=== PATIENT | male | born 1970 | race Caucasian/White ===

== ENCOUNTER 2017-12-04 19:23 | Emergency (ER) | payer OTHER ==
[2017-12-04 20:10] LABS: Absolute Lymphocytes (CBC) 0.9 K/uL (0.7-4.9); Absolute Monocytes 0.4 K/uL (0.1-1.3); Absolute Neutrophil 6.2 K/uL (1.8-8.0); Basophils % 0.5 % (0-1.3); Eosinophils % 1.7 % (0-4.4); Hematocrit 38.1 % (39.6-49.0); Lymphocytes % 11.7 % (15.3-44.8); MCH 27.1 pg (27.0-35.0); MCV 80.5 fL (80-100); MPV 7.9 fL (7.6-11.3); Monocytes % 5.4 % (3.3-12.3); RBC Red Blood Cell Count 4.73 M/uL (4.33-5.43)
[2017-12-04 20:19] LABS: Protime INR 1.07
[2017-12-04 20:34] LABS: Bicarbonate 25 mEq/L (21-31); Glucose Level 99 mg/dL (65-120); Potassium 4.2 mEq/L (3.6-5.0); Sodium Level 138 mEq/L (135-145)
[2017-12-04 20:41] LABS: ALT/SGPT 19 IU/L (10-60); AST/SGOT 20 IU/L (10-42); Albumin 4.2 g/dL (3.2-5.5); Alkaline Phosphatase 84 IU/L (42-121); BUN Blood Urea Nitrogen 17 mg/dL (6-20); Bilirubin Direct 0.1 mg/dL (0-0.2); Bilirubin Total 0.5 mg/dL (0.3-1.2); Creatine Phosphokinase 260 IU/L (22-269); Glomerular Filtration Rate > 90 mL/min (=/>90); Magnesium 1.9 mg/dL (1.8-2.5)
--- NOTE | 2017-12-04 20:42 | RAD REPORT ---
EXAM DESCRIPTION: RAD - Chest Single View - 12/04/2017 8:36 pm CLINICAL HISTORY: Left-sided chest pain COMPARISON: September 11 TECHNIQUE: AP portable chest image was obtained 2020 hours . FINDINGS: Lung volumes are low similar to prior study. Prominent right heart border is also similar to comparison. Heart and vasculature are normal. No measurable pleural effusion and no pneumothorax. No failure or volume overload suspected. No acute bone finding. No acute aortic findings suspected. IMPRESSION: No acute cardiopulmonary process. No significant change from August.
--- NOTE | 2017-12-04 21:22 | RAD REPORT ---
EXAM DESCRIPTION: CT - Chest For Pe Angio - 12/04/2017 9:03 pm CLINICAL HISTORY: Left-sided chest pain COMPARISON: Chest films same date, CT trauma study March 2016 TECHNIQUE: Dynamically enhanced 3 mm thick images of the chest were obtained during administration o f approximately 150mL Isovue 370 IV contrast. Coronal and oblique reconstruction images were generate d and reviewed. Exam utilizes a protocol to evaluate the pulmonary arterial tree. All CT scans are performed using dose optimization technique as appropriate and may include automated exposure control or mA/KV adjustment according to patient size. FINDINGS: No pulmonary emboli are identified. The aorta as imaged shows no acute or suspicious finding. No pericardial thickening or effusion. No infiltrate or mass in the lung parenchyma. No pleural effusion or pleural thickening. No mediastinal or hilar suspicious masses. No chest wall masses or abnormal axillary lymphadenopathy. IMPRESSION: No pulmonary emboli identified. No other significant or suspicious findings.
[2017-12-04 21:29] LABS: Urine Blood NEGATIVE (NEG); Urine Glucose NEGATIVE (NEG); Urine Protein NEGATIVE (NEG); Urine pH 6.5 (5.0-7.0)
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
[2017-12-04 22:32] LABS: CKMB Creatine Kinase MB 2.6 ng/ml (0.3-4.0)
[2017-12-04 23:58] VITALS: TEMP 98.7
[2017-12-05 00:27] VITALS: O2SAT 99
[2017-12-05 00:28] VITALS: BP 134/87
--- NOTE | 2017-12-07 22:48 | EKG ---
Test Date: 2017-12-04 Test Time: 20:18:55 Extraction Machine Operator: SHELBY MEASUREMENT RESULTS: Intervals: Rate: 88 CT: 148 QRSD: 80 QT: 354 QTc: 428 [place]: P: 46 CT: 148 QRS: 39 T: 18 INTERPRETIVE STATEMENTS: Normal sinus rhythm Normal ECG Compared to ECG 09/11/2017 12:52:56 Sinus tachycardia no longer present T-wave abnormality no longer present Electronically Signed On 12-07-17 22:46:56 CDT by Milton Treadwell
== END 2017-12-04 23:35 | disposition home or self-care (01) ==
LOC: ER 19:23
DX: R07.89 Other chest pain (principal); E11.9 Type 2 diabetes mellitus without complications; E78.5 Hyperlipidemia, unspecified; F41.9 Anxiety disorder, unspecified; F32.9 Major depressive disorder, single episode, unspecified; Z88.8 Allergy status to other drugs, medicaments and biological substances
CPT/HCPCS: 36415; 71045; 71275; 80048; 80076; 80156; 81003; 82550 ×2; 82553 ×2; 83735; 83880; 84484 ×2; 85025; 85379; 85610; 85730; 93005; 99284; Q9967

== ENCOUNTER 2018-06-01 11:14 | Emergency (ER) | payer OTHER ==
--- OUTSIDE RECORDS SUMMARY | 2018-06-01 11:16 | XMS REPORT | Summary of Care ---
:1970 Author Organization [facility] Address [address] [place] [phone] Encounter HQ Anabellantr_huan(FIN) [id number] Date(s): 03/07/16 - 04/05/[address] [phone] Discharge Disposition: Home or Self Care Attending Physician: Rick Eli MD Referring Physician: Rick Eli MD Vital Signs No data available for this section Problem List Condition Effective Dates Status Health Status Informant Cerebral palsy1 06/10/12 Active Gastroesophageal reflux disease2 04/20/12 Active Indigestion3 06/10/12 Active Laceration of eyelid4 06/10/12 Active 1Data migrated from [employer] on 01/21/15.2Data migrated from [employer] on 01/21/15.3Data migrated from [employer] on 01/21/15.4Data migrated from [employer] on 01/21/15. Allergies, Adverse Reactions, Alerts Substance Reaction Severity Status Abilify Active ARIPiprazole1 Active Dilaudid Active HYDROmorphone2 Active 1Data migrated from [employer] on 12/22/14. Originally documented as ABILIFY. breathing problems, [id number] migrated from [employer] on 12/22/14. Originally documented as DILAUDID. has problems sleeping Medications No data available for this section Results No data available for this section Immunizations No data available for this section Procedures No data available for this section Social History No data available for this section Assessment and Plan No data available for this section
--- OUTSIDE RECORDS SUMMARY | 2018-06-01 11:16 | XMS REPORT | Summary of Care ---
:1970 Author Organization [facility] Address [address] [place] [phone] Encounter HQ Encntr_huan(FIN) [id number] Date(s): 11/30/15 - 12/29/[address] Discharge Disposition: Home Attending Physician: Laxmi Dsouza MD Vital Signs No data available for [...] 12/22/14. Originally documented as ABILIFY. breathing problems, [id number] migrated from [employer] on 12/22/14. Originally [...]
--- OUTSIDE RECORDS SUMMARY | 2018-06-01 11:16 | XMS REPORT | Summary of Care ---
:1970 Author Organization [facility] Address [address] [place] [phone] Encounter HQ Owenr_huan(FIN) [id number] Date(s): 04/16/16 - 05/15/[address] Discharge Disposition: Home or Self Care Attending Physician: Rick Eli MD Vital Signs No [...] 12/22/14. Originally documented as ABILIFY. breathing problems, [id number] migrated from [employer] on 12/22/14. Originally [...]
--- OUTSIDE RECORDS SUMMARY | 2018-06-01 11:16 | XMS REPORT | Summary of Care ---
:1970 Author Organization [facility] Address [address] [place] [phone] Encounter HQ Anabellantr_huan(FIN) [id number] Date(s): 05/16/16 - 06/14/[address] Discharge Disposition: Home or Self Care [...] 12/22/14. Originally documented as ABILIFY. breathing problems, [id number] migrated from [employer] on 12/22/14. Originally [...]
--- OUTSIDE RECORDS SUMMARY | 2018-06-01 11:16 | XMS REPORT | Summary of Care ---
:1970 Author Organization [facility] Address [address] [place] [phone] Encounter HQ Anabellantr_huan(FIN) [id number] Date(s): 10/31/15 - 11/29/[address] [phone] Discharge Disposition: Home Attending Physician: Laxmi Dsouza [...] 12/22/14. Originally documented as ABILIFY. breathing problems, [id number] migrated from [employer] on 12/22/14. Originally [...]
--- OUTSIDE RECORDS SUMMARY | 2018-06-01 11:16 | XMS REPORT | Summary of Care ---
:1970 Author Organization [facility] Address [address] [place] [phone] Encounter HQ Encntr_huan(FIN) [id number] Date(s): 10/16/15 - 11/14/[address] [phone] Discharge Disposition: Home Attending Physician: Laxmi Dsouza MD Referring Physician: Laxmi Dsouza MD Vital Signs No [...] 12/22/14. Originally documented as ABILIFY. breathing problems, [id number] migrated from [employer] on 12/22/14. Originally [...]
--- OUTSIDE RECORDS SUMMARY | 2018-06-01 11:16 | XMS REPORT | Summary of Care ---
:1970 Author Organization [facility] Address [address] [place] [phone] Encounter HQ Anabellantr_huan(FIN) [id number] Date(s): 12/28/15 - 01/26/[address] Discharge Disposition: Home Attending Physician: Laxmi [...] 12/22/14. Originally documented as ABILIFY. breathing problems, [id number] migrated from [employer] on 12/22/14. Originally [...]
--- OUTSIDE RECORDS SUMMARY | 2018-06-01 11:16 | XMS REPORT | Summary of Care ---
:1970 Author Organization [facility] Address [address] [place] [phone] Encounter HQ Clemente_huan(FIN) [id number] Date(s): 01/23/16 - 02/21/[address] Discharge Disposition: Home Attending Physician: Laxmi Dsouza MD Referring Physician: Laxmi Dsouza MD Vital Signs Most recent to oldest [Reference Range]: 1 Blood Pressure [90-140/60-90 mmHg] 133/88 mmHg (01/23/16 8:55 AM) Peripheral Pulse Rate [60-100 bpm] 89 bpm (01/23/16 8:55 AM) Problem List Condition Effective Dates Status Health [...] 12/22/14. Originally documented as ABILIFY. breathing problems, [id number] migrated from [employer] on 12/22/14. Originally [...]
--- OUTSIDE RECORDS SUMMARY | 2018-06-01 11:16 | XMS REPORT | Continuity of Care Document ---
:1970 Author Organization Interface Problems Problem Status Onset Classification Date Comments Source Date Reported LT HAND Active [facility] 017 [place] LT HAND Active [facility] 017 [place] UNK Active [facility] 017 [place] UNK Active [facility] 017 [place] DX: R25.2=CRAMP AND Active [facility] WHEELCHAIR 017 [place] B R25.2 - CRAMP AND Active [facility] OPID SPASM S62.521A - 017 [place] DISP CEREBRAL PALSY Active [facility] 016 CEREBRAL PALSY Active [facility] 016 CEREBRAL PALSEY Active [facility] 016 CEREBRAL PALSEY Active [facility] 016 C80.8 Active [facility] 016 C80.8 Active [facility] 016 Cerebral Active Problem 01/21/2017 [facility], palsy<sup>1</sup> 012 migrated SMR from [facility] [place] [facility] on 01/21/15. Indigestion<sup>3</ Active Problem 01/21/2017 [facility] sup> 012 migrated S[facility] from [facility] [place] [facility] on 01/21/15. Laceration of Active Problem 01/21/2017 [facility], eyelid<sup>4</sup> 012 migrated S[facility] from [facility] [place] [employer] on 01/21/15. Cerebral Active Problem 10/31/2016 [facility], palsy<sup>1</sup> 012 migrated [place] from [employer] on 01/21/15. Indigestion<sup>3</ Active Problem 10/31/2016 [facility] sup> 012 migrated [place] from [employer] on 01/21/15. Laceration of Active Problem 10/31/2016 Data [facility] eyelid<sup>4</sup> 012 migrated [place] from [employer] on 01/21/15. Cerebral Active Problem 12/07/2016 [facility], palsy<sup>1</sup> 012 migrated Artie from [employer] on 01/21/15. Indigestion<sup>3</ Active Problem 12/07/2016 Data [facility] sup> 012 migrated Art[place] from [employer] on 01/21/15. Laceration of Active Problem 12/07/2016 Data [facility], eyelid<sup>4</sup> 012 migrated [place] from [employer] on 01/21/15. Gastroesophageal Active Problem 01/21/2017 Data [facility], reflux 012 migrated [facility] disease<sup>2</sup> from [facility] [place] [employer] on 01/21/15. Gastroesophageal Active Problem 10/31/2016 Data [facility], reflux 012 migrated [place] disease<sup>2</sup> from [employer] on 01/21/15. Gastroesophageal Active Problem 12/07/2016 Data [facility], reflux 012 migrated [place] disease<sup>2</sup> from [employer] on 01/21/15. 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/2017 [facility] disorder [place],[facility] Nasal fracture Resolved Problem 01/21/2017 [facility] [place] Hypertension Resolved Problem 01/21/2017 [facility] [place] Depression Resolved Problem 01/21/2017 [facility] [place],[facility] TBI (<span Resolved Problem 01/21/2017 [facility] ID="[id number]">C Sha onfirmed</span>) Artie Ulcer Resolved Problem 01/21/2017 [facility] [place] CRAMP AND SPASM Active [facility] Medications Medication Details Route Status Patient Ordering Order Source Instructions Provider Date Fentanyl 25 microgram, Inactive 0.5 mL, Route: 2016 Artie IV, Drug form: INJ, Q10Min, Dosing Weight 90, kg, PRN Pain Score 6-10, Start date: 12/04/16 12:38:00 CDT, Duration: 30 day, Stop date: 01/03/17 12:37:00 CDTNotes: (Same as: Sublimaze) Preservative free. Naloxone 0.4 mg, 1 mL, Inactive Route: IVP, Drug 2016 Artie form: INJ, Q2MIN, Dosing Weight 90, kg, PRN Narcotic Reversal, Start date: 12/04/16 12:38:00 CDT, Duration: 8 doses or times, Stop date: Limited # of timesNotes: Same as Narcan Flumazenil 0.2 mg, 2 mL, Inactive Route: IVP, Drug 2016 [place] form: INJ, PRN, Dosing Weight 90, kg, PRN Benzodiazepine Reversal, Initial dose, Start date: 12/04/16 12:38:00 CDT, Duration: 30 day, Stop date: 01/03/17 12:37:00 CDTNotes: (Same as: Romazicon) Hydromorphone 0.5 mg, 0.5 mL, Inactive Route: IVP, Drug 2016 [place] form: INJ, Q5Min, Dosing Weight 90, kg, PRN Pain Score 7-10, Start date: 12/04/16 12:38:00 CDT, Duration: 4 doses or times, Stop date: Limited # of timesNotes: Same as: Dilaudid Morphine 4 mg, 1 mL, Inactive Route: IVP, Drug 2016 Artie form: INJ, Q5Min, Dosing Weight 90, kg, PRN Pain Score 7-10, Start date: 12/04/16 12:38:00 CDT, Duration: 3 doses or times, Stop date: Limited # of timesNotes: (Same as:MORPhine Sulfate) Ondansetron 4 mg, 2 mL, Inactive Route: IVP, Drug 2016 Art[place] form: INJ, ONCE, Dosing Weight 90, kg, PRN Nausea & Vomiting, Start date: 12/04/16 12:38:00 CDTNotes: (Same as: Zofran) MEDICATION WASTE Product Size: 4 mg Product Wasted: ___ mg Oxycodone 10 mg, 2 tab, Inactive Route: PO, Drug 2016 Artie form: TAB, Q4H, Dosing Weight 90, kg, PRN Pain Score 7-10, Start date: 12/04/16 12:38:00 CDT, Duration: 30 day, Stop date: 01/03/17 12:37:00 CDTNotes: (Same as: Roxicodone) ondansetron Route: IV, Drug Inactive (ANES) form: INJ, ONCE, 2016 Artie Stop date: 12/04/16 12:12:00 CDT acetaminophen 650 mg, PO, Q4H, Active 325 mg oral PRN Pain 2016 Artie tablet 1-3/Temp > 100.4 F, 0 Refill(s) tramadol 50 mg, PO, Q6H, Active hydrochloride PRN Pain Score 2016 Artie 50 MG Oral 1-3, 0 Refill(s) Tablet Tramadol 50 mg, 1 tab, Inactive Route: PO, Drug 2016 Art[place] form: TAB, Q6H, Dosing Weight 90, kg, PRN Pain Score 1-3, Start date: 12/04/16 11:44:00 CDT, Duration: 30 day, Stop date: 01/03/17 11:43:00 CDTNotes: Not to exceed 400mg/day. (Same As: Ultram) Acetaminophen 650 mg, 2 tab, Inactive Route: PO, Drug 2016 Artie form: TAB, Q4H, Dosing Weight 90, kg, PRN Pain 1-3/Temp > 100.4 F, Start date: 12/04/16 11:44:00 CDT, Duration: 30 day, Stop date: 01/03/17 11:43:00 CDTNotes: Do not exceed 4 gm/day. (Same as: Tylenol) dexamethasone Route: IV, Drug Inactive MH (ANES) form: INJ, ONCE, 2016 Artie Stop date: 12/04/16 11:32:00 CDT ceFAZolin Route: IV, Drug Inactive MH (ANES) form: INJ, ONCE, 2016 [place] Stop date: 12/04/16 11:27:00 CDT fentaNYL (ANES) Route: IV, Drug Inactive MH form: INJ, ONCE, 2016 Art[place] Stop date: 12/04/16 11:27:00 CDT propofol (ANES) Route: IV, Drug Inactive MH form: INJ, ONCE, 2016 Artie Stop date: 12/04/16 11:27:00 CDT midazolam Route: IV, Drug Inactive MH (ANES) form: SOLN, 2016 Artie ONCE, Stop date: 12/04/16 11:27:00 CDT LR 1000 mL INJ Route: IV, Total Inactive (ANES) Volume: 1,000, 2016 Artie Start date: 12/04/16 10:00:00 CDT, Stop date: 12/04/16 11:00:00 CDT ceFAZolin + 2 gm, Route: Inactive sodium chloride IVPB, OLYA, 2016 Artie 0.9% INJ 100 mL Start date: 12/04/16 8:00:00 CDT, Duration: 1 doses or timesNotes: (Same As: Abdulaziz Mendes) MEDICATION WASTE Product Size: 1000 mg Product Wasted: ___ mg Calcium 1,000 mL, Rate: Inactive Chloride 0.0014 25 ml/hr, Infuse 2016 Artie MEQ/ML / over: 40 hr, Potassium Route: IV, Chloride 0.004 Dosing Weight 90 MEQ/ML / Sodium kg, Total Chloride 0.103 Volume: 1,000, MEQ/ML / Sodium Start date: Lactate 0.028 12/04/16 7:33:00 MEQ/ML CDT, Duration: Injectable 30 day, Stop Solution date: 01/03/17 7:32:00 CDT rifaMPIN 300 mg 600 mg=2 cap, Active oral capsule PO, BID, 0 2016 [place] Refill(s) diazepam 5 mg 5 mg=1 tab, PO, Inactive oral tablet QID, 0 Refill(s) 2016 [place] pregabalin 75 75 mg=1 cap, PO, Active mg oral capsule TID, 0 Refill(s) 2016 [place] acetaminophen-c 1 tab, PO, TID, No Longer odeine #3 0 Refill(s) Active 2016 [place] Bupropion 100, PO, BID, .5 Active tab bid, 0 2016 [place] Refill(s) sertraline 100 200 mg=2 tab, Active mg oral tablet PO, Daily, 0 2016 [place] Refill(s) Allergies, Adverse Reactions, Alerts Substance Category Reaction Severity Reaction Status Date Comments Source type Reported Abilify Assertion Drug Active [facility] allergy [place] ARIPiprazol Assertion Drug Active Data [facility] e<sup>1</lofton allergy migrated [place] p> from [employer] on 12/22/14. Originally documented as ABILIFY. breathing problems, numbness Dilaudid Assertion Drug Active [facility] allergy [place] HYDROmorpho Assertion Drug Active Data [facility] ne<sup>2</s allergy migrated [place] up> from [employer] on 12/22/14. Originally documented as DILAUDID. has problems sleeping Immunizations Immunization Date Given Site Status Last Updated Comments Source Results Order Results Value Reference Date Interpretation Comments Source Name Range Vital Signs Vital Sign Value Date Comments Source Respitory Rate 15 12/04/2016 [facility] Systolic (mm Hg) 131 12/04/2016 [facility] Diastolic (mm Hg) 77 12/04/2016 [facility] Respitory Rate 16 12/04/2016 [facility] Systolic (mm Hg) 157 12/04/2016 [facility] Diastolic (mm Hg) 76 12/04/2016 [facility] Respitory Rate 15 12/04/2016 [facility] Systolic (mm Hg) 150 12/04/2016 [facility] Diastolic (mm Hg) 106 12/04/2016 [facility] Heart Rate 72 11/27/2016 [facility] BMI Calculated 30.17 11/27/2016 [facility] Weight 90 11/27/2016 [facility] Height 172.72 cm 11/27/2016 [facility] Systolic (mm Hg) 133 01/23/2016 [facility] Diastolic (mm Hg) 88 01/23/2016 [facility] Heart Rate 89 01/23/2016 [facility] Height 175.26 cm 10/16/2015 [facility] Heart Rate 68 10/16/2015 [facility] Systolic (mm Hg) 136 10/16/2015 [facility] Diastolic (mm Hg) 96 10/16/2015 [facility] Encounters Location Location Encounter Encounter Reason Attending ADM DC Status Source Details Type Number For Provider Date Date Visit [facility] Tots [id number] Laxmi 09/18 10/18 [facility] OP [id number] Laxmi 10/16 11/14 [facility] ([place], [place] Tots [id number] Laxmi 10/30 11/29 [facility] Lianna Emmanuel [facility] Tots [id number] Laxmi 11/29 12/29 [facility] Lianna [facility] Tots [id number] Laxmi 12/27 01/26 [facility] Lianna [place] [facility] OP [id number] Laxmi 01/22 02/21 [facility] ([place], [place] Tots [id number] Rick 03/07 04/06 [facility] Sreedhar Emmanuel [facility] Tots [id number] Rick 04/16 05/16 [facility] Sreedhar Emmanuel [facility] Tots [id number] Rick 05/16 06/15 [facility] [id number] Jc Luis 10/28 10/29 [facility] /2016 [facility] Day Surgery [id number] Jc Luis 12/04 12/04 [facility] OP Therapy [id number] Jc Smith 12/20 01/19 [facility] [place] /[place] Procedures Procedure Code Date Perfomer Comments Source Appendectomy [id number] [facility] [place] Operation<sup>1</s [id number] placed [facility] up> Baclofen pump [place] Appendectomy [id number] [facility] Operation<sup>1</s [id number] placed [facility] up> Baclofen pump
--- OUTSIDE RECORDS SUMMARY | 2018-06-01 11:16 | XMS REPORT | Summary of Care ---
:1970 Author Organization [facility] Address [address] [place] [phone] Encounter [facility]STAS[facility]) [id number] Date(s): 09/18/15 - 10/17/[address] [phone] Discharge Disposition: Home Attending Physician: Laxmi Dsouza MD Referring Physician: Laxmi Dsouza MD Vital Signs Most recent to oldest [Reference Range]: 1 Height 175.26 cm (10/16/15 1:31 PM) Blood Pressure [90-140/60-90 mmHg] 136/96 mmHg (10/16/15 1:31 PM) Peripheral Pulse Rate [60-100 bpm] 68 bpm (10/16/15 1:31 PM) Problem List Condition Effective Dates Status Health [...] 12/22/14. Originally documented as ABILIFY. breathing problems, [id number] migrated from [employer] on 12/22/14. Originally [...]
--- OUTSIDE RECORDS SUMMARY | 2018-06-01 11:17 | XMS REPORT | Summary of Care ---
:1970 Author Organization [facility] Address [id number] [place] [phone]- Encounter [facility](FIN) [id number] Date(s): 12/04/16 - 12/04/16 [facility] [id number] [place] [phone] Discharge Disposition: Home or Self Care Attending Physician: Jc Smith MD Referring Physician: Jc Smith MD Vital Signs Most recent to oldest 1 2 3 [Reference Range]: Height 172.72 cm (11/27/16 1:04 PM) Blood Pressure [90-140/60-90 131/77 mmHg 157/76 mmHg 150/106 mmHg mmHg] (12/04/16 2:30 PM) *HI* *HI* (12/04/16 1:05 PM) (12/04/16 12:50 PM) Respiratory Rate [14-20 BRMIN] 15 BRMIN 16 BRMIN 15 BRMIN (12/04/16 2:30 PM) (12/04/16 1:05 PM) (12/04/16 12:50 PM) Peripheral Pulse Rate [60-100 72 bpm bpm] (11/27/16 1:54 PM) Weight 90 kg (11/27/16 1:04 PM) Body Mass Index 30.17 m2 (11/27/16 1:04 PM) Problem List Condition Effective Dates Status Health Status Informant Anxiety(Confirmed) Resolved Cerebral palsy(Confirmed) Resolved Cerebral palsy1 06/10/12 Active CVA (cerebral vascular Resolved accident)(Confirmed) Carpal tunnel syndrome(Confirmed) Active Expressive language Resolved disorder(Confirmed) Nasal fracture(Confirmed) Resolved Gastroesophageal reflux disease2 04/20/12 Active Hypertension(Confirmed) Resolved Indigestion3 06/10/12 Active Laceration of eyelid4 06/10/12 Active Depression(Confirmed) Resolved TBI (traumatic brain Resolved injury)(Confirmed) Ulcer(Confirmed) Resolved 1Data migrated from [employer] on 01/21/15.2Data migrated from [employer] on 01/21/15.3Data migrated from [employer] on 01/21/15.4Data migrated from [employer] on 01/21/15. Allergies, Adverse Reactions, Alerts Substance Reaction Severity Status Abilify Active ARIPiprazole1 Active Dilaudid Active HYDROmorphone2 Active 1Data migrated from [employer] on 12/22/14. Originally documented as ABILIFY. breathing problems, [id number] migrated from [employer] on 12/22/14. Originally documented as DILAUDID. has problems sleeping Medications acetaminophen 650 mg, 2 tab, Route: PO, Drug form: TAB, Q4H, Dosing Weight 90, kg, PRN Pain 1- 3/Temp > 100.4 F, Start date: 12/04/16 11:44:00 CDT, Duration: 30 day, Stop date : 01/03/17 11:43:00 CDT Notes: Do not exceed 4 gm/day. (Same as: Tylenol) Start Date: 12/04/16 Stop Date: 12/04/16 Status: Discontinuedacetaminophen 325 mg oral tablet 650 mg, PO, Q4H, PRN Pain 1-3/Temp > 100.4 F, 0 Refill(s) Start Date: 12/04/16 Status: Orderedacetaminophen-codeine #3 1 tab, PO, TID, 0 Refill(s) Start Date: 11/27/16 Stop Date: 12/04/16 Status: DiscontinuedANES flumazenil 0.2 mg, 2 mL, Route: IVP, Drug form: INJ, PRN, Dosing Weight 90, kg, PRN Benzodiazepine Reversal, Initial dose, Start date: 12/04/16 12:38:00 CDT, Duration: 30 day, Stop date: 01/03/17 12:37:00 CDT Notes: (Same as: Romazicon) Start Date: 12/04/16 Stop Date: 12/04/16 Status: DiscontinuedANES HYDROmorphone 0.5 mg, 0.5 mL, Route: IVP, Drug form: INJ, Q5Min, Dosing Weight 90, kg, PRN Pain Score 7-10, Start date: 12/04/16 12:38:00 CDT, Duration: 4 doses or times, Stop date: Limited # of times Notes: Same as: Dilaudid Start Date: 12/04/16 Stop Date: 12/04/16 Status: DiscontinuedANES morphine Sulfate 4 mg, 1 mL, Route: IVP, Drug form: INJ, Q5Min, Dosing Weight 90, kg, PRN Pain Score 7-10, Start date: 12/04/16 12:38:00 CDT, Duration: 3 doses or times, Stop date: Limited # of times Notes: (Same as:MORPhine Sulfate) Start Date: 12/04/16 Stop Date: 12/04/16 Status: DiscontinuedANES naloxone 0.4 mg, 1 mL, Route: IVP, Drug form: INJ, Q2MIN, Dosing Weight 90, kg, PRN Narcotic Reversal, Start date: 12/04/16 12:38:00 CDT, Duration: 8 doses or times , Stop date: Limited # of times Notes: Same as Narcan Start Date: 12/04/16 Stop Date: 12/04/16 Status: DiscontinuedANES ondansetron 4 mg, 2 mL, Route: IVP, Drug form: INJ, ONCE, Dosing Weight 90, kg, PRN Nausea & amp; Vomiting, Startdate: 12/04/16 12:38:00 CDT Notes: (Same as: [place]) MEDICATION WASTE Product Size: 4 mgProduct Wasted: ___ mg Start Date: 12/04/16 Stop Date: 12/04/16 Status: DiscontinuedANES oxyCODONE 10 mg, 2 tab, Route: PO, Drug form: TAB, Q4H, Dosing Weight 90, kg, PRN Pain Score 7-10, Start date:12/04/16 12:38:00 CDT, Duration: 30 day, Stop date: 01/03 12:37:00 CDT Notes: (Same as: Roxicodone) Start Date: 12/04/16 Stop Date: 12/04/16 Status: DiscontinuedbuPROPion 100, PO, BID, .5 tab bid, 0 Refill(s) Start Date: 11/27/16 Status: OrderedceFAZolin (ANES) Route: IV, Drug form: INJ, ONCE, Stop date: 12/04/16 11:27:00 CDT Start Date: 12/04/16 Stop Date: 12/04/16 Status: CompletedceFAZolin + sodium chloride 0.9% INJ 100 mL 2 gm, Route: IVPB, ONCALL, Start date: 12/04/16 8:00:00 CDT, Duration: 1 doses or times Notes: (Same As: Abdulaziz Mendes) MEDICATION WASTE Product Size: 1000 mgProduct Wasted: ___ mg Start Date: 12/04/16 Stop Date: 12/04/16 Status: Discontinueddexamethasone (ANES) Route: IV, Drug form: INJ, ONCE, Stop date: 12/04/16 11:32:00 CDT Start Date: 12/04/16 Stop Date: 12/04/16 Status: Completeddiazepam 5 mg oral tablet 5 mg=1 tab, PO, QID, 0 Refill(s) Start Date: 11/27/16 Stop Date: 11/27/16 Status: CompletedfentaNYL 25 microgram, 0.5 mL, Route: IV, Drug form: INJ, Q10Min, Dosing Weight 90, kg, PRN Pain Score 6-10, Start date: 12/04/16 12:38:00 CDT, Duration: 30 day, Stop date: 01/03/17 12:37:00 CDT Notes: (Same as: Sublimaze) Preservative free. Start Date: 12/04/16 Stop Date: 12/04/16 Status: DiscontinuedfentaNYL (ANES) Route: IV, Drug form: INJ, ONCE, Stop date: 12/04/16 11:27:00 CDT Start Date: 12/04/16 Stop Date: 12/04/16 Status: CompletedLactated Ringers 1,000 mL 1,000 mL, Rate: 25 ml/hr, Infuse over: 40 hr, Route: IV, Dosing Weight 90 kg, Total Volume: 1,000, Start date: 12/04/16 7:33:00 CDT, Duration: 30 day, Stop date: 01/03/17 7:32:00 CDT Start Date: 12/04/16 Stop Date: 12/04/16 Status: DiscontinuedLR 1000 mL INJ (ANES) Route: IV, Total Volume: 1,000, Start date: 12/04/16 10:00:00 CDT, Stop date: 11:00:00 CDT Start Date: 12/04/16 Stop Date: 12/04/16 Status: Completedmidazolam (ANES) Route: IV, Drug form: SOLN, ONCE, Stop date: 12/04/16 11:27:00 CDT Start Date: 12/04/16 Stop Date: 12/04/16 Status: Completedondansetron (ANES) Route: IV, Drug form: INJ, ONCE, Stop date: 12/04/16 12:12:00 CDT Start Date: 12/04/16 Stop Date: 12/04/16 Status: Completedpregabalin 75 mg oral capsule 75 mg=1 cap, PO, TID, 0 Refill(s) Start Date: 11/27/16 Status: Orderedpropofol (ANES) Route: IV, Drug form: INJ, ONCE, Stop date: 12/04/16 11:27:00 CDT Start Date: 12/04/16 Stop Date: 12/04/16 Status: CompletedrifaMPIN 300 mg oral capsule 600 mg=2 cap, PO, BID, 0 Refill(s) Start Date: 11/27/16 Status: Orderedsertraline 100 mg oral tablet 200 mg=2 tab, PO, Daily, 0 Refill(s) Start Date: 11/27/16 Status: Orderedtramadol 50 mg, 1 tab, Route: PO, Drug form: TAB, Q6H, Dosing Weight 90, kg, PRN Pain Score 1-3, Start date: 12/04/16 11:44:00 CDT, Duration: 30 day, Stop date: 01/03 11:43:00 CDT Notes: Not to exceed 400mg/day. (Same As: Ultram) Start Date: 12/04/16 Stop Date: 12/04/16 Status: Discontinuedtramadol 50 mg oral tablet 50 mg, PO, Q6H, PRN Pain Score 1-3, 0 Refill(s) Start Date: 12/04/16 Status: Ordered Results No data available for this section Immunizations No data available for this section Procedures Procedure Date Related Diagnosis Body Site Appendectomy Operation1 1placed Baclofen pump Social History Social History Type Response Smoking Status Never smoker; Previous treatment: None; Ready to change: No; Concerns about tobacco use in household: No; Exposure to Tobacco Smoke None; Cigarette Smoking Last 365 Days No; Reg Smoking Cessation Counseling No Assessment and Plan No data available for this section
--- OUTSIDE RECORDS SUMMARY | 2018-06-01 11:17 | XMS REPORT | Summary of Care ---
:1970 Author Organization [facility] Address [address] [place], [place] [address]- Encounter [facility](FIN) [id number] Date(s): 10/28/16 - 10/28/16 [facility] [address] [place] [address]- Discharge Disposition: Home or Self Care Attending Physician: Jc Smith MD Referring Physician: Jc Smith MD Vital Signs No data available for [...] 12/22/14. Originally documented as ABILIFY. breathing problems, [id number] migrated from [employer] on 12/22/14. Originally [...]
--- OUTSIDE RECORDS SUMMARY | 2018-06-01 11:17 | XMS REPORT | Summary of Care ---
:1970 Author Organization [facility] Encounter [facility]) [id number] Date(s): 12/20/16 - 01/18/17 [facility] [place] Discharge Disposition: Home or Self Care Attending Physician: Jc Smith MD Vital Signs No [...] 12/22/14. Originally documented as ABILIFY. breathing problems, [id number] migrated from [employer] on 12/22/14. Originally [...]
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
[2018-06-01] MEDS ORDERED: HYDROCODONE/APAP 5/325 MG TAB ONE (12:06)
[2018-06-01 13:19] VITALS: TEMP 98.9
[2018-06-01 13:20] VITALS: O2SAT 95
[2018-06-01 13:21] VITALS: BP 121/87
== END 2018-06-01 13:14 | disposition home or self-care (01) ==
LOC: ER 11:14
DX: T21.23XA Burn of second degree of upper back, initial encounter (principal); X11.8XXA Contact with other hot tap-water, initial encounter; Y93.9 Activity, unspecified; Y92.009 Unspecified place in unspecified non-institutional (private) residence as the place of occurrence of the external cause; Z88.5 Allergy status to narcotic agent; Z88.8 Allergy status to other drugs, medicaments and biological substances; E78.5 Hyperlipidemia, unspecified; E11.9 Type 2 diabetes mellitus without complications; F32.9 Major depressive disorder, single episode, unspecified; F41.9 Anxiety disorder, unspecified
CPT/HCPCS: 99284

== ENCOUNTER 2018-08-29 18:56 | Emergency (ER) | payer OTHER ==
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
[2018-08-29] MEDS ORDERED: MORPHINE 4 MG/ML SYR ONE (20:11)
[2018-08-29] MEDS ORDERED: ONDANSETRON 4 MG/2 ML VIAL ONE (20:11)
[2018-08-29] MEDS ORDERED: NA CHLORIDE 0.9% 500 ML ONE (20:11)
[2018-08-29 20:19] LABS: Absolute Lymphocytes (CBC) 1.3 K/uL (0.7-4.9); Absolute Monocytes 0.6 K/uL (0.1-1.3); Absolute Neutrophil 3.8 K/uL (1.8-8.0); Basophils % 0.5 % (0-1.3); Eosinophils % 2.7 % (0-4.4); Hematocrit 42.6 % (39.6-49.0); Lymphocytes % 21.5 % (15.3-44.8); MPV 7.7 fL (7.6-11.3); Monocytes % 10.2 % (3.3-12.3); RBC Red Blood Cell Count 5.23 M/uL (4.33-5.43)
[2018-08-29 20:40] LABS: Albumin 3.7 g/dL (3.4-5.0); Bilirubin Direct 0.1 mg/dL (0-0.2); Bilirubin Total 0.3 mg/dL (0.2-1.0); Potassium 4.1 mmol/L (3.5-5.1)
--- NOTE | 2018-08-29 21:57 | RAD REPORT ---
EXAM DESCRIPTION: CT - Abdomen Pelvis W Contrast - 08/29/2018 9:33 pm CLINICAL HISTORY: Abdominal pain with dysuria COMPARISON: 2015 TECHNIQUE: Computed axial tomography of the abdomen pelvis was obtained. 100 cc Isovue-300 was admin istered intravenously. Oral contrast was not requested which limits evaluation of bowel. All CT scans are performed using dose optimization technique as appropriate and may include automated exposure control or mA/KV adjustment according to patient size. FINDINGS: The liver, spleen, pancreas, adrenal and kidneys appear unremarkable. There is no evidence of diverticulitis. The appendix is not seen. A neuro stimulator device is in place within the spinal canal. An umbilical hernia contains fat. The neck measures 15 millimeters Small left inguinal hernia contains fat IMPRESSION: No acute abnormality is displayed.
--- NOTE | 2018-08-29 22:05 | RAD REPORT ---
EXAM DESCRIPTION: US - Scrotum Testicles - 08/29/2018 9:26 pm CLINICAL HISTORY: Scrotal pain COMPARISON: None FINDINGS: Right testicle measures 4.6 x 2.5 x 3 centimeters. Echotexture is homogeneous. Normal bloo d flow Left testicle measures 4.3 x 2.3 x 2.7 centimeters. Echotexture is homogeneous. Normal blood flow The epididymides are normal in size and echotexture. Normal blood flow is seen. 5 millimeter left spermatocele Small hydroceles probably physiologic IMPRESSION: 5 millimeter left spermatocele
[2018-08-29 22:19] LABS: Urine Blood NEGATIVE (NEG); Urine Glucose NEGATIVE (NEG); Urine Protein NEGATIVE (NEG); Urine Specific Gravity 1.015 (1.005-1.030); Urine pH 7.5 (5.0-7.0)
[2018-08-29] MEDS ORDERED: AZITHROMYCIN 250 MG TAB ONE (22:27)
[2018-08-29] MEDS ORDERED: CEFTRIAXONE/SWI 1gm 1 GM/10 ML SYR ONE (22:28)
[2018-08-29] MEDS ORDERED: KETOROLAC 30 MG/ML INJ ONE (22:28)
[2018-08-29] MEDS ORDERED: HYDROCODONE/APAP 7.5/325 MG TAB ONE (22:28)
[2018-08-29 22:30] LABS: Urine Bacteria NONE SEEN /HPF (NONE SEEN); Urine Culture Reflex Order NOT NEEDED; Urine RBC <5 /HPF (NONE SEEN)
--- NOTE | 2018-08-29 22:48 | EDPHYS ---
Physician Documentation [facility] Name: Dante Staton Age: 47 yrs Sex: Male : 1970 Arrival Date: 08/29/2018 Time: 19:01 Bed 19 Private MD: ED Physician Ladarius Gillette HPI: 08/29 19:45 This 47 yrs old Male presents to ER via EMS with complaints of Pain With cp Urination, Abdominal Pain. 19:45 The patient presents with swelling, tenderness, of the head of penis and shaft of cp penis, urinary symptoms, pain with urination. Onset: The symptoms/episode began/occurred today. Associated signs and symptoms: Pertinent positives: abdominal pain, Pertinent negatives: diarrhea, fever, hematuria, vomiting. Severity of symptoms: in the emergency department the symptoms are unchanged, despite home interventions. Patient reports having unprotected intercourse with new partner last night. Historical: - Allergies: 19:19 hydromorphone HCl; em 19:19 ARIPIPRAZOLE; em 19:19 meperidine HCl; em - PMHx: 19:19 Anxiety; Cerebral Palsy; Depression; Diabetes - NIDDM; gastric ulcer; Hyperlipidemia; em CP; insomina; TBI; - Immunization history:: Adult Immunizations up to date. - Social history:: Smoking status: Patient/guardian denies using tobacco. - Ebola Screening: : Patient negative for fever greater than or equal to 101.5 degrees Fahrenheit, and additional compatible Ebola Virus Disease symptoms Patient denies exposure to infectious person Patient denies travel to an Ebola-affected area in the 21 days before illness onset No symptoms or risks identified at this time. ROS: 20:00 Constitutional: Negative for body aches, chills, fever, poor PO intake. cp 20:00 Eyes: Negative for injury, pain, redness, and discharge. cp 20:00 ENT: Negative for drainage from ear(s), ear pain, sore throat, difficulty swallowing, difficulty handling secretions. 20:00 Cardiovascular: Negative for chest pain, palpitations. 20:00 Respiratory: Negative for cough, shortness of breath, wheezing. 20:00 Abdomen/GI: Positive for abdominal pain, Negative for vomiting, diarrhea, constipation, black/tarry stool, rectal bleeding. 20:00 : Positive for urinary symptoms, penile pain, testicular pain 20:00 Skin: Negative for cellulitis, rash. 20:00 All other systems are negative. Exam: 20:05 Constitutional: The patient appears in no acute distress, alert, awake, non-toxic, well cp developed, well nourished, uncomfortable. 20:05 Head/Face: Normocephalic, atraumatic. cp 20:05 Eyes: Periorbital structures: appear normal, Conjunctiva: normal, no exudate, no injection, Sclera: no appreciated abnormality, Lids and lashes: appear normal, bilaterally. 20:05 ENT: External ear(s): are unremarkable, Nose: is normal, Mouth: Lips: normal, Oral mucosa: normal. 20:05 Chest/axilla: Inspection: normal, Palpation: is normal, no crepitus, no tenderness. 20:05 Cardiovascular: Rate: normal, Rhythm: regular. cp 20:05 Respiratory: the patient does not display signs of respiratory distress, Respirations: cp normal, no use of accessory muscles, no retractions, no splinting, no tachypnea, labored breathing, is not present. 20:05 Abdomen/GI: Inspection: scar(s), Bowel sounds: active, all quadrants, Palpation: soft, in all quadrants, moderate abdominal tenderness, in the right lower quadrant and left lower quadrant, rebound tenderness, is not appreciated, involuntary guarding, is not appreciated. 20:05 : Male external genitalia: swelling, penile, that is mild, tenderness, of the head of penis and shaft of penis is noted, noted ecchymosis penile shaft, Sexual behavior: the patient is sexually active. 20:05 Skin: cellulitis, is not appreciated, no rash present. Vital Signs: 19:19 BP 161 / 93; Pulse 86; Resp 18; Temp 98.0; Pulse Ox 97% on R/A; Weight 127.01 kg; em Height 5 ft. 9 in. (175.26 cm); Pain 10/10; 20:30 BP 132 / 94; Pulse 78; Resp 18; Pulse Ox 99% ; rr5 21:40 BP 129 / 96; Pulse 84; Resp 19; Pulse Ox 99% ; rr5 22:30 BP 133 / 70; Pulse 80; Resp 17; Pulse Ox 99% ; rr5 23:30 BP 121 / 76; Pulse 76; Resp 18; Pulse Ox 98% ; rr5 01/06 00:00 BP 125 / 70; Pulse 75; Resp 18; Pulse Ox 98% ; rr5 08/29 19:19 Body Mass Index 41.35 (127.01 kg, 175.26 cm) em MDM: 08/29 19:03 Patient medically screened. [facility] 22:45 Data reviewed: vital signs, nurses notes, and as a result, I will discharge patient. 22:45 Counseling: I had a detailed discussion with the patient and/or guardian regarding: the cp historical points, exam findings, and any diagnostic results supporting the discharge/admit diagnosis, lab results, radiology results, to return to the emergency department if symptoms worsen or persist or if there are any questions or concerns that arise at home. Response to treatment: the patient's symptoms have markedly improved after treatment. 08/29 19:37 Order name: Urine Microscopic Only; Complete Time: 22:39 cp 08/29 22:39 Interpretation: Reviewed. cp 08/29 19:37 Order name: Basic Metabolic Panel; Complete Time: 22:08 cp 08/29 22:08 Interpretation: Normal except: GFR 73. cp 08/29 19:37 Order name: CBC with Diff; Complete Time: 22:08 cp 08/29 19:37 Order name: Creatinine for Radiology; Complete Time: 22:08 cp 08/29 19:37 Order name: Hepatic Function; Complete Time: 22:08 cp 08/29 19:37 Order name: Lipase; Complete Time: 22:08 cp 08/29 19:37 Order name: US Scrotum Testicles; Complete Time: 22:08 cp 08/29 19:39 Order name: CT Abd/Pelvis - W/Contrast: no oral contrast; Complete Time: 22:08 cp 08/29 22:05 Order name: Urine Dipstick--Ancillary (enter results); Complete Time: 22:39 em1 08/29 22:39 Interpretation: Normal except: UPH 7.5. cp 08/29 19:37 Order name: Urine Dipstick-Ancillary (obtain specimen); Complete Time: 22:07 cp 08/29 19:37 Order name: IV Saline Lock; Complete Time: 20:11 cp 08/29 19:37 Order name: Labs collected and sent; Complete Time: 20:11 cp 08/29 19:39 Order name: Bladder Scanner: pre and post void; Complete Time: 19:46 cp Administered Medications: 20:10 Drug: Zofran 4 mg Route: IVP; Site: right forearm; rr5 08/30 00:00 Follow up: Response: No adverse reaction rr5 08/29 20:11 Drug: NS 0.9% 500 ml Route: IV; Rate: bolus; Site: right forearm; rr5 21:30 Follow up: Response: No adverse reaction; IV Status: Completed infusion; IV Intake: rr5 500ml 20:12 Drug: morphine 4 mg Route: IVP; Site: right forearm; rr5 08/30 00:00 Follow up: Response: No adverse reaction rr5 08/29 22:30 Drug: Hydrocodone-Acetaminophen (7.5 mg-325 mg) 1 tabs Route: PO; rr5 08/30 00:00 Follow up: Response: No adverse reaction rr5 08/29 22:32 Drug: Zithromax 1 grams Route: PO; rr5 08/30 00:00 Follow up: Response: No adverse reaction rr5 08/29 22:33 Drug: TORadol 30 mg Route: IVP; Site: right forearm; rr5 08/30 00:00 Follow up: Response: No adverse reaction rr5 08/29 22:35 Drug: Rocephin - (cefTRIAXone) 1 grams Route: IVPB; Infused Over: 30 mins; Site: right rr5 forearm; 23:05 Follow up: IV Status: Completed infusion rr5 Disposition: 08/29/18 22:48 Discharged to Home. Impression: Abdominal and pelvic pain - s/p sexual encounter. - Condition is Stable. - Discharge Instructions: Abdominal Pain, Adult, Pelvic Pain, Male. - Prescriptions for Anaprox DS 550 mg Oral Tablet - take 1 tablet by ORAL route every 12 hours As needed; 20 tablet. Ultram 50 mg Oral Tablet - take 1 tablet by ORAL route every 6 hours As needed; 15 tablet. - Medication Reconciliation Form, Thank You Letter, Antibiotic Education, Prescription Opioid Use form. - Follow up: Private Physician; When: 2 - 3 days; Reason: Recheck today's complaints. - Problem is new. - Symptoms have improved. Addendum: 09/02/2018 07:36 Co-signature as Attending Physician, Ladarius Gillette MD I agree with the assessment and c sher plan of care. Signatures: Dispatcher [employer] Ladarius Sheehan MD MD cha Munoz, Edgar, SHOE HANDLER SHOE HANDLER em Ladarius Rubin PA PA cp Chalino Ashton, RN RN rr5 Corrections: (The following items were deleted from the chart) 08/30 00:23 08/29 22:48 08/29/2018 22:48 Discharged to Home. Impression: Abdominal and pelvic pain rr5 - s/p sexual encounter. Condition is Stable. Forms are Medication Reconciliation Form, Thank You Letter, Antibiotic Education, Prescription Opioid Use. Follow up: Private Physician; When: 2 - 3 days; Reason: Recheck today's complaints. Problem is new. Symptoms have improved. cp
--- NOTE | 2018-08-29 22:48 | ER ---
Nurse's Notes [facility] Name: Dante Staton Age: 47 yrs Sex: Male : 1970 Arrival Date: 08/29/2018 Time: 19:01 Bed 19 Private MD: Diagnosis: Abdominal and pelvic pain-s/p sexual encounter Presentation: 08/29 19:13 Presenting complaint: EMS states: called out for abdominal pain and burning with em urination since last night, denies N/V/fever, pt also reports having sex last night and c/o of penile pain, swelling and bruising noted to area. Transition of care: patient was not received from another setting of care. Onset of symptoms was August 28, 2017. Risk Assessment: Do you want to hurt yourself or someone else? Patient reports no desire to harm self or others. Initial Sepsis Screen: Does the patient meet any 2 criteria? No. Patient's initial sepsis screen is negative. Does the patient have a suspected source of infection? Yes: Dysuria/Frequency/Urgency/UTI. Care prior to arrival: None. 19:13 Method Of Arrival: EMS: [facility] em 19:21 Acuity: ROMAIN 3 iw Triage Assessment: 19:19 General: Appears in no apparent distress. comfortable, Behavior is calm, cooperative. em Pain: Complains of pain in abdomen and pelvis Pain currently is 10 out of 10 on a pain scale. GI: Abdomen is round non-distended, Bowel sounds present X 4 quads. Historical: - Allergies: 19:19 hydromorphone HCl; em 19:19 ARIPIPRAZOLE; em 19:19 meperidine HCl; em - PMHx: 19:19 Anxiety; Cerebral Palsy; Depression; Diabetes - NIDDM; gastric ulcer; Hyperlipidemia; em CP; insomina; TBI; - Immunization history:: Adult Immunizations up to date. - Social history:: Smoking status: Patient/guardian denies using tobacco. - Ebola Screening: : Patient negative for fever greater than or equal to 101.5 degrees Fahrenheit, and additional compatible Ebola Virus Disease symptoms Patient denies exposure to infectious person Patient denies travel to an Ebola-affected area in the 21 days before illness onset No symptoms or risks identified at this time. Screenin:15 Abuse screen: Denies threats or abuse. Nutritional screening: No deficits noted. em Tuberculosis screening: No symptoms or risk factors identified. Fall Risk None identified. Assessment: 19:25 General: Appears in no apparent distress. uncomfortable, Behavior is calm, cooperative, rr5 appropriate for age. Pain: Complains of pain in abdomen and penile area Pain does not radiate. Pain currently is 10 out of 10 on a pain scale. Quality of pain is described as burning, aching, Pain began gradually, Is intermittent. Neuro: Level of Consciousness is awake, alert, obeys commands, Oriented to person, place, time, situation, Appropriate for age history cerebral palsy . Speech is slurred, stuttering with cerebral palsy . Cardiovascular: Capillary refill < 3 seconds Patient's skin is warm and dry. Respiratory: Airway is patent Respiratory effort is even, unlabored, Respiratory pattern is regular, symmetrical. : Swelling noted on penis on scrotum redness,hematoma around the penis and scrotum noted. EENT: No signs and/or symptoms were reported regarding the EENT system. Derm: Skin is intact, Skin temperature is warm. Musculoskeletal: stiffness on extremities. ambulation via wheelchair. 19:25 GI: pain for pump at left lower quadrant area. rr5 19:46 Reassessment: bladder scan pre is 97ml. rr5 20:40 Reassessment: Patient appears in no apparent distress at this time. Patient and/or rr5 family updated on plan of care and expected duration. Pain level reassessed. sent for ct scan Patient states symptoms have improved. 21:40 Reassessment: Patient appears in no apparent distress at this time. Patient and/or rr5 family updated on plan of care and expected duration. Pain level reassessed. awaiting for review Patient states feeling better. Patient states symptoms have improved. 22:00 Reassessment: Patient appears in no apparent distress at this time. Patient and/or rr5 family updated on plan of care and expected duration. Pain level reassessed. post void 50ml Patient states symptoms have improved. 22:30 Reassessment: Patient appears in no apparent distress at this time. Patient and/or rr5 family updated on plan of care and expected duration. Pain level reassessed. Patient states feeling better. Patient states symptoms have improved. 23:30 Reassessment: Patient appears in no apparent distress at this time. Patient and/or rr5 family updated on plan of care and expected duration. Pain level reassessed. awaiting for EMS transport Patient states feeling better. Patient states symptoms have improved. 08/30 00:20 Reassessment: Patient appears in no apparent distress at this time. handover to clute rr5 EMS discharge instruction and prescription given to ptaient. Vital Signs: 08/29 19:19 BP 161 / 93; Pulse 86; Resp 18; Temp 98.0; Pulse Ox 97% on R/A; Weight 127.01 kg; em Height 5 ft. 9 in. (175.26 cm); Pain 10/10; 20:30 BP 132 / 94; Pulse 78; Resp 18; Pulse Ox 99% ; rr5 21:40 BP 129 / 96; Pulse 84; Resp 19; Pulse Ox 99% ; rr5 22:30 BP 133 / 70; Pulse 80; Resp 17; Pulse Ox 99% ; rr5 23:30 BP 121 / 76; Pulse 76; Resp 18; Pulse Ox 98% ; rr5 08/30 00:00 BP 125 / 70; Pulse 75; Resp 18; Pulse Ox 98% ; rr5 08/29 19:19 Body Mass Index 41.35 (127.01 kg, 175.26 cm) em ED Course: 08/29 19:01 Patient arrived in ED. em 19:02 Simon Phillips NP is PHCP. pm1 19:02 Ladarius Gillette MD is Attending Physician. pm1 19:12 Zachariah Salcedo LVN is Primary Nurse. em 19:19 Arm band placed on. em 19:19 Patient has correct armband on for positive identification. Placed in gown. Bed in low em position. Call light in reach. Side rails up X2. Pulse ox on. NIBP on. 19:21 Triage completed. iw 19:21 PHCP role handed off by Simon Phillips NP cp 19:21 Ladarius Rubin PA is PHCP. cp 20:00 Inserted saline lock: 20 gauge in right forearm, using aseptic technique. Blood rr5 collected. 20:48 Radiology exam delayed due to pt having CT exam. sg3 21:26 US Scrotum Testicles In Process Unspecified. EDMS 21:33 CT Abd/Pelvis - W/Contrast: no oral contrast In Process Unspecified. EDMS 22:13 Primary Nurse role handed off by Zachariah Salcedo LVN ed1 22:14 Chalino Ashton, EDILIA is Primary Nurse. rr5 08/30 00:20 No provider procedures requiring assistance completed. IV discontinued, intact, rr5 bleeding controlled, No redness/swelling at site. Pressure dressing applied. Administered Medications: 08/29 20:10 Drug: Zofran 4 mg Route: IVP; Site: right forearm; rr5 08/30 00:00 Follow up: Response: No adverse reaction rr5 08/29 20:11 Drug: NS 0.9% 500 ml Route: IV; Rate: bolus; Site: right forearm; rr5 21:30 Follow up: Response: No adverse reaction; IV Status: Completed infusion; IV Intake: rr5 500ml 20:12 Drug: morphine 4 mg Route: IVP; Site: right forearm; rr5 08/30 00:00 Follow up: Response: No adverse reaction rr5 08/29 22:30 Drug: Hydrocodone-Acetaminophen (7.5 mg-325 mg) 1 tabs Route: PO; rr5 08/30 00:00 Follow up: Response: No adverse reaction rr5 08/29 22:32 Drug: Zithromax 1 grams Route: PO; rr5 08/30 00:00 Follow up: Response: No adverse reaction rr5 08/29 22:33 Drug: TORadol 30 mg Route: IVP; Site: right forearm; rr5 08/30 00:00 Follow up: Response: No adverse reaction rr5 08/29 22:35 Drug: Rocephin - (cefTRIAXone) 1 grams Route: IVPB; Infused Over: 30 mins; Site: right rr5 forearm; 23:05 Follow up: IV Status: Completed infusion rr5 Intake: 21:30 IV: 500ml; Total: 500ml. rr5 Output: 22:00 Urine: 200ml (Voided); Total: 200ml. rr5 Outcome: 22:48 Discharge ordered by MD. gonsalez 08/30 00:20 Discharged to home via ambulance. rr5 Condition: stable Discharge instructions given to patient, Instructed on discharge instructions, follow up and referral plans. medication usage, Demonstrated understanding of instructions, follow-up care, medications, Prescriptions given X 2. 00:23 Patient left the ED. rr5 Signatures: Dispatcher [employer] EDZachairah Munoz, SYLWIA HENRIQUEZN Nidia Fallon RN RN iw Riggs, Erika, LVN LVN ed1 Ladarius Rubin PA PA cp Simon Phillips, CONFORMAL PAD FORMER CONFORMAL PAD FORMER pm1 Misty Blandon sg3 Chalino Ashton, RN RN rr5
[2018-08-30 00:41] VITALS: TEMP 98
[2018-08-30 00:46] VITALS: O2SAT 98
[2018-08-30 00:47] VITALS: BP 125/70
== END 2018-08-30 00:23 | disposition home or self-care (01) ==
LOC: ER 18:56
DX: N43.41 Spermatocele of epididymis, single (principal); R10.9 Unspecified abdominal pain; R10.2 Pelvic and perineal pain; K42.9 Umbilical hernia without obstruction or gangrene; K40.90 Unilateral inguinal hernia, without obstruction or gangrene, not specified as recurrent
CPT/HCPCS: 36415; 74177; 76870; 80048; 80076; 83690; 85025; 96361; 96365; 96375; 99284; J0696; J2405; Q9967; 81003; 81015

== ENCOUNTER 2018-11-17 15:22 | Emergency (ER) | payer OTHER ==
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
[2018-11-17] MEDS ORDERED: CYCLOBENZAPRINE 10 MG TAB ONE (17:45)
[2018-11-17 18:44] VITALS: TEMP 97.9; O2SAT 96
[2018-11-17 18:45] VITALS: BP 127/78
== END 2018-11-17 18:31 | disposition home or self-care (01) ==
LOC: ER 15:22
DX: S80.219A Abrasion, unspecified knee, initial encounter (principal); W05.2XXA Fall from non-moving motorized mobility scooter, initial encounter; G80.9 Cerebral palsy, unspecified; E11.9 Type 2 diabetes mellitus without complications; E78.5 Hyperlipidemia, unspecified; F32.9 Major depressive disorder, single episode, unspecified; Z87.820 Personal history of traumatic brain injury
CPT/HCPCS: 70450; 72125; 99285

== ENCOUNTER 2019-03-06 20:59 | Emergency (ER) | payer OTHER ==
--- OUTSIDE RECORDS SUMMARY | 2019-03-06 21:02 | XMS REPORT | Continuity of Care Document ---
:1970 Author Organization [employer] Care Team Providers Name Role Phone [employer] Unavailable Unavailable Problems Problem Status Onset Classification Date Comments Source Date Reported LT HAND Active [facility] 017 [place] UNK Active [facility] 017 [place] DX: R25.2=CRAMP AND Active [facility] 017 [place] R25.2 - CRAMP AND Active [facility] S62.521A - 017 [place] DISP CEREBRAL PALSY Active [facility] 016 CEREBRAL PALSEY Active [facility] 016 C80.8 Active [facility] 016 Cerebral palsy1 Active Problem 01/21/[address] [facility] from [facility], on 01/21/15. H [facility] [place] Indigestion3 Active Problem 01/21/[address] [facility] from [facility], on 01/21/15. H [facility] [place] Laceration of Active Problem 01/21/2017 Data eyelid4 [address] [facility] from [facility], on 01/21/15. H [facility] [place] Gastroesophageal Active Problem 01/21/2017 Data reflux disease[address] [facility] from [facility], on 01/21/15. H [facility] [place] MANUAL WHEELCHAIR Active [facility] EVAL 001 WHEELCHAIR FINAL Active [facility] FITTING 001 Anxiety Resolved Problem 01/21/2017 [facility] [place] Cerebral palsy Resolved Problem 01/21/2017 [facility] [place] CVA (Confirmed) Resolved Problem 01/21/2017 [facility] [place] Carpal tunnel Active Problem 01/21/2017 syndrome [facility] [place] Expressive language Resolved Problem 01/21/2017 disorder [facility] [place] Nasal fracture Resolved Problem 01/21/2017 [facility] [place] Hypertension Resolved Problem 01/21/2017 [facility] [place] Depression Resolved Problem 01/21/2017 [facility] [place] TBI (Confirmed) Resolved Problem 01/21/2017 [facility] [place] Ulcer Resolved Problem 01/21/2017 [facility] [place] CRAMP AND SPASM Active [facility] Medications Medication Details Route Status Patient Ordering Order Source Instructions Provider Date Fentanyl 25 microgram, Inactive 0.5 mL, Route: 2016 [place] IV, Drug form: INJ, Q10Min, Dosing Weight 90, kg, PRN Pain Score 6-10, Start date: 12/04/16 12:38:00 CDT, Duration: 30 day, Stop date: 01/03/17 12:37:00 CDTNotes: (Same as: Sublimaze) Preservative free. Naloxone 0.4 mg, 1 mL, Inactive Route: IVP, Drug 2016 [place] form: INJ, Q2MIN, Dosing Weight 90, kg, PRN Narcotic Reversal, Start date: 12/04/16 12:38:00 CDT, Duration: 8 doses or times, Stop date: Limited # of timesNotes: Same as Narcan Flumazenil 0.2 mg, 2 mL, Inactive Route: IVP, Drug 2016 [place] form: INJ, PRN, Dosing Weight 90, kg, PRN Benzodiazepine Reversal, Initial dose, Start date: 12/04/16 12:38:00 CDT, Duration: 30 day, Stop date: 01/03/17 12:37:00 CDTNotes: (Same as: Romazicon) Hydromorphone 0.5 mg, 0.5 mL, Inactive Route: IVP, Drug 2016 [place] form: INJ, Q5Min, Dosing Weight 90, kg, PRN Pain Score 7-10, Start date: 12/04/16 12:38:00 CDT, Duration: 4 doses or times, Stop date: Limited # of timesNotes: Same as: Dilaudid Morphine 4 mg, 1 mL, Inactive Route: IVP, Drug 2016 [place] form: INJ, Q5Min, Dosing Weight 90, kg, PRN Pain Score 7-10, Start date: 12/04/16 12:38:00 CDT, Duration: 3 doses or times, Stop date: Limited # of timesNotes: (Same as:MORPhine Sulfate) Ondansetron 4 mg, 2 mL, Inactive Route: IVP, Drug 2016 [place] form: INJ, ONCE, Dosing Weight 90, kg, PRN Nausea & Vomiting, Start date: 12/04/16 12:38:00 CDTNotes: (Same as: Zofran) MEDICATION WASTE Product Size: 4 mg Product Wasted: ___ mg Oxycodone 10 mg, 2 tab, Inactive Route: PO, Drug 2016 [place] form: TAB, Q4H, Dosing Weight 90, kg, PRN Pain Score 7-10, Start date: 12/04/16 12:38:00 CDT, Duration: 30 day, Stop date: 01/03/17 12:37:00 CDTNotes: (Same as: Roxicodone) ondansetron Route: IV, Drug Inactive (ANES) form: INJ, ONCE, 2016 [place] Stop date: 12/04/16 12:12:00 CDT acetaminophen 650 mg, PO, Q4H, Active 325 mg oral PRN Pain 2016 [place] tablet 1-3/Temp > 100.4 F, 0 Refill(s) tramadol 50 mg, PO, Q6H, Active hydrochloride PRN Pain Score 2016 [place] 50 MG Oral 1-3, 0 Refill(s) Tablet Tramadol 50 mg, 1 tab, Inactive Route: PO, Drug 2016 [place] form: TAB, Q6H, Dosing Weight 90, kg, PRN Pain Score 1-3, Start date: 12/04/16 11:44:00 CDT, Duration: 30 day, Stop date: 01/03/17 11:43:00 CDTNotes: Not to exceed 400mg/day. (Same As: Ultram) Acetaminophen 650 mg, 2 tab, Inactive Route: PO, Drug 2016 [place] form: TAB, Q4H, Dosing Weight 90, kg, PRN Pain 1-3/Temp > 100.4 F, Start date: 12/04/16 11:44:00 CDT, Duration: 30 day, Stop date: 01/03/17 11:43:00 CDTNotes: Do not exceed 4 gm/day. (Same as: Tylenol) dexamethasone Route: IV, Drug Inactive (ANES) form: INJ, ONCE, 2016 [place] Stop date: 12/04/16 11:32:00 CDT ceFAZolin Route: IV, Drug Inactive MH (ANES) form: INJ, ONCE, 2016 [place] Stop date: 12/04/16 11:27:00 CDT fentaNYL (ANES) Route: IV, Drug Inactive form: INJ, ONCE, 2016 [place] Stop date: 12/04/16 11:27:00 CDT propofol (ANES) Route: IV, Drug Inactive form: INJ, ONCE, 2016 [place] Stop date: 12/04/16 11:27:00 CDT midazolam Route: IV, Drug Inactive MH (ANES) form: SOLN, 2016 [place] ONCE, Stop date: 12/04/16 11:27:00 CDT LR 1000 mL INJ Route: IV, Total Inactive (ANES) Volume: 1,000, 2016 [place] Start date: 12/04/16 10:00:00 CDT, Stop date: 12/04/16 11:00:00 CDT ceFAZolin + 2 gm, Route: Inactive sodium chloride IVPB, ONCALL, 2016 [place] 0.9% INJ 100 mL Start date: 12/04/16 8:00:00 CDT, Duration: 1 doses or timesNotes: (Same As: Abdulaziz Mendes) MEDICATION WASTE Product Size: 1000 mg Product Wasted: ___ mg Calcium 1,000 mL, Rate: Inactive Chloride 0.0014 25 ml/hr, Infuse 2016 [place] MEQ/ML / over: 40 hr, Potassium Route: IV, Chloride 0.004 Dosing Weight 90 MEQ/ML / Sodium kg, Total Chloride 0.103 Volume: 1,000, MEQ/ML / Sodium Start date: Lactate 0.028 12/04/16 7:33:00 MEQ/ML CDT, Duration: Injectable 30 day, Stop Solution date: 01/03/17 7:32:00 CDT rifaMPIN 300 mg 600 mg=2 cap, Active oral capsule PO, BID, 0 2016 [place] Refill(s) diazepam 5 mg 5 mg=1 tab, PO, Inactive oral tablet QID, 0 Refill(s) 2016 [place] pregabalin 75 75 mg=1 cap, PO, Active mg oral capsule TID, 0 Refill(s) 2016 [place] acetaminophen-c 1 tab, PO, TID, No Longer odeine #3 0 Refill(s) Active 2016 [place] Bupropion 100, PO, BID, .5 Active 11/27[facility] tab bid, 0 2016 [place] Refill(s) sertraline 100 200 mg=2 tab, Active mg oral tablet PO, Daily, 0 2016 [place] Refill(s) Allergies, Adverse Reactions, Alerts Substance Category Reaction Severity Reaction Status Date Comments Source type Reported Abilify Assertion Drug Active [facility] allergy [place] ARIPiprazol Assertion Drug Active Data [facility] e<sup>1</[place] allergy migrated [place] p> from [facility] on 12/22/14. Originally documented as ABILIFY. breathing problems, numbness Dilaudid Assertion Drug Active [facility] allergy [place] HYDROmorpho Assertion Drug Active Data [facility] ne<sup>2</s allergy migrated [place] up> from [facility] [facility] on 12/22/14. Originally documented as DILAUDID. has problems sleeping Immunizations No Data Provided for This Section Results No Data Provided for This Section Pathology Reports No Data Provided for This Section Diagnostic Reports No Data Provided for This Section Consultation Notes No Data Provided for This Section Discharge Summaries No Data Provided for This Section History and Physicals No Data Provided for This Section Vital Signs Vital Sign Value Date Comments Source Respitory Rate 15 12/04/2016 [facility] Systolic (mm Hg) 131 12/04/2016 [facility] Diastolic (mm Hg) 77 12/04/2016 [facility] Respitory Rate 16 12/04/2016 [facility] Systolic (mm Hg) 157 12/04/2016 [facility] Diastolic (mm Hg) 76 12/04/2016 [facility] Respitory Rate 15 12/04/2016 [facility] Systolic (mm Hg) 150 12/04/2016 [facility] Diastolic (mm Hg) 106 12/04/2016 [facility] Heart Rate 72 11/27/2016 [facility] BMI Calculated 30.17 11/27/2016 [facility] Weight 90 11/27/2016 [facility] Height 172.72 cm 11/27/2016 [place] Systolic (mm Hg) 133 01/23/2016 [facility] Diastolic (mm Hg) 88 01/23/2016 [facility] Heart Rate 89 01/23/2016 [facility] Height 175.26 cm 10/16/2015 [facility] Heart Rate 68 10/16/2015 [facility] Systolic (mm Hg) 136 10/16/2015 [facility] Diastolic (mm Hg) 96 10/16/2015 [facility] Encounters Location Location Encounter Encounter Reason Attending ADM DC Status Source Details Type Number For Provider Date Date Visit [facility] Tots [id number] [place] 09/18 10/18 [facility] OP [id number] [place] 10/16 11/14 [facility] Tots [id number] Laxmi 10/30 11/29 [facility] [place] [facility] Tots [id number] Laxmi 11/29 12/29 [facility] [place] [facility] Tots [id number] Laxmi 12/27 01/26 [facility] [place] [facility] OP [id number] Laxmi 01/22 02/21 [facility] Tots [id number] Rick 03/07 04/06 [facility] Sreedhar Emmanuel [facility] Tots [id number] Rick 04/16 05/16 [facility] Sreed[place] [facility] Tots [id number] Rick 05/16 06/15 [facility] [place] /2015 [facility] Outpatient [id number] Jc Luis 10/28 10/29 [facility] /2016 [facility] Day Surgery [id number] Jc Luis 12/04 12/04 [facility] /2016 [facility] OP Therapy [id number] Jc Luis 12/20 01/19 [facility] [place] Procedures Procedure Code Date Perfomer Comments Source Appendectomy [id number] [facility] [place] Operation<sup>1</s [id number] placed [facility] up> Baclofen pump [place] Appendectomy [id number] [facility] Operation<sup>1</s [id number] placed [facility] up> Baclofen pump Assessment and Plan No Data Provided for This Section Plan of Care No Data Provided for This Section Social History Social History Date Source Social History TypeResponse 12/04/2016 [facility] Smoking Status Never smoker; Previous treatment: None; Ready to change: No; Concerns about tobacco use in household: No; Exposure to Tobacco Smoke None; Cigarette Smoking Last 365 Days No; Reg Smoking Cessation Counseling No Social History TypeResponse 12/04/2016 [facility] Smoking Status Never smoker; Previous treatment: None; Ready to change: No; Concerns about tobacco use in household: No; Exposure to Tobacco Smoke None; Cigarette Smoking Last 365 Days No; Reg Smoking Cessation Counseling No No data available for this 10/29/2016 [facility] section No data available for this 06/15/2016 [facility] section Family History No Data Provided for This Section Advance Directives No Data Provided for This Section Functional Status No Data Provided for This Section
[2019-03-06 21:58] LABS: Barbiturates NEGATIVE (NEGATIVE); Benzodiazepines NEGATIVE (NEGATIVE); Cocaine NEGATIVE (NEGATIVE); METHAMPHETAM NEGATIVE (NEGATIVE); Methadone NEGATIVE (NEGATIVE); Opiates NEGATIVE (NEGATIVE); Phencyclidine NEGATIVE (NEGATIVE); THC Cannibis NEGATIVE (NEGATIVE)
[2019-03-06 22:01] LABS: Absolute Lymphocytes (CBC) 1.4 K/uL (0.7-4.9); Basophils % 1.3 % (0-1.3); Eosinophils % 4.3 % (0-4.4); Hematocrit 40.7 % (39.6-49.0); Lymphocytes % 30.4 % (15.3-44.8); MPV 7.9 fL (7.6-11.3); Monocytes % 9.8 % (3.3-12.3); RBC Red Blood Cell Count 4.91 M/uL (4.33-5.43)
[2019-03-06 22:08] LABS: Urine Blood NEGATIVE (NEG); Urine Glucose NEGATIVE (NEG); Urine Protein NEGATIVE (NEG); Urine pH 5.5 (5.0-7.0)
[2019-03-06 22:17] LABS: Protime INR 0.93
[2019-03-06 22:29] LABS: ALT/SGPT 20 U/L (12-78); AST/SGOT 9 U/L (15-37); Albumin 3.6 g/dL (3.4-5.0); Alkaline Phosphatase 91 U/L (45-117); BUN Blood Urea Nitrogen 13 mg/dL (7-18); Bicarbonate 29 mmol/L (21-32); Bilirubin Direct 0.1 mg/dL (0-0.2); Bilirubin Total 0.2 mg/dL (0.2-1.0); Glucose Level 79 mg/dL (74-106); Potassium 4.1 mmol/L (3.5-5.1); Protein, Total 6.8 g/dL (6.4-8.2); Sodium Level 140 mmol/L (136-145)
--- NOTE | 2019-03-07 02:02 | ER ---
Nurse's Notes [facility] Name: Dante Staton Age: 48 yrs Sex: Male : 1970 Arrival Date: 03/06/2019 Time: 21:01 Bed 18 Private MD: Diagnosis: Major depressive disorder, recurrent Presentation: 03/06 23:04 Presenting complaint: Patient states: Patient brought in by EMS. Patient states they eb1 want a mental health consult. Patient states they have no suicidal ideation, but did have suicidal ideation a few weeks ago. Transition of care: patient was not received from another setting of care. Onset of symptoms is unknown. Risk Assessment: Do you want to hurt yourself or someone else? Patient reports no desire to harm self or others. Initial Sepsis Screen: Does the patient meet any 2 criteria? No. Patient's initial sepsis screen is negative. Does the patient have a suspected source of infection? No. Patient's initial sepsis screen is negative. Care prior to arrival: None. 23:04 Method Of Arrival: EMS eb1 23:04 Acuity: ROMAIN 3 eb1 Triage Assessment: 23:29 General: Appears in no apparent distress. uncomfortable, slender, unkempt, well eb1 nourished. Pain: Complains of pain in back Quality of pain is described as aching, Aggravated by increased activity. EENT: No deficits noted. No signs and/or symptoms were reported regarding the EENT system. Neuro: No deficits noted. Cardiovascular: No deficits noted. Respiratory: No deficits noted. GI: No deficits noted. No signs and/or symptoms were reported involving the gastrointestinal system. : No deficits noted. No signs and/or symptoms were reported regarding the genitourinary system. Derm: No deficits noted. No signs and/or symptoms reported regarding the dermatologic system. Musculoskeletal: No deficits noted. No signs and/or symptoms reported regarding the musculoskeletal system. Historical: - PMHx: 23:07 Depression; CP; eb1 - Immunization history:: Adult Immunizations up to date. - Social history:: Smoking status: Patient/guardian denies using tobacco. - Ebola Screening: : Patient negative for fever greater than or equal to 101.5 degrees Fahrenheit, and additional compatible Ebola Virus Disease symptoms Patient denies exposure to infectious person Patient denies travel to an Ebola-affected area in the 21 days before illness onset. Screenin:28 Abuse screen: Denies threats or abuse. Denies injuries from another. Nutritional eb1 screening: No deficits noted. Tuberculosis screening: No symptoms or risk factors identified. Fall Risk Gait- Weak (10 pts.). Assessment: 22:23 General: Appears in no apparent distress. comfortable, slender, unkempt, well eb1 nourished, Behavior is calm, cooperative, appropriate for age. Pain: Complains of pain in back Quality of pain is described as aching. Neuro: Level of Consciousness is awake, alert, obeys commands, Oriented to person, place, time, situation, Levi Maker are equal bilaterally Moves all extremities. Full function Gait is unsteady, shuffling, Speech is slurred. Cardiovascular: No deficits noted. Respiratory: No deficits noted. GI: No deficits noted. No signs and/or symptoms were reported involving the gastrointestinal system. : No deficits noted. No signs and/or symptoms were reported regarding the genitourinary system. EENT: No deficits noted. No signs and/or symptoms were reported regarding the EENT system. Derm: No deficits noted. No signs and/or symptoms reported regarding the dermatologic system. Musculoskeletal: No deficits noted. No signs and/or symptoms reported regarding the musculoskeletal system. 22:44 Reassessment: No changes from previously documented assessment. Patient and/or family eb1 updated on plan of care and expected duration. Pain level reassessed. 23:09 Reassessment: No changes from previously documented assessment. Patient and/or family eb1 updated on plan of care and expected duration. Pain level reassessed. 23:34 Reassessment: Given patient a drink. Patient appears relaxed. Complains of chonic back eb1 pain . 03/07 00:45 Reassessment: No changes from previously documented assessment. Patient and/or family eb1 updated on plan of care and expected duration. Pain level reassessed. Vital Signs: 03/06 22:22 BP 130 / 76; Pulse 87; Resp 20; Temp 98.8; Pulse Ox 98% ; Pain 7/10; eb1 23:30 BP 114 / 74; Pulse 74; Resp 16; Temp 98.1; Pulse Ox 96% ; Pain 5/10; eb1 03/07 00:52 BP 116 / 86; Pulse 63; Resp 18; Pulse Ox 100% ; Pain 4/10; eb1 ED Course: 03/06 21:01 Patient arrived in ED. aa1 21:03 Ladarius Rubin PA is PHCP. cp 21:03 Vasu Shannon MD is Attending Physician. cp 22:28 No apparent distress. Resting quietly. Awaiting lab results. eb1 23:06 Triage completed. eb1 23:08 No apparent distress. Resting quietly. eb1 23:08 Arm band placed on left wrist. eb1 23:32 Patient has correct armband on for positive identification. Bed in low position. eb1 23:38 called [facility] spoke with Annetta to get a screener to see pt. mw2 03/07 02:26 No provider procedures requiring assistance completed. IV discontinued, intact, eb1 bleeding controlled, No redness/swelling at site. Pressure dressing applied. Administered Medications: 02:02 Drug: Ativan 1 mg Route: PO; eb1 02:26 Follow up: Response: No adverse reaction eb1 02:36 Follow up: Response: No adverse reaction eb1 Outcome: 02:01 Discharge ordered by . cp 02:35 Discharged to home via wheelchair. eb1 02:35 Condition: improved 02:35 Discharge instructions given to patient, Instructed on discharge instructions, follow up and referral plans. Demonstrated understanding of instructions, follow-up care, medications. 02:36 Patient left the ED. eb1 Signatures: Celsa Antony RN RN aa1 Ladarius Rubin PA PA cp Severino Schmitt mw2 Viviana Kaur RN RN eb1
--- NOTE | 2019-03-07 02:03 | EDPHYS ---
Physician Documentation [facility] Name: Dante Staton Age: 48 yrs Sex: Male : 1970 Arrival Date: 03/06/2019 Time: 21:01 Bed 18 Private MD: ED Physician Vasu Shannon HPI: 03/06 21:15 This 48 yrs old Male presents to ER via EMS with complaints of depression. cp 21:15 The patient presents to the emergency department with depression, multiple issues. cp 21:15 Onset: The symptoms/episode began/occurred gradually. Past psychiatric history: Prior cp diagnosis: depression, it is unknown whether or not the patient has had a prior suicide gesture. Associated signs and symptoms: Pertinent negatives: homicidal ideation, suicide ideation. Patient brought to ED via EMS for mental health evaluation. Patient admits depression but denies any current suicidal or homicidal ideations. Historical: - PMHx: 23:07 Depression; CP; eb1 - Immunization history:: Adult Immunizations up to date. - Social history:: Smoking status: Patient/guardian denies using tobacco. - Ebola Screening: : Patient negative for fever greater than or equal to 101.5 degrees Fahrenheit, and additional compatible Ebola Virus Disease symptoms Patient denies exposure to infectious person Patient denies travel to an Ebola-affected area in the 21 days before illness onset. ROS: 21:25 Psych: Positive for anxiety, depression, Negative for auditory hallucinations, visual cp hallucinations, homicidal ideation, suicide gesture, suicidal ideation. 21:25 Eyes: Negative for injury, pain, redness, and discharge. cp 21:25 Constitutional: Negative for body aches, chills, fever, poor PO intake. 21:25 ENT: Negative for drainage from ear(s), ear pain, sore throat, difficulty swallowing, difficulty handling secretions. 21:25 Cardiovascular: Negative for chest pain, edema, palpitations. 21:25 Respiratory: Negative for cough, shortness of breath, wheezing. 21:25 Abdomen/GI: Negative for abdominal pain, nausea, vomiting, and diarrhea. 21:25 Skin: Negative for cellulitis, rash. 21:25 Neuro: Negative for altered mental status, dizziness, headache, weakness. 21:25 All other systems are negative. Exam: 21:30 Constitutional: The patient appears in no acute distress, alert, awake, cp non-diaphoretic, non-toxic, well developed, well nourished. 21:30 Head/Face: Normocephalic, atraumatic. cp 21:30 Eyes: Periorbital structures: appear normal, Pupils: equal, round, and reactive to light and accomodation, Extraocular movements: intact throughout, Conjunctiva: normal, no exudate, no injection, Lids and lashes: appear normal, bilaterally. 21:30 ENT: External ear(s): are unremarkable, Nose: is normal, Mouth: Lips: moist, Oral mucosa: moist, Posterior pharynx: Airway: no evidence of obstruction, patent. 21:30 Chest/axilla: Inspection: normal, Palpation: is normal, no crepitus, no tenderness. 21:30 Cardiovascular: Rate: normal, Rhythm: regular. 21:30 Respiratory: the patient does not display signs of respiratory distress, Respirations: normal, no use of accessory muscles, no retractions, no splinting, no tachypnea, Breath sounds: are clear throughout, no decreased breath sounds, no stridor, no wheezing. 21:30 Abdomen/GI: Inspection: abdomen appears normal, Palpation: abdomen is soft and non-tender, in all quadrants. 21:30 Back: pain, is absent. 21:30 Musculoskeletal/extremity: Exam is negative for injury. 21:30 Skin: no rash present. 21:30 Neuro: Orientation: to person, place \T\ time. Mentation: is normal, Motor: moves all fours. 22:00 ECG was reviewed by the Attending Physician. cp Vital Signs: 22:22 BP 130 / 76; Pulse 87; Resp 20; Temp 98.8; Pulse Ox 98% ; Pain 7/10; eb1 23:30 BP 114 / 74; Pulse 74; Resp 16; Temp 98.1; Pulse Ox 96% ; Pain 5/10; eb1 03/07 00:52 BP 116 / 86; Pulse 63; Resp 18; Pulse Ox 100% ; Pain 4/10; eb1 MDM: 03/06 21:06 Patient medically screened. cp 22:00 Differential diagnosis: acute psychotic break, depression, suicidal ideation, homicidal cp ideation. 03/07 00:00 Data reviewed: vital signs, nurses notes, lab test result(s), EKG. cp 00:00 Test interpretation: by ED physician or midlevel provider: ECG. cp 02:00 Counseling: I had a detailed discussion with the patient and/or guardian regarding: the cp historical points, exam findings, and any diagnostic results supporting the discharge/admit diagnosis, lab results, the need for outpatient follow up, for definitive care, a psychiatrist, to return to the emergency department if symptoms worsen or persist or if there are any questions or concerns that arise at home. 02:00 ED course: VSS. Patient evaluated by [facility] and stable for discharge with cp outpatient f/u recommended. Will discharge to home for continued monitoring. 03/06 21:17 Order name: Acetaminophen; Complete Time: 23:57 cp 03/06 21:17 Order name: Basic Metabolic Panel; Complete Time: 23:57 cp 03/06 23:58 Interpretation: Normal except: GFR 82; CA 8.4. cp 03/06 21:17 Order name: CBC with Diff; Complete Time: 23:57 cp 03/06 23:58 Interpretation: Normal except: HGB 13.1; MCH 26.8. cp 03/06 21:17 Order name: ETOH Level; Complete Time: 23:57 cp 03/06 21:17 Order name: Hepatic Function; Complete Time: 23:57 cp 03/06 21:17 Order name: PT-INR; Complete Time: 23:57 cp 03/06 21:17 Order name: Ptt, Activated; Complete Time: 23:57 cp 03/06 21:17 Order name: Salicylate; Complete Time: 23:57 cp 03/06 21:17 Order name: Urine Drug Screen; Complete Time: 23:57 cp 03/06 21:17 Order name: EKG; Complete Time: 21:19 cp 03/06 21:17 Order name: EKG - Nurse/Tech; Complete Time: 21:52 cp 03/06 21:17 Order name: IV Saline Lock; Complete Time: 21:35 cp 03/06 21:39 Order name: Urine Dipstick--Ancillary (enter results) mw2 03/06 21:17 Order name: Labs collected and sent; Complete Time: 21:52 cp 03/06 21:17 Order name: Urine Dipstick-Ancillary (obtain specimen); Complete Time: 21:36 cp EC/13 22:00 Rate is 65 beats/min. Rhythm is regular. LA interval is normal. QRS interval is normal. cp QT interval is normal. T waves are Inverted in lead III. Interpreted by me. Reviewed by me. Administered Medications: 03/07 02:02 Drug: Ativan 1 mg Route: PO; eb1 02:26 Follow up: Response: No adverse reaction eb1 02:36 Follow up: Response: No adverse reaction eb1 Disposition: 03/07/19 02:01 Discharged to Home. Impression: Major depressive disorder, recurrent. - Condition is Stable. - Discharge Instructions: Generalized Anxiety Disorder, Major Depressive Disorder. - Medication Reconciliation Form, Thank You Letter, Antibiotic Education, Prescription Opioid Use form. - Follow up: Private Physician; When: [facility]; Reason: Recheck today's complaints. - Problem is new. - Symptoms have improved. Addendum: 03/09/2019 09:42 Co-signature as Attending Physician, Vasu Shannon MD. g s Signatures: Dispatcher [employer] EDMS Ladarius Rubin PA PA cp Starr, Gregory, MD MD Viviana Kaur RN RN eb1 Corrections: (The following items were deleted from the chart) 03/06 23:58 23:58 Normal except: GFR 82. cp cp 03/07 02:36 02:01 03/07/2019 02:01 Discharged to Home. Impression: Major depressive disorder, eb1 recurrent. Condition is Stable. Forms are Medication Reconciliation Form, Thank You Letter, Antibiotic Education, Prescription Opioid Use. Follow up: Private Physician; When: [facility]; Reason: Recheck today's complaints. Problem is new. Symptoms have improved. cp
[2019-03-07] MEDS ORDERED: LORAZEPAM 1 MG TABLET ONE (02:13)
[2019-03-07 02:43] VITALS: TEMP 98.1
[2019-03-07 02:44] VITALS: BP 116/86; O2SAT 100
--- NOTE | 2019-03-07 05:58 | EKG ---
Test Date: 2019-03-06 Test Time: 21:50:59 Dispersion Mixer: ROSANNA MEASUREMENT RESULTS: Intervals: Rate: 65 [place]: 140 QRSD: 82 QT: 394 QTc: 409 [place]: P: 17 [place]: 140 QRS: 30 T: 15 INTERPRETIVE STATEMENTS: Normal sinus rhythm Increased R/S ratio in V1, consider early transition or posterior infarct Abnormal ECG Compared to ECG 12/04/2017 20:18:55 Myocardial infarct finding now present Electronically Signed On 03-07-19 05:57:45 CDT by Milton Treadwell
== END 2019-03-07 02:36 | disposition home or self-care (01) ==
LOC: ER 20:59
DX: F33.9 Major depressive disorder, recurrent, unspecified (principal)
CPT/HCPCS: 36415; 80048; 80076; 80307; 80320; 80329; 81003; 85025; 85610; 85730; 93005; 99283

== ENCOUNTER 2019-05-19 20:13 | Emergency (ER) | payer OTHER ==
[2019-05-19] MEDS ORDERED: HYDROCODONE/APAP 10/325 TAB ONE (21:11)
--- NOTE | 2019-05-19 21:18 | ER ---
Nurse's Notes [facility] Name: Dante Staton Age: 48 yrs Sex: Male : 1970 Arrival Date: 05/19/2019 Time: 20:16 Bed 4 Private MD: Diagnosis: Fall due to bumping against object;Contusion of knee;Abrasion, right knee;Strain of muscle, fascia and tendon at neck level;Superficial injury of head Presentation: 05/19 20:11 Presenting complaint: EMS states: that pt was in the shower and fell. Has 2 small cuts fc (1 - right knee, 1 - right chaudhari) with no bleeding. Pt states that he did not hit his head but is having neck pain. Denies any LOC. Pt [facility] at [facility]. Transition of care: patient was not received from another setting of care. Onset of symptoms was May 19, 2019 at 19:40. Risk Assessment: Do you want to hurt yourself or someone else? Patient reports no desire to harm self or others. Initial Sepsis Screen: Does the patient meet any 2 criteria? HR > 90 bpm. Yes Does the patient have a suspected source of infection? No. Patient's initial sepsis screen is negative. Care prior to arrival: Bleeding of injury controlled. 20:11 Method Of Arrival: EMS: [facility] 20:11 Acuity: ROMAIN 3 fc Historical: - Allergies: 20:26 Dilaudid; fc - Home Meds: 20:26 atorvastatin 20 mg Oral tab 1 tab once daily [Active]; bupropion HCl 100 mg Oral TbER fc 0.5 tab 2 times per day [Active]; gabapentin oral oral [Active]; Boyd 5-325 mg Oral tab [Active]; omeprazole 20 mg Oral cpDR 1 cap once daily [Active]; Zoloft 100 mg Oral tab 2 tabs once daily [Active]; trazodone 100 mg Oral tab 1 tab at bedtime [Active]; - PMHx: 20:26 CP; Depression; Chronic pain; High Cholesterol; GERD; fc - PSHx: 20:26 Appendectomy; Pain Pump; fc - Immunization history:: Last tetanus immunization: unknown. - Social history:: Smoking status: Patient/guardian denies using tobacco, Patient/guardian denies using alcohol, street drugs. - Ebola Screening: : Patient negative for fever greater than or equal to 101.5 degrees Fahrenheit, and additional compatible Ebola Virus Disease symptoms Patient denies exposure to infectious person Patient denies travel to an Ebola-affected area in the 21 days before illness onset. - Family history:: not pertinent. Screenin:11 Abuse screen: Denies threats or abuse. Nutritional screening: No deficits noted. fc Tuberculosis screening: No symptoms or risk factors identified. Fall Risk None identified. Assessment: 20:15 General: Appears in no apparent distress. Behavior is cooperative. Pain: Complains of tl1 pain in lateral aspect of right knee and thoracic area and right catholic and forehead and cervical spine Pain currently is 9 out of 10 on a pain scale. Quality of pain is described as aching. Neuro: Level of Consciousness is awake, alert, obeys commands, Oriented to person, place, time, situation, Gait is patient wheelchair bound. Speech is normal, Facial symmetry appears normal. Cardiovascular: Denies chest pain. Respiratory: Airway is patent Trachea midline Respiratory effort is even, unlabored, Respiratory pattern is regular, symmetrical, Breath sounds are clear bilaterally. GI: Abdomen is non-distended, Bowel sounds present X 4 quads. Abd is soft and non tender X 4 quads. : No signs and/or symptoms were reported regarding the genitourinary system. EENT: No signs and/or symptoms were reported regarding the EENT system. Musculoskeletal: Circulation, motion, and sensation intact. Capillary refill < 3 seconds, Range of motion: intact in all extremities, Reports pain in right leg and right knee and lateral aspect of right knee and thoracic area and forehead and cervical spine. Injury Description: Abrasion sustained to right knee is. 05/20 01:02 Reassessment: Patient and/or family updated on plan of care and expected duration. Pain tl1 level reassessed. Patient is alert, oriented x 3, equal unlabored respirations, skin warm/dry/pink. Patient states feeling better. Patient states symptoms have improved. Musculoskeletal: Circulation, motion, and sensation intact. Capillary refill < 3 seconds, Range of motion: intact in all extremities, Reports pain in lateral aspect of right knee and cervical spine. Vital Signs: 05/19 20:11 BP 124 / 82; Pulse 94; Resp 22; Temp 98.1(O); Pulse Ox 95% on R/A; Weight 81.65 kg (R); Height 5 ft. 9 in. (175.26 cm); Pain 9/10; 22:10 BP 128 / 91; Pulse 85; Resp 17; Pulse Ox 95% on R/A; Pain 5/10; tl1 05/20 01:04 BP 132 / 87; Pulse 93; Resp 7; Temp 98.2; Pulse Ox 97% on R/A; Pain 4/10; tl1 05/19 20:11 Body Mass Index 26.58 (81.65 kg, 175.26 cm) ED Course: 05/19 20:11 Arm band placed on Patient placed in an exam room, on a stretcher. 20:11 Patient has correct armband on for positive identification. Bed in low position. Call fc light in reach. Side rails up X2. patient service associate on. Pulse ox on. NIBP on. 20:11 No provider procedures requiring assistance completed. fc 20:16 Patient arrived in ED. ds1 20:23 Triage completed. 21:04 Ladarius Gillette MD is Attending Physician. [facility] 21:32 Knee Right 2 View XRAY In Process Unspecified. EDMS 21:34 CT completed. Patient tolerated procedure well. Patient moved to radiology. 2 21:53 CT Traumagram (Head C Spine CAP wo con) In Process Unspecified. EDMS 22:07 Brandy Olmos, EDILIA is Primary Nurse. 1 05/20 01:04 Patient did not have IV access during this emergency room visit. tl1 Administered Medications: 05/19 21:10 Drug: Boyd 10 mg-325 mg 1 tabs Route: PO; tl1 22:13 Follow up: Response: No adverse reaction; Marked relief of symptoms; Pain is decreased tl1 21:42 Drug: Tetanus-Diphtheria Toxoid Adult 0.5 ml {Valve Tester: [employer]. Exp: bb 01/05/2021. Lot #: [id number]. } Route: IM; Site: right deltoid; 22:13 Follow up: Response: No adverse reaction; No change in condition 1 Outcome: 21:17 Discharge ordered by . [facility] 05/20 01:03 Discharged to [place] [id number] Condition: stable Discharge instructions given to patient, Instructed on discharge instructions, follow up and referral plans. Demonstrated understanding of instructions, follow-up care. 01:06 Patient left the ED. tl1 Signatures: Dispatcher [employer] Ladarius Sheehan MD MD cha Chretien, Felicia RN RN Althea Corrigan ds1 Cyndi Lai RN RN bb Lasagna, Tonya, RN RN tl1 Roxy Lombardo [facility]
--- NOTE | 2019-05-19 21:19 | EDPHYS ---
Physician Documentation [facility] Name: Dante Staton Age: 48 yrs Sex: Male : 1970 Arrival Date: 05/19/2019 Time: 20:16 Bed 4 Private MD: ED Physician Ladarius Gillette HPI: 05/19 21:09 This 48 yrs old Male presents to ER via EMS with complaints of fall to knee, marilyn head, neck and low back. 21:09 The patient or guardian complains of decreased range of motion, pain. The symptoms are marilyn located at the cervical spine. Onset: The symptoms/episode began/occurred just prior to arrival. Context: The problem was sustained at home. The patient complains of pain to the forehead and right restorationism. The patient describes the headache as aching. The patient presents with pain that is acute, and decreased range of motion. Historical: - Allergies: 20:26 Dilaudid; fc - Home Meds: 20:26 atorvastatin 20 mg Oral tab 1 tab once daily [Active]; bupropion HCl 100 mg Oral TbER fc 0.5 tab 2 times per day [Active]; gabapentin oral oral [Active]; [place] 5-325 mg Oral tab [Active]; omeprazole 20 mg Oral cpDR 1 cap once daily [Active]; Zoloft 100 mg Oral tab 2 tabs once daily [Active]; trazodone 100 mg Oral tab 1 tab at bedtime [Active]; - PMHx: 20:26 CP; Depression; Chronic pain; High Cholesterol; GERD; fc - PSHx: 20:26 Appendectomy; Pain Pump; fc - Immunization history:: Last tetanus immunization: unknown. - Social history:: Smoking status: Patient/guardian denies using tobacco, Patient/guardian denies using alcohol, street drugs. - Ebola Screening: : Patient negative for fever greater than or equal to 101.5 degrees Fahrenheit, and additional compatible Ebola Virus Disease symptoms Patient denies exposure to infectious person Patient denies travel to an Ebola-affected area in the 21 days before illness onset. - Family history:: not pertinent. ROS: 21:09 Constitutional: Negative for fever, chills, and weight loss, Eyes: Negative for injury, marilyn pain, redness, and discharge, ENT: Negative for injury, pain, and discharge, Cardiovascular: Negative for chest pain, palpitations, and edema, Respiratory: Negative for shortness of breath, cough, wheezing, and pleuritic chest pain, Abdomen/GI: Negative for abdominal pain, nausea, vomiting, diarrhea, and constipation, Back: Negative for injury and pain, : Negative for injury, bleeding, discharge, and swelling, Skin: Negative for injury, rash, and discoloration, Neuro: Negative for headache, weakness, numbness, tingling, and seizure, Psych: Negative for depression, anxiety, suicide ideation, homicidal ideation, and hallucinations, Allergy/Immunology: Negative for hives, rash, and allergies, Endocrine: Negative for neck swelling, polydipsia, polyuria, polyphagia, and marked weight changes, Hematologic/Lymphatic: Negative for swollen nodes, abnormal bleeding, and unusual bruising. 21:09 Neck: Positive for pain with movement, pain at rest. 21:09 Back: Positive for pain at rest, pain with movement, of the thoracic area. 21:09 MS/extremity: Positive for pain, swelling, tenderness, of the lateral aspect of right knee and right knee. Exam: 21:09 Constitutional: This is a well developed, well nourished patient who is awake, alert, marilyn and in no acute distress. Head/Face: Normocephalic, atraumatic. Eyes: Pupils equal round and reactive to light, extra-ocular motions intact. Lids and lashes normal. Conjunctiva and sclera are non-icteric and not injected. Cornea within normal limits. Periorbital areas with no swelling, redness, or edema. ENT: Nares patent. No nasal discharge, no septal abnormalities noted. Tympanic membranes are normal and external auditory canals are clear. Oropharynx with no redness, swelling, or masses, exudates, or evidence of obstruction, uvula midline. Mucous membranes moist. Neck: Trachea midline, no thyromegaly or masses palpated, and no cervical lymphadenopathy. Supple, full range of motion without nuchal rigidity, or vertebral point tenderness. No Meningismus. Chest/axilla: Normal chest wall appearance and motion. Nontender with no deformity. No lesions are appreciated. Cardiovascular: Regular rate and rhythm with a normal S1 and S2. No gallops, murmurs, or rubs. Normal PMI, no JVD. No pulse deficits. Respiratory: Lungs have equal breath sounds bilaterally, clear to auscultation and percussion. No rales, rhonchi or wheezes noted. No increased work of breathing, no retractions or nasal flaring. Abdomen/GI: Soft, non-tender, with normal bowel sounds. No distension or tympany. No guarding or rebound. No evidence of tenderness throughout. Neuro: Awake and alert, GCS 15, oriented to person, place, time, and situation. Cranial nerves II-XII grossly intact. Motor strength 5/5 in all extremities. Sensory grossly intact. Cerebellar exam normal. Normal gait. Psych: Awake, alert, with orientation to person, place and time. Behavior, mood, and affect are within normal limits. 21:09 Back: pain, that is mild, of the thoracic area. 21:09 Musculoskeletal/extremity: ROM: intact in all extremities, full active range of motion, full passive range of motion, Circulation is intact in all extremities. Sensation intact. Compartment Syndrome exam of affected extremity: is normal. DVT Exam: negative Homans' sign noted on exam, no appreciated bluish discoloration, no erythema, no increased warmth, pain, swelling, tenderness. Vital Signs: 20:11 BP 124 / 82; Pulse 94; Resp 22; Temp 98.1(O); Pulse Ox 95% on R/A; Weight 81.65 kg (R); fc Height 5 ft. 9 in. (175.26 cm); Pain 9/10; 22:10 BP 128 / 91; Pulse 85; Resp 17; Pulse Ox 95% on R/A; Pain 5/10; tl1 05/20 01:04 BP 132 / 87; Pulse 93; Resp 7; Temp 98.2; Pulse Ox 97% on R/A; Pain 4/10; tl1 05/19 20:11 Body Mass Index 26.58 (81.65 kg, 175.26 cm) fc MDM: 05/19 21:04 Patient medically screened. [facility] 21:14 Data reviewed: vital signs, nurses notes, lab test result(s), urinalysis, radiologic [facility] studies. 05/19 21:09 Order name: Knee Right 2 View XRAY [facility] 05/19 21:09 Order name: CT Traumagram (Head C Spine CAP wo con) [facility] 05/19 21:09 Order name: Ice pack; Complete Time: 22:13 marilyn Administered Medications: 21:10 Drug: [place] 10 mg-325 mg 1 tabs Route: PO; tl1 22:13 Follow up: Response: No adverse reaction; Marked relief of symptoms; Pain is decreased tl1 21:42 Drug: Tetanus-Diphtheria Toxoid Adult 0.5 ml {Loan Associate: [employer]. Exp: bb 01/05/2021. Lot #: [id number]. } Route: IM; Site: right deltoid; 22:13 Follow up: Response: No adverse reaction; No change in condition tl1 Disposition: 05/19/19 21:17 Discharged to Home. Impression: Fall due to bumping against object, Contusion of knee, Abrasion, right knee, Strain of muscle, fascia and tendon at neck level, Superficial injury of head. - Condition is Stable. - Discharge Instructions: Contusion, Head Injury, Adult, Contusion, [id number], Cervical Sprain, [id number], Head Injury, Adult, [id number]. - Medication Reconciliation Form, Thank You Letter, Antibiotic Education, Prescription Opioid Use form. - Follow up: Private Physician; When: 1 - 2 days; Reason: Recheck today's complaints, Continuance of care, Re-evaluation by your physician. - Problem is new. - Symptoms have improved. Signatures: Dispatcher [employer] EDMS Ladarius Gillette MD MD cha Chretien, Felicia, RN RN Cyndi Leiva RN RN bb Lasagna, Tonya, RN RN tl1 Corrections: (The following items were deleted from the chart) 05/20 01:06 05/19 21:17 05/19/2019 21:17 Discharged to Home. Impression: Fall due to bumping tl1 against object; Contusion of knee; Abrasion, right knee; Strain of muscle, fascia and tendon at neck level; Superficial injury of head. Condition is Stable. Forms are Medication Reconciliation Form, Thank You Letter, Antibiotic Education, Prescription Opioid Use. Follow up: Private Physician; When: 1 - 2 days; Reason: Recheck today's complaints, Continuance of care, Re-evaluation by your physician. Problem is new. Symptoms have improved. marilyn
[2019-05-19] MEDS ORDERED: TETANUS & DIPHTHERIA TOX,ADULT 0.5 ML VIAL ONE (21:39)
[2019-05-20 02:01] VITALS: BP 132/87; TEMP 98.2; O2SAT 97
--- NOTE | 2019-05-20 11:11 | RAD REPORT ---
EXAM DESCRIPTION: RAD - Knee Right 2 View - 05/19/2019 9:50 pm CLINICAL HISTORY: Fall, knee pain, laceration COMPARISON: January 2014 FINDINGS: No fracture of the distal femur or proximal tibia/ fibula. There is no gross fracture defo rmity of the patella. However, the inferior margin cortex is more shaggy and irregular. A well-define d cortical margin is not seen. This is a change from prior imaging. An avulsed fragment is not confir med. Positioning of the patella relative to the femur is not clearly different from the comparison st udy. The patient has calcifications anterior to the tibia better slightly enlarged from 2014. These a re believed to be posttraumatic patella tendon calcifications that have slowly enlarged. Neither of t he bone densities have the appearance of an acute patella avulsion fracture fragment. No joint effusion is seen. Minimal spurring is seen along the superior articular margin of the patell a and along the lateral compartment tibial plateau. No joint space narrowing. Soft tissues anterior to the knee, distal femur and proximal tibia are thickened. The thickening lawrence brandon is not different from 2014. There does appear to be more edema or contusion in the fatty tissue w ithout any increase in overall tissue thickness. Superficial laceration is seen at the level of the p atella tendon. On plain film there is no evidence for extension to the patella tendon itself. No fore ign body. IMPRESSION: No gross fracture deformity is seen though there is an irregular shaggy margin to the in ferior aspect patella. No avulsed bone fragment seen from the patella. The patella tendon injury is not excluded and needs c orrelation with exam findings. Soft tissue thickening anterior to the knee joint. Fatty component appears more edematous than the co mparison but no overall change to the soft tissue thickening. Clinical concerns for internal derangement or occult bony injury could be further assessed with MR imaging.
--- NOTE | 2019-05-20 12:15 | RAD REPORT ---
EXAM DESCRIPTION: CT - Head C Spine Cap Wo Con - 05/20/2019 3:22 am CLINICAL HISTORY: The patient is 48 years old and is Male; PAIN TECHNIQUE: Axial computed tomography images of the chest, abdomen and pelvis without intravenous con trast. Sagittal and coronal reformatted images were created and reviewed. This CT exam was perfor med using one or more of the following dose reduction techniques: automated exposure control, adjus tment of the mA and/or kV according to patient size, and/or use of iterative reconstruction technique . COMPARISON: No relevant prior studies available. FINDINGS: ARTIFACTS: The exam is suboptimal secondary to motion artifact. CHEST: LUNGS: The lungs are clear of focal opacity, mass, or consolidation. PLEURAL SPACE: Unremarkable. No significant effusion. No pneumothorax. HEART: No cardiomegaly. No pericardial effusion. ABDOMEN: LIVER: Homogeneous without focal mass. GALLBLADDER AND BILE DUCTS: No calcified stones. No ductal dilation. PANCREAS: Unremarkable. No ductal dilation. SPLEEN: Unremarkable. ADRENALS: Unremarkable. No mass. KIDNEYS AND URETERS: No obstructing stones. No hydronephrosis. No perinephric fluid. STOMACH AND BOWEL: The stomach is well distended with food contents and air. The small bowel is grossly normal in caliber. Stool is present throughout the colon. There is no mucosal thickening or e vidence of bowel obstruction. PELVIS: APPENDIX: No findings to suggest acute appendicitis. BLADDER: Unremarkable. No stones. REPRODUCTIVE: Unremarkable as visualized. CHEST, ABDOMEN and PELVIS: INTRAPERITONEAL SPACE: Unremarkable. No significant fluid collection. No free air. BONES/JOINTS: Evaluation of the ribs specifically on the right is limited secondary to motion ar tifact. However, there is no acute fracture of the visualized axial and appendicular skeleton. Eviden ce of healed right transverse process fractures at L2 and L3 is noted. Bilateral pars defects are pre sent at L5 with mild anterolisthesis. SOFT TISSUES: The soft tissues are normal. VASCULATURE: Unremarkable. No aortic aneurysm. LYMPH NODES: Unremarkable. No enlarged lymph nodes. TUBES, LINES AND DEVICES: Battery pack for an epidural stimulator within the left anterior abdom inal wall is noted. IMPRESSION: No evidence of solid organ injury or traumatic bony findings on this noncontrasted CT of the chest, abdomen, and pelvis. EXAM DESCRIPTION: CT Head and Cervical Spine Without Intravenous Contrast CLINICAL HISTORY: The patient is 48 years old and is Male; PAIN TECHNIQUE: Axial computed tomography images of the head/brain and cervical spine without intravenous contrast . Sagittal and coronal reformatted images were created and reviewed. This CT exam was performed u sing one or more of the following dose reduction techniques: automated exposure control, adjustment of the mA and/or kV according to patient size, and/or use of iterative reconstruction technique. COMPARISON: No relevant prior studies available. FINDINGS: ARTIFACTS: The exam is suboptimal secondary to motion artifact. BRAIN: Unremarkable. No hemorrhage. No significant white matter disease. No edema. VENTRICLES: Unremarkable. No ventriculomegaly. SKULL: No acute fracture. SINUSES: Unremarkable as visualized. No acute sinusitis. MASTOID AIR CELLS: Unremarkable as visualized. No mastoid effusion. VERTEBRAE: The vertebral body heights and alignment are maintained. No acute fracture. DISCS/SPINAL CANAL/NEURAL FORAMINA: There is multi-level intervertebral disc height loss. There are disc-osteophyte complexes at several levels, with associated mild spinal canal narrowing. There i s also facet hypertrophy and uncovertebral joint osteophytosis, with associated multilevel neural for aminal narrowing. SOFT TISSUES: The soft tissues are normal. LUNG APICES: The lung apices are relatively clear. IMPRESSION: 1. No acute intracranial findings. 2. Moderate spondylosis of the cervical spine without acute findings. Electronically signed by: Paige Garibay MD 05/19/2019 10:31 PM CDT Due to temporary technical issues with the PACS/Fluency reporting system, reports are being signed by the in house radiologist as a courtesy to ensure prompt reporting. The interpreting radiologist is f ully responsible for the content of the report.
== END 2019-05-20 01:06 | disposition home or self-care (01) ==
LOC: ER 20:13
DX: S00.90XA Unspecified superficial injury of unspecified part of head, initial encounter (principal); S16.1XXA Strain of muscle, fascia and tendon at neck level, initial encounter; S80.01XA Contusion of right knee, initial encounter; K21.9 Gastro-esophageal reflux disease without esophagitis; F32.9 Major depressive disorder, single episode, unspecified; E78.00 Pure hypercholesterolemia, unspecified; W18.00XA Striking against unspecified object with subsequent fall, initial encounter; Y93.E1 Activity, personal bathing and showering; Y92.012 Bathroom of single-family (private) house as the place of occurrence of the external cause; Y99.9 Unspecified external cause status; Z88.6 Allergy status to analgesic agent; Z23 Encounter for immunization
CPT/HCPCS: 70450; 71250; 72125; 90471; 90714; 99284

== ENCOUNTER 2019-06-10 16:15 | Emergency (ER) | payer OTHER ==
--- NOTE | 2019-06-10 17:25 | RAD REPORT ---
EXAM DESCRIPTION: CT - Head C Spine Mpr Wo Con - 06/10/2019 5:07 pm CLINICAL HISTORY: Head and neck injury status post fall. Head and neck pain COMPARISON: October 2018 TECHNIQUE: Computed axial tomography of the head and cervical spine was obtained. Sagittal and coronal reconstruction was performed. All CT scans are performed using dose optimization technique as appropriate and may include automated exposure control or mA/KV adjustment according to patient size. FINDINGS: An intracranial bleed is not seen. The ventricles are normal in caliber. An extra-axial fl uid collection is not noted.Fluid within the visualized sinuses and mastoids is not seen A cervical fracture is not visualized. No dislocation is noted. Mild chronic anterior subluxation C4 on C5. Spondylosis involves the cervical spine IMPRESSION: No acute intracranial abnormality is seen. A cervical fracture is not visualized. If the patient continues to have symptoms to suggest intracra nial /spinal cord pathology then MRI would be recommended
[2019-06-10] MEDS ORDERED: HYDROCODONE/APAP 7.5/325 MG TAB ONE (18:09)
--- NOTE | 2019-06-10 18:14 | ER ---
Nurse's Notes [facility] Name: Dante Staton Age: 48 yrs Sex: Male : 1970 Arrival Date: 06/10/2019 Time: 16:18 Bed 28 Private MD: Diagnosis: Chronic pain, not elsewhere classified;Fall from chair;Unspecified injury of head Presentation: 06/10 16:18 Presenting complaint: EMS states: Pt is on a wheelchair and was unloaded from the bus ca1 through the ramp when the chair fell backwards and hit his head on the ground. Pt also c/o new back pain. Transition of care: patient was not received from another setting of care. Onset of symptoms was June 10, 2019. Risk Assessment: Do you want to hurt yourself or someone else? Patient reports no desire to harm self or others. Initial Sepsis Screen: Does the patient meet any 2 criteria? No. Patient's initial sepsis screen is negative. Does the patient have a suspected source of infection? No. Patient's initial sepsis screen is negative. Care prior to arrival: None. 16:18 Method Of Arrival: EMS: [facility] 16:18 Acuity: ROMAIN 4 ca1 Historical: - Allergies: 16:22 Dilaudid; ca1 - Home Meds: 18:02 trazodone 100 mg Oral tab 1 tab at bedtime [Active]; Vicodin [Active]; ca1 - PMHx: 16:22 Chronic pain; CP; Depression; High Cholesterol; GERD; ca1 - PSHx: 16:22 Appendectomy; ca1 - Immunization history:: Adult Immunizations not up to date. - Social history:: Smoking status: Patient/guardian denies using tobacco. - Ebola Screening: : Patient negative for fever greater than or equal to 101.5 degrees Fahrenheit, and additional compatible Ebola Virus Disease symptoms Patient denies exposure to infectious person Patient denies travel to an Ebola-affected area in the 21 days before illness onset No symptoms or risks identified at this time. Screenin:23 Abuse screen: Denies threats or abuse. Denies injuries from another. Nutritional ca1 screening: No deficits noted. Tuberculosis screening: No symptoms or risk factors identified. Fall Risk Fall in past 12 months (25 points). Secondary diagnosis (15 points) impaired mobility, Gait- Impaired (20 pts.). [place] Fall Scale indicates High Risk Score (45 or more points). Fall prevention measures have been instituted. Side Rails Up X 2 Frequent Obs/Assessments Occuring As available patient and family educated on Fall Prevention Program and Strategies. Assessment: 16:23 General: Appears in no apparent distress. comfortable, Behavior is calm, cooperative, ca1 appropriate for age. Pain: Complains of pain in back Pain currently is 10 out of 10 on a pain scale. Neuro: Level of Consciousness is awake, alert, obeys commands, Oriented to person, place, time, situation. Cardiovascular: Heart tones S1 S2 present Capillary refill < 3 seconds Patient's skin is warm and dry. Respiratory: Airway is patent Respiratory effort is even, unlabored, Respiratory pattern is regular, symmetrical. GI: Abdomen is round non-distended, Bowel sounds present X 4 quads. Abd is soft and non tender X 4 quads. : No deficits noted. No signs and/or symptoms were reported regarding the genitourinary system. EENT: No deficits noted. No signs and/or symptoms were reported regarding the EENT system. Derm: Skin is intact, is healthy with good turgor, Skin is pink, warm \T\ dry. Musculoskeletal: Circulation, motion, and sensation intact. Capillary refill < 3 seconds. 17:30 Reassessment: Patient appears in no apparent distress at this time. Patient and/or ca1 family updated on plan of care and expected duration. Pain level reassessed. Patient is alert, oriented x 3, equal unlabored respirations, skin warm/dry/pink. 18:22 Reassessment: Patient appears in no apparent distress at this time. Patient is alert, ca1 oriented x 3, equal unlabored respirations, skin warm/dry/pink. [facility] [phone] (caregiver). Vital Signs: 16:22 BP 134 / 99; Pulse 82; Resp 16 S; Temp 98.1(O); Pulse Ox 96% on R/A; Weight 86.18 kg ca1 (R); Height 5 ft. 6 in. (167.64 cm) (R); Pain 10/10; 17:30 BP 134 / 95; Pulse 91; Resp 17 S; Pulse Ox 99% on R/A; ca1 18:22 BP 139 / 89; Pulse 83; Resp 16 S; Pulse Ox 97% on R/A; ca1 16:22 Body Mass Index 30.67 (86.18 kg, 167.64 cm) ca1 Eduardo Coma Score: 18:09 Eye Response: spontaneous(4). Verbal Response: oriented(5). Motor Response: obeys snw commands(6). Total: 15. 18:14 Eye Response: spontaneous(4). Verbal Response: oriented(5). Motor Response: obeys snw commands(6). Total: 15. ED Course: 16:18 Patient arrived in ED. ca1 16:20 Triage completed. ca1 16:22 Arm band placed on right wrist. ca1 16:23 Patient has correct armband on for positive identification. Bed in low position. Call ca1 light in reach. Side rails up X2. Pulse ox on. NIBP on. Warm blanket given. 16:23 No provider procedures requiring assistance completed. Patient did not have IV access ca1 during this emergency room visit. 16:34 Kendra Molina, RN is Primary Nurse. ca1 16:38 Tam[facility] Key [facility]-C [facility]. snw 16:38 Vasu Shannon MD is Attending Physician. snw 16:[address] via stretcher. 17:06 CT completed. Patient tolerated procedure well. Patient moved back from CT. tn 17:08 CT Head C Spine In Process Unspecified. EDMS Administered Medications: 18:13 Drug: [place] (7.5 mg-325 mg) 1 tabs Route: PO; ca1 18:23 Follow up: Response: No adverse reaction; Pain is decreased ca1 Outcome: 18:14 Discharge ordered by . snw 18:34 Discharged to home via wheelchair, with caregiver ca1 18:34 Condition: stable 18:34 Discharge instructions given to patient, Instructed on discharge instructions, follow up and referral plans. Demonstrated understanding of instructions, follow-up care. 18:34 Patient left the ED. ca1 Signatures: Dispatcher [employer] EDMS Tammy Key FNP-C FNP-Csnw Jones, Susan sj Jordan, Nathan nj Acob, Cheryl, RN RN ca1
--- NOTE | 2019-06-10 18:15 | EDPHYS ---
Physician Documentation [facility] Name: Dante Staton Age: 48 yrs Sex: Male : 1970 Arrival Date: 06/10/2019 Time: 16:18 Bed 28 Private MD: ED Physician Vasu Shannon HPI: 06/10 18:09 This 48 yrs old Male presents to ER via EMS with complaints of head injury. snw 18:09 The patient or guardian reports pain. The complaints affect the back. Context of snw injury: The problem was sustained outdoors, resulted from pt going up ramp in w/c and fell backward striking occiput. No LOC, No Vomiting. + po challenge successful in ED. Onset: The symptoms/episode began/occurred suddenly, just prior to arrival. Severity of symptoms: At their worst the symptoms were moderate. The patient has not experienced similar symptoms in the past. It is unknown whether or not the patient has recently seen a physician. Historical: - Allergies: 16:22 Dilaudid; ca1 - Home Meds: 18:02 trazodone 100 mg Oral tab 1 tab at bedtime [Active]; Vicodin [Active]; ca1 - PMHx: 16:22 Chronic pain; CP; Depression; High Cholesterol; GERD; ca1 - PSHx: 16:22 Appendectomy; ca1 - Immunization history:: Adult Immunizations not up to date. - Social history:: Smoking status: Patient/guardian denies using tobacco. - Ebola Screening: : Patient negative for fever greater than or equal to 101.5 degrees Fahrenheit, and additional compatible Ebola Virus Disease symptoms Patient denies exposure to infectious person Patient denies travel to an Ebola-affected area in the 21 days before illness onset No symptoms or risks identified at this time. ROS: 18:09 Constitutional: Negative for fever, chills, and weight loss, Eyes: Negative for injury, snw pain, redness, and discharge, ENT: Negative for injury, pain, and discharge, Neck: Negative for injury, pain, and swelling, Cardiovascular: Negative for chest pain, palpitations, and edema, Respiratory: Negative for shortness of breath, cough, wheezing, and pleuritic chest pain, Abdomen/GI: Negative for abdominal pain, nausea, vomiting, diarrhea, and constipation, : Negative for injury, bleeding, discharge, and swelling, MS/Extremity: Negative for injury and deformity, Skin: Negative for injury, rash, and discoloration. 18:09 Back: Positive for pain at rest. 18:09 Neuro: Positive for headache, Negative for loss of consciousness. Exam: 18:08 Head/Face: Normocephalic, atraumatic. Eyes: Pupils equal round and reactive to light, snw extra-ocular motions intact. Lids and lashes normal. Conjunctiva and sclera are non-icteric and not injected. Cornea within normal limits. Periorbital areas with no swelling, redness, or edema. ENT: Nares patent. No nasal discharge, no septal abnormalities noted. Tympanic membranes are normal and external auditory canals are clear. Oropharynx with no redness, swelling, or masses, exudates, or evidence of obstruction, uvula midline. Mucous membranes moist. Neck: Trachea midline, no thyromegaly or masses palpated, and no cervical lymphadenopathy. Supple, full range of motion without nuchal rigidity, or vertebral point tenderness. No Meningismus. Chest/axilla: Normal chest wall appearance and motion. Nontender with no deformity. No lesions are appreciated. Cardiovascular: Regular rate and rhythm with a normal S1 and S2. No gallops, murmurs, or rubs. Normal PMI, no JVD. No pulse deficits. Respiratory: Lungs have equal breath sounds bilaterally, clear to auscultation and percussion. No rales, rhonchi or wheezes noted. No increased work of breathing, no retractions or nasal flaring. Abdomen/GI: Soft, non-tender, with normal bowel sounds. No distension or tympany. No guarding or rebound. No evidence of tenderness throughout. Back: No spinal tenderness. No costovertebral tenderness. Full range of motion. MS/ Extremity: Pulses equal, no cyanosis. Neurovascular intact. Full, normal range of motion. Neuro: Awake and alert, GCS 15, oriented to person, place, time, and situation. Cranial nerves II-XII grossly intact. Motor strength 5/5 in all extremities. Sensory grossly intact. Cerebellar exam normal. Normal gait. 18:08 Constitutional: The patient appears alert, awake, unkempt, w/c bound 2nd to CP 18:08 Skin: Appearance: Color: alanna. Vital Signs: 16:22 BP 134 / 99; Pulse 82; Resp 16 S; Temp 98.1(O); Pulse Ox 96% on R/A; Weight 86.18 kg ca1 (R); Height 5 ft. 6 in. (167.64 cm) (R); Pain 10/10; 17:30 BP 134 / 95; Pulse 91; Resp 17 S; Pulse Ox 99% on R/A; ca1 18:22 BP 139 / 89; Pulse 83; Resp 16 S; Pulse Ox 97% on R/A; ca1 16:22 Body Mass Index 30.67 (86.18 kg, 167.64 cm) ca1 [place] Coma Score: 18:09 Eye Response: spontaneous(4). Verbal Response: oriented(5). Motor Response: obeys snw commands(6). Total: 15. 18:14 Eye Response: spontaneous(4). Verbal Response: oriented(5). Motor Response: obeys snw commands(6). Total: 15. MDM: 16:44 Patient medically screened. snw 18:14 Data reviewed: vital signs, nurses notes. Data interpreted: Pulse oximetry: on room air snw is 99 %. Interpretation: normal. Counseling: I had a detailed discussion with the patient and/or guardian regarding: the historical points, exam findings, and any diagnostic results supporting the discharge/admit diagnosis, the presence of at least one elevated blood pressure reading (>120/80) during this emergency department visit, radiology results, the need for outpatient follow up, to return to the emergency department if symptoms worsen or persist or if there are any questions or concerns that arise at home. Special discussion: I have referred the patient to see his PCP for further evaluation of high blood pressure. Based on the patient's history, exam and DX evaluation, there is no indication for emergent intervention or inpatient [place]. It is understood by the patient/guardian that if the SXs persist or worsen they need to return immediately for re-evaluation. Based on the history and exam findings, there is no indication for further emergent testing or inpatient evaluation. I discussed with the patient/guardian the need to see the primary care provider for further evaluation of the symptoms. 06/10 16:45 Order name: CT Head C Spine; Complete Time: 17:27 snw Administered Medications: 18:13 Drug: [place] (7.5 mg-325 mg) 1 tabs Route: PO; ca1 18:23 Follow up: Response: No adverse reaction; Pain is decreased ca1 Disposition: 06/11 07:31 Co-signature as Attending Physician, Vasu Shannon MD. Disposition: 06/10/19 18:14 Discharged to Home. Impression: Chronic pain, not elsewhere classified, Fall from chair, Unspecified injury of head. - Condition is Stable. - Discharge Instructions: Chronic Pain, Head Injury, Adult. - Medication Reconciliation Form, Thank You Letter, Antibiotic Education, Prescription Opioid Use form. - Follow up: Private Physician; When: 2 - 3 days; Reason: Recheck today's complaints, Continuance of care, Re-evaluation by your physician. Follow up: Emergency Department; When: As needed; Reason: Worsening of condition. - Problem is new. - Symptoms are unchanged. Signatures: Dispatcher [employer] EDMS Tammy Key, EDUCATION SPECIALIST-C EDUCATION SPECIALIST-Csnw Vasu Shannon MD MD Acob, EDILIA Gardner RN ca1 Corrections: (The following items were deleted from the chart) 06/10 18:34 18:14 06/10/2019 18:14 Discharged to Home. Impression: Chronic pain, not elsewhere ca1 classified; Fall from chair; Unspecified injury of head. Condition is Stable. Forms are Medication Reconciliation Form, Thank You Letter, Antibiotic Education, Prescription Opioid Use. Follow up: Private Physician; When: 2 - 3 days; Reason: Recheck today's complaints, Continuance of care, Re-evaluation by your physician. Follow up: Emergency Department; When: As needed; Reason: Worsening of condition. Problem is new. Symptoms are unchanged. snw
[2019-06-10 21:10] VITALS: TEMP 98.1
[2019-06-10 21:12] VITALS: BP 139/89; O2SAT 97
== END 2019-06-10 18:34 | disposition home or self-care (01) ==
LOC: ER 16:15
DX: G89.29 Other chronic pain (principal); W07.XXXA Fall from chair, initial encounter; Y93.89 Activity, other specified; Y92.89 Other specified places as the place of occurrence of the external cause; Z88.8 Allergy status to other drugs, medicaments and biological substances; E78.00 Pure hypercholesterolemia, unspecified; F32.9 Major depressive disorder, single episode, unspecified
CPT/HCPCS: 70450; 72125; 99284

== ENCOUNTER 2019-07-18 07:45 | Emergency (ER) | payer OTHER ==
--- OUTSIDE RECORDS SUMMARY | 2019-07-18 07:46 | XMS REPORT ---
:1970 [facility] Address [address] [place] [address] Care Team Providers Name Role Phone Unavailable Unavailable Unavailable Problems This patient has no known problems. Allergies, Adverse Reactions, Alerts This patient has no known allergies or adverse reactions. Medications This patient has no known medications.
[2019-07-18] MEDS ORDERED: NA CHLORIDE 0.9% 500 ML ONE (08:13)
--- NOTE | 2019-07-18 08:42 | RAD REPORT ---
EXAM DESCRIPTION: CT - Head Brain Wo Cont - 07/18/2019 8:25 am CLINICAL HISTORY: Dizziness, transient alteration of awareness COMPARISON: CT head June 10 ; June 2015 TECHNIQUE: Axial 5 mm thick images of the head were obtained without IV contrast. All CT scans are performed using dose optimization technique as appropriate and may include automated exposure control or mA/KV adjustment according to patient size. FINDINGS: No intracranial hemorrhage is present and no focal mass lesion identifiable. No acute cali ical based infarction identifiable. Sulci of the left parietal lobe are more prominent than seen on t he right. There is no loss of the do matter- white matter junction in either parietal lobe. The asy mmetry of the parietal pattern dates back to 2014. Patient appears to have some early volume loss marilyn nges that affect the left cerebral hemisphere more so than the right. No abnormal extra-axial fluid c ollections. Ventricles are normal in size. Mastoid air cells and visualized portions of the paranasal sinuses are clear. No acute bony findings. IMPRESSION: No hemorrhage, mass or acute intracranial finding identifiable. Patient does have early volume loss changes for patient age. This is more pronounced in the left cere bral hemisphere. Brain parenchymal findings are not clearly different from the study dating 2014. If the patient has c ontinued, unexplained symptoms, followup outpatient MRI imaging may be helpful.
--- NOTE | 2019-07-18 08:45 | RAD REPORT ---
EXAM DESCRIPTION: RAD - Chest Single View - 07/18/2019 8:38 am CLINICAL HISTORY: Transient alteration of awareness, dizziness, shortness of breath COMPARISON: November 2017 TECHNIQUE: AP portable chest image was obtained [id number] hours . FINDINGS: Lung volumes are very low. No peripheral mass or consolidation. Central vasculature and meryl ng markings are prominent and increased slightly compared to the low lung volume 2018 comparison. Tra rocael is midline. Heart size is similar or slightly increased. No measurable pleural effusion and no p neumothorax. No acute bony abnormality seen. No acute aortic findings suspected. IMPRESSION: Mild failure/ volume overload pattern is evident, accentuated due to shallow inspiration .
[2019-07-18 09:41] LABS: Protime INR 1.04
[2019-07-18 09:47] LABS: Absolute Lymphocytes (CBC) 1.1 K/uL (0.7-4.9); Basophils % 0.5 % (0-1.3); Hematocrit 39.3 % (39.6-49.0); Lymphocytes % 24.8 % (15.3-44.8); MPV 7.8 fL (7.6-11.3); RBC Red Blood Cell Count 4.82 M/uL (4.33-5.43)
[2019-07-18 10:02] LABS: Urine Blood NEGATIVE (NEG); Urine Glucose NEGATIVE (NEG); Urine Protein NEGATIVE (NEG); Urine pH 6.5 (5.0-7.0)
[2019-07-18 10:04] LABS: ALT/SGPT 27 U/L (12-78); AST/SGOT 16 U/L (15-37); Albumin 4.1 g/dL (3.4-5.0); Alkaline Phosphatase 94 U/L (45-117); BUN Blood Urea Nitrogen 18 mg/dL (7-18); Bicarbonate 27 mmol/L (21-32); Bilirubin Direct < 0.1 mg/dL (0-0.2); Bilirubin Total 0.3 mg/dL (0.2-1.0); CKMB Creatine Kinase MB 4.5 ng/mL (0.3-3.6); Creatine Phosphokinase 193 U/L (39-308); Glucose Level 95 mg/dL (74-106); Lipase 121 U/L (73-393); Potassium 3.9 mmol/L (3.5-5.1); Protein, Total 7.4 g/dL (6.4-8.2); Sodium Level 140 mmol/L (136-145); Troponin (Emerg Dept Use Only) < 0.02 ng/mL (0.0-0.045)
[2019-07-18 10:10] LABS: Barbiturates NEGATIVE (NEGATIVE); Benzodiazepines NEGATIVE (NEGATIVE); Cocaine NEGATIVE (NEGATIVE); METHAMPHETAM NEGATIVE (NEGATIVE); Methadone NEGATIVE (NEGATIVE); Opiates NEGATIVE (NEGATIVE); Phencyclidine NEGATIVE (NEGATIVE); THC Cannibis NEGATIVE (NEGATIVE)
[2019-07-18 10:19] LABS: Urine Bacteria NONE SEEN /HPF (NONE SEEN); Urine Culture Reflex Order NOT NEEDED; Urine RBC <5 /HPF (NONE SEEN)
[2019-07-18] MEDS ORDERED: NA CHLORIDE 0.9% 50 ML IV ONE (12:15)
[2019-07-18] MEDS ORDERED: NA CHLORIDE 0.9% 100 ML IV ONE (12:15)
--- NOTE | 2019-07-18 12:31 | EDPHYS ---
Physician Documentation [facility] Name: Dante Staton Age: 48 yrs Sex: Male : 1970 Arrival Date: 07/18/2019 Time: 07:52 Bed 7 Private MD: ED Physician Joao Damon HPI: 07/18 08:11 This 48 yrs old Male presents to ER via EMS with complaints of Not feeling kdr well, weak and dizzy. 08:11 The patient states that he awoke this morning feeling weak and dizzy. He has not felt kdr like this before and has no other associated s/s. Onset: The symptoms/episode began/occurred gradually, this morning. Severity of symptoms: At their worst the symptoms were mild moderate in the emergency department the symptoms are unchanged. The patient has not experienced similar symptoms in the past. It is unknown whether or not the patient has recently seen a physician. 08:11 The patient also states that he fell transferring to his wheel chair but denies any kdr injury. Historical: - Allergies: 07:59 Dilaudid; jl7 - Home Meds: 08:31 eszopiclone oral oral [Active]; esomeprazole magnesium oral oral [Active]; gabapentin jl7 oral oral [Active]; sertraline oral oral [Active]; paroxetine oral oral [Active]; Trazodone Oral [Active]; Hydroxyzine Oral [Active]; Bupropion Oral [Active]; Fish Oil oral oral [Active]; oxcarbazepine oral oral [Active]; atorvastatin oral oral [Active]; - PMHx: 07:59 Chronic pain; CP; Depression; GERD; High Cholesterol; jl7 - PSHx: 08:31 Appendectomy; jl7 - Immunization history:: Adult Immunizations not up to date. - Social history:: Smoking status: Patient/guardian denies using tobacco. - Ebola Screening: : No symptoms or risks identified at this time. ROS: 08:11 Constitutional: Negative for fever, chills, and weight loss, Eyes: Negative for injury, kdr pain, redness, and discharge, Neck: Negative for injury, pain, and swelling, Cardiovascular: Negative for chest pain, palpitations, and edema, Respiratory: Negative for shortness of breath, cough, wheezing, and pleuritic chest pain, Abdomen/GI: Negative for abdominal pain, nausea, vomiting, diarrhea, and constipation, Back: Negative for injury and pain, : Negative for injury, bleeding, discharge, and swelling, Skin: Negative for injury, rash, and discoloration, Psych: Negative for depression, anxiety, suicide ideation, homicidal ideation, and hallucinations, Allergy/Immunology: Negative for hives, rash, and allergies, Endocrine: Negative for neck swelling, polydipsia, polyuria, polyphagia, and marked weight changes, Hematologic/Lymphatic: Negative for swollen nodes, abnormal bleeding, and unusual bruising. Exam: 08:11 Constitutional: This is a well developed, well nourished patient who is awake, alert, kdr and in no acute distress. Head/Face: Normocephalic, atraumatic. Eyes: Pupils equal round and reactive to light, extra-ocular motions intact. Lids and lashes normal. Conjunctiva and sclera are non-icteric and not injected. Cornea within normal limits. Periorbital areas with no swelling, redness, or edema. Neck: Trachea midline, no thyromegaly or masses palpated, and no cervical lymphadenopathy. Supple, full range of motion without nuchal rigidity, or vertebral point tenderness. No Meningismus. Chest/axilla: Normal chest wall appearance and motion. Nontender with no deformity. No lesions are appreciated. Cardiovascular: Regular rate and rhythm with a normal S1 and S2. No gallops, murmurs, or rubs. Normal PMI, no JVD. No pulse deficits. Respiratory: Lungs have equal breath sounds bilaterally, clear to auscultation and percussion. No rales, rhonchi or wheezes noted. No increased work of breathing, no retractions or nasal flaring. Abdomen/GI: Soft, non-tender, with normal bowel sounds. No distension or tympany. No guarding or rebound. No evidence of tenderness throughout. Back: No spinal tenderness. No costovertebral tenderness. Due to CP the patient hsa deformed spine and limited ROM Skin: Warm, dry with normal turgor. Normal color with no rashes, no lesions, and no evidence of cellulitis. MS/ Extremity: The patient has CP and has limited lower extremity Psych: Awake, alert, with orientation to person, place and time. Behavior, mood, and affect are within normal limits. Vital Signs: 07:53 BP 142 / 115; Pulse 108; Resp 19 S; Temp 98.6(O); Pulse Ox 97% on R/A; Weight 81.65 kg jl7 (R); 08:00 BP 153 / 107; Pulse 96; Resp 17; Pulse Ox 98% ; ae4 09:20 BP 122 / 101; Pulse 107; Resp 17; Pulse Ox 97% on R/A; ae4 10:56 BP 144 / 95; Pulse 97; Resp 18; Pulse Ox 99% on R/A; ae4 NIH Stroke Scale Scores: 08:00 NIHSS Score: 9 ae4 MDM: 12:30 Patient medically screened. kdr 18:41 Data reviewed: vital signs, nurses notes, lab test result(s), radiologic studies. kdr Counseling: I had a detailed discussion with the patient and/or guardian regarding: the historical points, exam findings, and any diagnostic results supporting the discharge/admit diagnosis, lab results, radiology results. 07/18 08:05 Order name: Basic Metabolic Panel; Complete Time: 10:05 [facility] 07/18 08:05 Order name: Blood Culture Adult (2) kdr 07/18 08:05 Order name: CBC with Diff; Complete Time: 10:05 [facility] 07/18 08:05 Order name: Ckmb; Complete Time: 10:05 [facility] 07/18 08:05 Order name: CPK; Complete Time: 10:05 [facility] 07/18 08:05 Order name: Lactate; Complete Time: 09:49 [facility] 07/18 08:05 Order name: LFT's; Complete Time: 10:05 [facility] 07/18 08:05 Order name: Lipase; Complete Time: 10:05 [facility] 07/18 08:05 Order name: Procalcitonin; Complete Time: 12:27 kdr 07/18 08:05 Order name: Protime (+inr); Complete Time: 09:49 kdr 07/18 08:05 Order name: Ptt, Activated; Complete Time: 09:49 [facility] 07/18 08:05 Order name: Troponin (emerg Dept Use Only); Complete Time: 10:05 [facility] 07/18 08:05 Order name: Urine Microscopic Only; Complete Time: 12:27 kdr 07/18 08:06 Order name: UDS; Complete Time: 10:15 [facility] 07/18 08:05 Order name: Chest Single View XRAY; Complete Time: 09:34 kdr 07/18 08:05 Order name: Accucheck; Complete Time: 08:11 kdr 07/18 08:05 Order name: Cardiac monitoring; Complete Time: 08:33 kdr 07/18 08:05 Order name: EKG - Nurse/Tech; Complete Time: 08:33 kdr 07/18 08:05 Order name: IV Saline Lock - Large Bore; Complete Time: 09:20 kdr 07/18 08:05 Order name: Labs collected and sent; Complete Time: 09:20 kdr 07/18 08:05 Order name: O2 Per Protocol; Complete Time: 08:33 kdr 07/18 08:05 Order name: O2 Sat Monitoring; Complete Time: 08: kdr 07/18 08:05 Order name: Urine Dipstick-Ancillary (obtain specimen); Complete Time: 09:57 kdr 07/18 08:05 Order name: CT Head Brain wo Cont; Complete Time: 09:34 kdr 07/18 08:10 Order name: Glucose, Ancillary Testing; Complete Time: 09:34 EDMS 07/18 09:50 Order name: Urine Dipstick--Ancillary (enter results); Complete Time: 10:05 ms 07/18 10:14 Order name: PROBNP; Complete Time: 12:27 kdr Administered Medications: 09:20 Drug: NS 0.9% 500 ml Route: IV; Rate: bolus; Site: left forearm; ae4 14:35 Drug: Ativan 0.5 mg Route: PO; ae4 15:00 Follow up: Response: Anxiety decreased ae4 Point of Care Testing: Blood Glucose: 07:53 Blood Glucose: 93 mg/dL; jl7 Ranges: Critical Glucose Levels:Adult <50 mg/dl or >400 mg/dl <40 mg/dl or >180 mg/dl Disposition: 07/18/19 12:30 Discharged to Home. Impression: Weakness, Dizziness and giddiness. - Condition is Stable. - Discharge Instructions: Allergies, Adult, Weakness, [id number], Dizziness, [id number]. - Prescriptions for Zofran 4 mg Oral Tablet - take 1 tablet by ORAL route every 12 hours As needed; 6 tablet. - Medication Reconciliation Form, Thank You Letter form. - Follow up: Private Physician; When: 2 - 3 days; Reason: If symptoms return, Further diagnostic work-up, Recheck today's complaints, Continuance of care, Re-evaluation by your physician. - Problem is an acute exacerbation. - Symptoms have improved. NIH Stroke Scale - NIH Stroke Score Date: 07/18/2019 Time: 08:00 Total Score = 9 1a. Level of Consciousness (LOC) - 0(Alert) 1b. Level of Consciousness (LOC) (Year \T\ Age) - 0(Both) 1c. LOC Commands (Open \T\ Closes Eyes/Bathhouse Keeper) - 0(Both) 2. Best Gaze (Lateral Gaze Paresis) - 0(Normal) 3. Visual Field Loss - 0(No visual loss) 4. Facial Palsy - 0(Normal) 5a. Left Arm: Motor (10-second hold) - 3(No effort against gravity) 5b. Right Arm: Motor (10-second hold) - 2(Drift, some effort against gravity) 6a. Left Leg: Motor (5-second hold - always test supine) - 2(Drift, some effort against gravity) 6b. Right Leg: Motor (5-second hold - always test supine) - 2(Drift, some effort against gravity) 7. Limb Ataxia (finger/nose \T\ heel/chaudhari - test with eyes open) - 0(Absent) 8. Sensory Loss (pinprick arms/legs/face) - 0(Normal) 9. Best Language: Aphasia (description/naming/reading) - 0(No aphasia) 10. Dysarthria (speech clarity - read or repeat words) - 0(Normal) 11. Extinction and Inattention (visual/tactile/auditory/spatial/personal) - 0(No abnormality) Initials: ae4 Signatures: Dispatcher [employer] EDMS Joao Damon MD MD kdr Abena Gill RN RN jl7 Mars Goncalves RN RN ae4 Corrections: (The following items were deleted from the chart) 15:57 12:30 07/18/2019 12:30 Discharged to Home. Impression: Weakness; Dizziness and ae4 giddiness. Condition is Stable. Forms are Medication Reconciliation Form, Thank You Letter, Antibiotic Education, Prescription Opioid Use. Follow up: Private Physician; When: 2 - 3 days; Reason: If symptoms return, Further diagnostic work-up, Recheck today's complaints, Continuance of care, Re-evaluation by your physician. Problem is an acute exacerbation. Symptoms have improved. kdr
--- NOTE | 2019-07-18 12:31 | ER ---
Nurse's Notes [facility] Name: Dante Staton Age: 48 yrs Sex: Male : 1970 Arrival Date: 07/18/2019 Time: 07:52 Bed 7 Private MD: Diagnosis: Weakness;Dizziness and giddiness Presentation: 07/18 07:53 Presenting complaint: EMS states: Pt felt dizzy transferring form bed to wheelchair and jl7 fell, did not hit head, denies any pain. Pt reports going to bed feeling normal and felt dizzy, tired and foggy upon waking. Transition of care: patient was not received from another setting of care. No acute neurological deficit is noted. Pre-hospital glucose is not applicable to this patient. Onset of symptoms is unknown. Risk Assessment: Do you want to hurt yourself or someone else? Patient reports no desire to harm self or others. Initial Sepsis Screen: Does the patient meet any 2 criteria? No. Patient's initial sepsis screen is negative. Does the patient have a suspected source of infection? No. Patient's initial sepsis screen is negative. Care prior to arrival: None. 07:53 Method Of Arrival: EMS: [facility] jl7 07:53 Acuity: ROMAIN 3 jl7 Triage Assessment: 08:00 The onset of the patients symptoms was more than six hours ago. General: Appears in no ae4 apparent distress. uncomfortable, unkempt. 08:00 Neuro: Reports dizziness. ae4 08:00 The onset of the patients symptoms was July 18, 2019 at 07:00. ae4 Stroke Activation: Symptom onset > 6 hours Physician: Stroke Attending; Name: ; Notified At: ; Arrived At: Physician: Chief Stroke Resident; Name: ; Notified At: ; Arrived At: Physician: Stroke Resident; Name: ; Notified At: ; Arrived At: Physician: ED Attending; Name: ; Notified At: ; Arrived At: Physician: ED Resident; Name: ; Notified At: ; Arrived At: Historical: - Allergies: 07:59 Dilaudid; jl7 - Home Meds: 08:31 eszopiclone oral oral [Active]; esomeprazole magnesium oral oral [Active]; gabapentin jl7 oral oral [Active]; sertraline oral oral [Active]; paroxetine oral oral [Active]; Trazodone Oral [Active]; Hydroxyzine Oral [Active]; Bupropion Oral [Active]; Fish Oil oral oral [Active]; oxcarbazepine oral oral [Active]; atorvastatin oral oral [Active]; - PMHx: 07:59 Chronic pain; CP; Depression; GERD; High Cholesterol; jl7 - PSHx: 08:31 Appendectomy; jl7 - Immunization history:: Adult Immunizations not up to date. - Social history:: Smoking status: Patient/guardian denies using tobacco. - Ebola Screening: : No symptoms or risks identified at this time. Screenin:31 Abuse screen: Denies threats or abuse. Denies injuries from another. Nutritional jl7 screening: No deficits noted. Tuberculosis screening: No symptoms or risk factors identified. Fall Risk Fall in past 12 months (25 points). Secondary diagnosis (15 points) impaired mobility, IV access (20 points). Ambulatory Aid- None/Bed Rest/Nurse Assist (0 pts). Gait- Weak (10 pts.). Mental Status- Oriented to own ability (0 pts). [place] Fall Scale indicates High Risk Score (45 or more points). Fall prevention measures have been instituted. Side Rails Up X 2 Placed Close to Nursing Station Frequent Obs/Assessments Occuring Family Present and informed to notify staff if the need to leave the bedside As available patient and family educated on Fall Prevention Program and Strategies. Assessment: 08:00 General: Appears in no apparent distress. uncomfortable, unkempt, Behavior is calm, ae4 cooperative. Pain: Denies pain. Neuro: Level of Consciousness is awake, alert, obeys commands, Oriented to person, place, situation. Neuro: Pupils are constricted. Cardiovascular: Heart tones S1 S2 present. Respiratory: Airway is patent Respiratory effort is even, unlabored, Respiratory pattern is regular, symmetrical, Breath sounds are clear bilaterally. GI: Abdomen is round Bowel sounds present X 4 quads. scar to lower left abdomen. Abd is soft in right upper quadrant, left upper quadrant and right lower quadrant lower left quadrant has structure surgically implanted, patient states he has a "pain pump". : No signs and/or symptoms were reported regarding the genitourinary system. EENT: Derm: Skin is dry, Skin temperature is cool. Musculoskeletal: Reports "I don't feel right". 08:00 The patient does not exhibit slurred or garbled speech. Patient's speech is garbled, pt ae4 reports he has cerebral palsy and garbled speech is his "normal" The patient is exhibiting difficulty speaking. The patient is exhibiting difficulty understanding words. T-PA (Activase) Screening: Contraindications: Other: Patient's CT is negative. 08:30 Patient tolerated one teaspoon of water. No drooling, immediate coughing, gurgling, or ae4 clearing of the throat was noted. The patient tolerated 90mL of water. No drooling, immediate coughing, gurgling, or clearing of the throat was noted. The patient passed the bedside swallow screening. Oral medications may be given as ordered. Contact Physician for further diet orders. Provider notified of bedside swallow screening results: Joao Damon MD. 09:07 The patient is able to swallow own secretions with no drooling or need for suction. ae4 09:48 VAN Scoring: Arm Drift: Minor drift Visual Disturbance: No visual disturbance noted. ae4 Aphasia: No aphasia noted. Patient has been NPO before screening. 11:45 Reassessment: Patient assisted onto bedpan to have BM. ae4 13:45 Reassessment: Patient appears in no apparent distress at this time. Patient is awaiting ae4 a cab approved per [employer] Sup. 14:28 Reassessment: Patient is requesting "something to calm my nerves." Provider notified, ae4 new orders received. 14:38 Reassessment: Patient repositioned in bed with assistance, new urinal provided. ae4 awaiting cab ride. Vital Signs: 07:53 BP 142 / 115; Pulse 108; Resp 19 S; Temp 98.6(O); Pulse Ox 97% on R/A; Weight 81.65 kg jl7 (R); 08:00 BP 153 / 107; Pulse 96; Resp 17; Pulse Ox 98% ; ae4 09:20 BP 122 / 101; Pulse 107; Resp 17; Pulse Ox 97% on R/A; ae4 10:56 BP 144 / 95; Pulse 97; Resp 18; Pulse Ox 99% on R/A; ae4 NIH Stroke Scale Scores: 08:00 NIHSS Score: 9 ae4 ED Course: 07:52 Patient arrived in ED. jl7 07:52 Joao Damon MD is Attending Physician. kdr 07:53 Arm band placed on right wrist. jl7 07:56 Triage completed. jl7 08:10 Mars Goncalves, EDILIA is Primary Nurse. ae4 08:[address] ae4 08:[address] via stretcher. ae4 08:26 CT completed. Patient tolerated procedure well. Patient moved back from CT. mw3 08:26 CT Head Brain wo Cont In Process Unspecified. EDMS 08:31 Patient has correct armband on for positive identification. Placed in gown. Bed in low jl7 position. Call light in reach. Side rails up X2. Adult w/ patient. child monitor on. Pulse ox on. NIBP on. Warm blanket given. 08:36 Chest Single View XRAY In Process Unspecified. EDMS 08:47 First set of blood cultures drawn by ED staff. dh3 09:05 Missed attempt(s): 20 gauge in left antecubital area. Blood collected, IV not able ae4 flush.. Missed attempt(s): 20 gauge in right antecubital area. Patient maintains SpO2 saturation greater than 95% on room air. 09:15 Missed attempt(s): 20 gauge in left forearm. Bleeding controlled, band aid applied, dh3 catheter tip intact. 09:18 Inserted saline lock: 22 gauge in left forearm, using aseptic technique. Blood dh3 collected. 09:18 Initial lab(s) drawn, by me, sent to lab. Second set of blood cultures drawn by me. dh3 12:55 IV discontinued, intact, bleeding controlled, No redness/swelling at site. Pressure sv dressing applied. 18:25 No provider procedures requiring assistance completed. ae4 Administered Medications: 09:20 Drug: NS 0.9% 500 ml Route: IV; Rate: bolus; Site: left forearm; ae4 14:35 Drug: Ativan 0.5 mg Route: PO; ae4 15:00 Follow up: Response: Anxiety decreased ae4 Point of Care Testing: Blood Glucose: 07:53 Blood Glucose: 93 mg/dL; jl7 Ranges: Outcome: 12:30 Discharge ordered by . kdr 15:57 Patient left the ED. ae4 15:57 Discharged to home via wheelchair. ae4 15:57 Condition: stable 15:57 Discharge instructions given to patient, Instructed on discharge instructions, Demonstrated understanding of instructions, Prescriptions given X 1. NIH Stroke Scale - NIH Stroke Score Date: 07/18/2019 Time: 08:00 Total Score = 9 1a. Level of Consciousness (LOC) - 0(Alert) 1b. Level of Consciousness (LOC) (Year \\T\\ Age) - 0(Both) 1c. LOC Commands (Open \\T\\ Closes Eyes/Clerical Adviser) - 0(Both) 2. Best Gaze (Lateral Gaze Paresis) - 0(Normal) 3. Visual Field Loss - 0(No visual loss) 4. Facial Palsy - 0(Normal) 5a. Left Arm: Motor (10-second hold) - 3(No effort against gravity) 5b. Right Arm: Motor (10-second hold) - 2(Drift, some effort against gravity) 6a. Left Leg: Motor (5-second hold - always test supine) - 2(Drift, some effort against gravity) 6b. Right Leg: Motor (5-second hold - always test supine) - 2(Drift, some effort against gravity) 7. Limb Ataxia (finger/nose \\T\\ heel/chaudhari - test with eyes open) - 0(Absent) 8. Sensory Loss (pinprick arms/legs/face) - 0(Normal) 9. Best Language: Aphasia (description/naming/reading) - 0(No aphasia) 10. Dysarthria (speech clarity - read or repeat words) - 0(Normal) 11. Extinction and Inattention (visual/tactile/auditory/spatial/personal) - 0(No abnormality) Initials: ae4 Signatures: Dispatcher [employer] Ankita Martin RN RN sv Rittger, Kevin, MD MD [facility] Abena Gill RN RN jl7 Herrera, Deanna [facility] Helen Dumont 3 Mars Goncalves RN RN ae4 Corrections: (The following items were deleted from the chart) : 09:18 Inserted saline lock: 20 gauge in left forearm, using aseptic technique. [facility] Blood collected. [facility] : 09:18 Initial lab(s) drawn, by de, sent to lab. First set of blood cultures [facility] drawn by de, [facility] 09:18 Initial lab(s) drawn, by de, sent to lab. First set of blood cultures [facility] drawn by de, [facility] 12:08 12:07 Neuro: Reports ae4 ae4
[2019-07-18] MEDS ORDERED: LORAZEPAM 0.5 MG TABLET ONE (14:29)
[2019-07-18 17:06] VITALS: TEMP 98.6
[2019-07-18 17:10] VITALS: BP 144/95; O2SAT 99
--- NOTE | 2019-07-19 09:37 | EKG ---
Test Date: 2019-07-18 Test Time: 08:53:17 Complaint Inspector: STEWART MEASUREMENT RESULTS: Intervals: Rate: 103 KS: 128 QRSD: 78 QT: 342 QTc: 448 [place]: P: 40 KS: 128 QRS: 36 T: 30 INTERPRETIVE STATEMENTS: Sinus tachycardia Otherwise normal ECG Compared to ECG 03/06/2019 21:50:59 Sinus rhythm no longer present Myocardial infarct finding no longer present Electronically Signed On 07-19-19 09:36:08 FEATHER BONER by Milton Treadwell
== END 2019-07-18 15:57 | disposition home or self-care (01) ==
LOC: ER 07:45
DX: R42 Dizziness and giddiness (principal); E78.00 Pure hypercholesterolemia, unspecified; F32.9 Major depressive disorder, single episode, unspecified; K21.9 Gastro-esophageal reflux disease without esophagitis; Z88.8 Allergy status to other drugs, medicaments and biological substances
CPT/HCPCS: 93005; 87040 ×2; 85025; 80048; 36415; 82550; 85610; 82947; 80076; 80307 ×8; 83605; 85730; 84484; 82553; 83690; 84145; 83880; 70450; 71045; 99285; J7040; 81003; 81015

== ENCOUNTER 2019-09-24 21:46 | Emergency (ER) | payer OTHER ==
--- OUTSIDE RECORDS SUMMARY | 2019-09-24 21:49 | XMS REPORT ---
:1970 [facility] Address [address] [place] [address] [address] [place] [id number] Care Team Providers Name Role Phone Unavailable Unavailable Unavailable Problems This patient has no known problems. Allergies, Adverse Reactions, Alerts This patient has no known allergies or adverse reactions. Medications This patient has no known medications.
[2019-09-24] MEDS ORDERED: ACETAMINOPHEN 500 MG TAB ONE ×2 (22:15→22:39)
[2019-09-24 22:16] LABS: Absolute Lymphocytes (CBC) 0.4 K/uL (0.7-4.9); Basophils % 0.2 % (0-1.3); Hematocrit 39.9 % (39.6-49.0); Lymphocytes % 4.5 % (15.3-44.8); MPV 7.5 fL (7.6-11.3); RBC Red Blood Cell Count 4.87 M/uL (4.33-5.43)
[2019-09-24] MEDS ORDERED: CEFTRIAXONE/SWI 1gm 1 GM/10 ML SYR ONE (22:16)
[2019-09-24] MEDS ORDERED: NA CHLORIDE 0.9% 2,000 ML ONE (22:16)
[2019-09-24] MEDS ORDERED: NA CHLORIDE 0.9% 500 ML ONE (22:16)
[2019-09-24] MEDS ORDERED: ONDANSETRON 4 MG/2 ML VIAL ONE (22:16)
[2019-09-24 22:20] LABS: Protime INR 1.12
[2019-09-24 22:32] LABS: ALT/SGPT 37 U/L (12-78); AST/SGOT 14 U/L (15-37); Albumin 3.6 g/dL (3.4-5.0); Alkaline Phosphatase 78 U/L (45-117); Amylase Level 51 U/L (25-115); BUN Blood Urea Nitrogen 13 mg/dL (7-18); Bicarbonate 26 mmol/L (21-32); Bilirubin Direct < 0.1 mg/dL (0-0.2); Bilirubin Total 0.2 mg/dL (0.2-1.0); CKMB Creatine Kinase MB 2.1 ng/mL (0.3-3.6); Creatine Phosphokinase 264 U/L (39-308); Glucose Level 107 mg/dL (74-106); Lipase 146 U/L (73-393); Potassium 4.2 mmol/L (3.5-5.1); Protein, Total 6.8 g/dL (6.4-8.2); Sodium Level 137 mmol/L (136-145); Troponin (Emerg Dept Use Only) < 0.02 ng/mL (0.0-0.045)
[2019-09-24 23:26] LABS: Blood Morphology Comment NOTED (NOT SEEN); Elliptocytes 1+; Platelet Estimate ADEQ
[2019-09-24 23:45] LABS: Barbiturates NEGATIVE (NEGATIVE); Benzodiazepines NEGATIVE (NEGATIVE); Cocaine NEGATIVE (NEGATIVE); METHAMPHETAM NEGATIVE (NEGATIVE); Methadone NEGATIVE (NEGATIVE); Opiates NEGATIVE (NEGATIVE); Phencyclidine NEGATIVE (NEGATIVE); THC Cannibis NEGATIVE (NEGATIVE)
[2019-09-24 23:46] LABS: Urine Blood NEGATIVE (NEG); Urine Glucose NEGATIVE (NEG); Urine Protein NEGATIVE (NEG); Urine Specific Gravity 1.015 (1.005-1.030); Urine pH 8.5 (5.0-7.0)
[2019-09-25 00:23] LABS: Urine Bacteria <20 /HPF (NONE SEEN); Urine Culture Reflex Order NOT NEEDED; Urine RBC NONE SEEN /HPF (NONE SEEN)
--- NOTE | 2019-09-25 00:41 | ER ---
Nurse's Notes [facility] Name: Dante Staton Age: 49 yrs Sex: Male : 1970 Arrival Date: 09/24/2019 Time: 21:49 Bed 17 Private MD: Diagnosis: Nausea and vomiting;Fever, unspecified;Dysuria Presentation: 09/24 21:50 Presenting complaint: EMS states: Reports he started having nausea and vomiting that ea started at 5 PM today, EMS reports 102.4 temp. Transition of care: patient was not received from another setting of care. Onset of symptoms was September 24, 2019. Risk Assessment: Do you want to hurt yourself or someone else? Patient reports no desire to harm self or others. Initial Sepsis Screen: Does the patient meet any 2 criteria? Temp <36.0*C (96.8*F)) or > 38.3*C (100.9*F). HR > 90 bpm. Yes Does the patient have a suspected source of infection? No. Patient's initial sepsis screen is negative. Care prior to arrival: None. 21:50 Method Of Arrival: EMS: [facility] ea 21:50 Acuity: ROMAIN 3 ea Triage Assessment: 21:50 General: Appears in no apparent distress. uncomfortable, Behavior is calm, cooperative, rr5 appropriate for age. GI: Reports lower abdominal pain, upper abdominal pain, nausea, vomiting. Historical: - Allergies: 22:03 Dilaudid; ea - Home Meds: 22:03 gabapentin 300 mg oral cap 1 cap 3 times per day [Active]; esomeprazole magnesium 40 mg ea oral cpDR 1 cap once daily [Active]; eszopiclone 3 mg oral tab 1 tab as needed [Active]; bupropion HCl 150 mg oral Tb24 1 tab once daily [Active]; trazodone 100 mg oral tab 1 tab daily [Active]; sertraline 100 mg oral tab 2 tabs once daily [Active]; hydroxyzine HCl 50 mg oral tab 1 tab 4 times per day [Active]; oxcarbazepine 300 mg oral tab 1 tab 2 times per day [Active]; atorvastatin 40 mg oral tab 1 tab once daily [Active]; cyclobenzaprine 10 mg Oral tab 1 tab 2 times per day [Active]; hydroxyzine HCl 50 mg Oral tab 1 tab 4 times per day [Active]; meloxicam 15 mg oral tab 1 tab once daily [Active]; - PMHx: 22:03 High Cholesterol; GERD; Depression; CP; Chronic pain; ea - PSHx: 22:03 Appendectomy; ea - Immunization history:: Adult Immunizations unknown. - Coronavirus screen:: The patient has NOT traveled to [place], [place], or [place] in the past 14 days. - Social history:: Smoking status: Patient denies any tobacco usage or history of. - Ebola Screening: : No symptoms or risks identified at this time. Screenin:53 Abuse screen: Denies threats or abuse. Nutritional screening: No deficits noted. ea Tuberculosis screening: No symptoms or risk factors identified. Fall Risk None identified. Assessment: 21:50 General: Appears in no apparent distress. uncomfortable, Behavior is calm, cooperative, rr5 appropriate for age, Reports chills for fever for 12-24 hours. 21:50 Pain: Complains of pain in abdomen Pain does not radiate. Pain currently is 7 out of 10 rr5 on a pain scale. Quality of pain is described as aching, Pain began gradually, Is intermittent. Neuro: Level of Consciousness is awake, alert, obeys commands, Oriented to person, place, time, situation. Cardiovascular: Capillary refill < 3 seconds Patient's skin is warm and dry. Respiratory: Airway is patent Respiratory effort is even, unlabored, Respiratory pattern is tachypnea. GI: Abdomen is round Pt is actively vomiting clear fluid, Reports upper abdominal pain, nausea, vomiting. : Reports burning with urination. EENT: No signs and/or symptoms were reported regarding the EENT system. Derm: Skin is red, on lower extremities noted. Skin temperature is warm. Musculoskeletal: Capillary refill < 3 seconds, Range of motion: limited in all extremities. 23:10 Reassessment: Patient appears in no apparent distress at this time. No changes from rr5 previously documented assessment. Patient is alert, oriented x 3, equal unlabored respirations, skin warm/dry/pink. awaiting for results. 09/25 00:30 Reassessment: Patient appears in no apparent distress at this time. Patient and/or rr5 family updated on plan of care and expected duration. Pain level reassessed. Patient is alert, oriented x 3, equal unlabored respirations, skin warm/dry/pink. no complaints made with ice handler at bedside. 01:05 Reassessment: Patient appears in no apparent distress at this time. repeat lactate done rr5 and sent to laboratory. Patient states feeling better. Patient states symptoms have improved. 01:30 Reassessment: Patient appears in no apparent distress at this time. Patient is alert, rr5 oriented x 3, equal unlabored respirations, skin warm/dry/pink. discharge instruction given and explained without complaints made. Patient states feeling better. Patient states symptoms have improved. Vital Signs: 09/24 21:52 BP 138 / 92; Pulse 105; Resp 20; Temp 101.6; Pulse Ox 95% on R/A; Weight 81.65 kg; ea Height 5 ft. 9 in. (175.26 cm); 23:00 BP 131 / 85; Pulse 110; Resp 18; Temp 100.5; Pulse Ox 98% ; rr5 09/25 00:00 BP 126 / 79; Pulse 102; Resp 19; Temp 100.2; Pulse Ox 99% on R/A; rr5 01:15 BP 115 / 76; Pulse 99; Resp 18; Temp 99.9; Pulse Ox 98% on R/A; rr5 09/24 21:52 Body Mass Index 26.58 (81.65 kg, 175.26 cm) ea ED Course: 09/24 21:49 Patient arrived in ED. cf2 21:50 Arm band placed on. rr5 21:51 Simon Phillips NP is PHCP. pm1 21:51 Joao Damon MD is Attending Physician. pm1 21:52 Triage completed. ea 21:53 Inserted saline lock: 22 gauge in left forearm, using aseptic technique. ,using aseptic ea technique. per Chalino YEBOAH Blood collected. 21:54 Patient has correct armband on for positive identification. Placed in gown. Bed in low ea position. Call light in reach. Side rails up X2. 22:10 Chalino Ashton RN is Primary Nurse. rr5 22:14 Chest Single View XRAY In Process Unspecified. EDMS 22:30 Inserted saline lock: 22 gauge in right forearm, using aseptic technique. Blood rr5 collected. 22:30 Second set of blood cultures drawn. rr5 22:50 Notified ED physician of a critical lab result(s). lactate 2.6. rr5 23:33 CT Abd/Pelvis - IV Contrast Only In Process Unspecified. EDMS 09/25 01:25 No provider procedures requiring assistance completed. IV discontinued, intact, rr5 bleeding controlled, No redness/swelling at site. Pressure dressing applied. Administered Medications: 09/24 22:35 Drug: NS 0.9% (30 ml/kg) 30 ml/kg Route: IV; Rate: bolus; Site: right forearm; rr5 09/25 01:05 Follow up: Response: No adverse reaction; IV Status: Completed infusion; IV Intake: rr5 2450ml 09/24 22:35 Drug: Zofran 4 mg Route: IVP; Site: right forearm; rr5 23:35 Follow up: Response: No adverse reaction; Marked relief of symptoms rr5 22:39 Drug: Rocephin 1 grams Route: IV; Rate: calculated rate; Site: left forearm; rr5 22:40 Follow up: Response: No adverse reaction; IV Status: Completed infusion; IV Intake: [id number] 22:40 Drug: Tylenol 1000 mg Route: PO; rr5 23:50 Follow up: Response: No adverse reaction; Temperature is decreased rr5 Intake: 22:40 IV: 10ml; Total: 10ml. rr5 09/25 01:05 IV: 2450ml; Total: 2460ml. rr5 Outcome: 00:40 Discharge ordered by . 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 medication usage, Demonstrated understanding of instructions, follow-up care, medications, Prescriptions given X 1. 01:31 Patient left the ED. rr5 Signatures: Dispatcher [employer] EDNM Simon Phillips, GEOVANNY GUEST RELATIONS COORDINATOR pm1 Karolyn Ortiz RN RN ea Roque, Raymond, RN RN rr5 Zaid Vernon cf2
--- NOTE | 2019-09-25 00:41 | EDPHYS ---
Physician Documentation [facility] Name: Dante Staton Age: 49 yrs Sex: Male : 1970 Arrival Date: 09/24/2019 Time: 21:49 Bed 17 Private MD: ED Physician Joao Damon HPI: 09/24 21:46 This 49 yrs old Male presents to ER via EMS with complaints of pm1 Nausea/Vomiting, Fever. 21:46 The patient presents to the emergency department with nausea, vomiting. Onset: The pm1 symptoms/episode began/occurred today, at 17:00. 21:46 Possible causes: unknown. The symptoms are aggravated by nothing. The symptoms are pm1 alleviated by nothing. Associated signs and symptoms: Pertinent positives: dysuria, fever, nausea, vomiting, Pertinent negatives: abdominal pain, constipation, diarrhea. Severity of symptoms: Pain is currently a 0 / 10. It is unknown whether or not the patient has recently seen a physician. Historical: - Allergies: 22:03 Dilaudid; ea - Home Meds: 22:03 gabapentin 300 mg oral cap 1 cap 3 times per day [Active]; esomeprazole magnesium 40 mg ea oral cpDR 1 cap once daily [Active]; eszopiclone 3 mg oral tab 1 tab as needed [Active]; bupropion HCl 150 mg oral Tb24 1 tab once daily [Active]; trazodone 100 mg oral tab 1 tab daily [Active]; sertraline 100 mg oral tab 2 tabs once daily [Active]; hydroxyzine HCl 50 mg oral tab 1 tab 4 times per day [Active]; oxcarbazepine 300 mg oral tab 1 tab 2 times per day [Active]; atorvastatin 40 mg oral tab 1 tab once daily [Active]; cyclobenzaprine 10 mg Oral tab 1 tab 2 times per day [Active]; hydroxyzine HCl 50 mg Oral tab 1 tab 4 times per day [Active]; meloxicam 15 mg oral tab 1 tab once daily [Active]; - PMHx: 22:03 High Cholesterol; GERD; Depression; CP; Chronic pain; ea - PSHx: 22:03 Appendectomy; ea - Immunization history:: Adult Immunizations unknown. - Coronavirus screen:: The patient has NOT traveled to [place], [place], or [place] in the past 14 days. - Social history:: Smoking status: Patient denies any tobacco usage or history of. - Ebola Screening: : No symptoms or risks identified at this time. ROS: 22:05 Eyes: Negative for injury, pain, redness, and discharge. pm1 22:05 ENT: Negative for injury, pain, and discharge, Neck: Negative for injury, pain, and swelling, Cardiovascular: Negative for chest pain, palpitations, and edema, Respiratory: Negative for shortness of breath, cough, wheezing, and pleuritic chest pain. 22:05 Back: Negative for injury and pain. 22:05 MS/Extremity: Negative for injury and deformity, Skin: Negative for injury, rash, and discoloration. 22:05 Neuro: Negative for headache, weakness, numbness, tingling, and seizure. 22:05 Constitutional: Positive for fever, Negative for body aches, poor PO intake. 22:05 Abdomen/GI: Positive for nausea and vomiting, Negative for abdominal pain, diarrhea, constipation. 22:05 : Positive for burning with urination, Negative for flank pain. Exam: 22:05 Constitutional: This is a well developed, well nourished patient who is awake, alert, pm1 and in no acute distress. Head/Face: Normocephalic, atraumatic. Neck: Trachea midline, no thyromegaly or masses palpated, and no cervical lymphadenopathy. Supple, full range of motion without nuchal rigidity, or vertebral point tenderness. No Meningismus. Chest/axilla: Normal chest wall appearance and motion. Nontender with no deformity. No lesions are appreciated. Cardiovascular: Regular rate and rhythm with a normal S1 and S2. No gallops, murmurs, or rubs. Normal PMI, no JVD. No pulse deficits. Respiratory: Lungs have equal breath sounds bilaterally, clear to auscultation and percussion. No rales, rhonchi or wheezes noted. No increased work of breathing, no retractions or nasal flaring. Abdomen/GI: Soft, non-tender, with normal bowel sounds. No distension or tympany. No guarding or rebound. No evidence of tenderness throughout. Back: No spinal tenderness. No costovertebral tenderness. Full range of motion. Skin: Warm, dry with normal turgor. Normal color with no rashes, no lesions, and no evidence of cellulitis. MS/ Extremity: Pulses equal, no cyanosis. Neurovascular intact. Full, normal range of motion. 22:05 Neuro: Orientation: is normal, Motor: is normal, moves all fours. Vital Signs: 21:52 BP 138 / 92; Pulse 105; Resp 20; Temp 101.6; Pulse Ox 95% on R/A; Weight 81.65 kg; ea Height 5 ft. 9 in. (175.26 cm); 23:00 BP 131 / 85; Pulse 110; Resp 18; Temp 100.5; Pulse Ox 98% ; rr5 09/25 00:00 BP 126 / 79; Pulse 102; Resp 19; Temp 100.2; Pulse Ox 99% on R/A; rr5 01:15 BP 115 / 76; Pulse 99; Resp 18; Temp 99.9; Pulse Ox 98% on R/A; rr5 09/24 21:52 Body Mass Index 26.58 (81.65 kg, 175.26 cm) ea MDM: 09/24 21:55 Patient medically screened. pm1 09/25 00:39 Data reviewed: vital signs. Data interpreted: Pulse oximetry: on room air is 99 %. pm1 Interpretation: normal. Counseling: I had a detailed discussion with the patient and/or guardian regarding: the historical points, exam findings, and any diagnostic results supporting the discharge/admit diagnosis, lab results, radiology results, the need for outpatient follow up, to return to the emergency department if symptoms worsen or persist or if there are any questions or concerns that arise at home. 09/24 21:55 Order name: Amylase, Serum; Complete Time: 22:31 pm09/24 21:55 Order name: Basic Metabolic Panel; Complete Time: 22:31 pm09/24 21:55 Order name: Blood Culture Adult (2) pm1 09/24 21:55 Order name: CBC with Diff; Complete Time: 23:50 pm1 09/24 21:55 Order name: Ckmb; Complete Time: 22:31 pm09/24 21:55 Order name: CPK; Complete Time: 22:31 pm09/24 21:55 Order name: Lactate; Complete Time: 22:35 pm09/24 21:55 Order name: LFT's; Complete Time: 22:31 pm09/24 21:55 Order name: Lipase; Complete Time: 22:31 pm09/24 21:55 Order name: Procalcitonin; Complete Time: 22:46 pm1 09/24 21:55 Order name: Protime (+inr); Complete Time: 22:23 pm1 09/24 21:55 Order name: Ptt, Activated; Complete Time: 22:23 pm1 09/24 21:55 Order name: Troponin (emerg Dept Use Only); Complete Time: 22:31 pm09/24 21:55 Order name: Urine Microscopic Only; Complete Time: 00:29 pm1 09/24 21:55 Order name: Chest Single View XRAY pm09/24 21:55 Order name: Accucheck; Complete Time: 00:05 pm09/24 21:55 Order name: Cardiac monitoring; Complete Time: 22:36 pm1 09/24 21:55 Order name: CT Abd/Pelvis - IV Contrast Only pm09/24 21:55 Order name: UDS; Complete Time: 23:50 pm1 09/24 22:40 Order name: Flu; Complete Time: 23:50 pm1 09/24 22:42 Order name: Strep; Complete Time: 23:50 pm1 09/24 22:57 Order name: [place] Screen Profile; Complete Time: 00:04 rr5 09/24 23:16 Order name: Throat Culture EDMS 09/24 23:26 Order name: Manual Differential; Complete Time: 23:50 EDMS 09/24 23:28 Order name: Urine Dipstick--Ancillary (enter results); Complete Time: 23:50 mw2 09/25 00:19 Order name: Glucose, Ancillary Testing; Complete Time: 00:19 EDMS 09/24 21:55 Order name: EKG - Nurse/Tech; Complete Time: 23:22 pm1 09/24 21:55 Order name: IV Saline Lock - Large Bore; Complete Time: 22:36 pm1 09/24 21:55 Order name: Labs collected and sent; Complete Time: 22:36 pm09/24 21:55 Order name: O2 Per Protocol; Complete Time: 22:36 pm1 09/24 21:55 Order name: O2 Sat Monitoring; Complete Time: 22:36 pm1 09/24 21:55 Order name: Urine Dipstick-Ancillary (obtain specimen); Complete Time: 23:22 pm1 Administered Medications: 09/24 22:35 Drug: NS 0.9% (30 ml/kg) 30 ml/kg Route: IV; Rate: bolus; Site: right forearm; rr5 09/25 01:05 Follow up: Response: No adverse reaction; IV Status: Completed infusion; IV Intake: rr5 2450ml 09/24 22:35 Drug: Zofran 4 mg Route: IVP; Site: right forearm; rr5 23:35 Follow up: Response: No adverse reaction; Marked relief of symptoms rr5 22:39 Drug: Rocephin 1 grams Route: IV; Rate: calculated rate; Site: left forearm; rr5 22:40 Follow up: Response: No adverse reaction; IV Status: Completed infusion; IV Intake: [id number] 22:40 Drug: Tylenol 1000 mg Route: PO; rr5 23:50 Follow up: Response: No adverse reaction; Temperature is decreased rr5 Disposition: 09/25 06:02 Co-signature as Attending Physician, Joao Damon MD I agree with the assessment and kdr plan of care. Disposition: 09/25/19 00:40 Discharged to Home. Impression: Nausea and vomiting, Fever, unspecified, Dysuria. - Condition is Stable. - Discharge Instructions: Dysuria, Fever, Adult, Nausea and Vomiting, Adult, Viral Gastroenteritis, Adult. - Prescriptions for Zofran 4 mg Oral Tablet - take 1 tablet by ORAL route every 8 hours As needed; 20 tablet. - Medication Reconciliation Form, Thank You Letter, Antibiotic Education, Prescription Opioid Use form. - Follow up: Emergency Department; When: As needed; Reason: Worsening of condition. Follow up: Private Physician; When: 2 - 3 days; Reason: Recheck today's complaints, Continuance of care, Re-evaluation by your physician. - Problem is new. - Symptoms have improved. Signatures: Dispatcher [employer] EDMS Joao Damon MD MD kdr Marinas, Patrick, NP ENGINEERING AND SCIENTIFIC PROGRAMMER pm1 Karolyn Ortiz RN RN ea Roque, Raymond, RN RN rr5 Corrections: (The following items were deleted from the chart) 00:41 00:40 09/25/2019 00:40 Discharged to Home. Impression: Nausea and vomiting; Fever, pm1 unspecified. Condition is Stable. Forms are Medication Reconciliation Form, Thank You Letter, Antibiotic Education, Prescription Opioid Use. Follow up: Emergency Department; When: As needed; Reason: Worsening of condition. Follow up: Private Physician; When: 2 - 3 days; Reason: Recheck today's complaints, Continuance of care, Re-evaluation by your physician. Problem is new. Symptoms have improved. pm1 01:31 00:41 09/25/2019 00:40 Discharged to Home. Impression: Nausea and vomiting; Fever, rr5 unspecified; Dysuria. Condition is Stable. Forms are Medication Reconciliation Form, Thank You Letter, Antibiotic Education, Prescription Opioid Use. Follow up: Emergency Department; When: As needed; Reason: Worsening of condition. Follow up: Private Physician; When: 2 - 3 days; Reason: Recheck today's complaints, Continuance of care, Re-evaluation by your physician. Problem is new. Symptoms have improved. pm1
[2019-09-25 01:42] VITALS: BP 126/79; TEMP 100.2; O2SAT 99
--- NOTE | 2019-09-25 11:18 | RAD REPORT ---
EXAM DESCRIPTION: RAD - Chest Single View - 09/24/2019 10:10 pm CLINICAL HISTORY: FEVER Chest pain. COMPARISON: Chest Single View dated 07/18/2019; Chest Single View dated 12/04/2017; Chest Pa And Lat (2 Views) dated 09/11/2017; CHEST SINGLE VIEW dated 11/14/2015 FINDINGS: Portable technique limits examination quality. Mild interstitial pulmonary edema is suspected. Heart is mildly enlarged in size. No displaced fractu res.Small pleural effusion suspected. IMPRESSION: Mild CHF.
--- NOTE | 2019-09-27 08:48 | EKG ---
Test Date: 2019-09-24 Test Time: 23:12:11 Allocations Clerk: ROSANNA MEASUREMENT RESULTS: Intervals: Rate: 105 WV: 156 QRSD: 86 QT: 344 QTc: 454 [place]: P: 54 WV: 156 QRS: 24 T: 30 INTERPRETIVE STATEMENTS: Sinus tachycardia Nonspecific T wave abnormality Abnormal ECG Compared to ECG 07/18/2019 08:53:17 T-wave abnormality now present Electronically Signed On 09-27-19 08:47:41 DESTINATION COORDINATOR by Milton Treadwell
--- NOTE | 2019-09-27 12:54 | RAD REPORT ---
EXAM DESCRIPTION: CT Abdomen and Pelvis With Intravenous Contrast CLINICAL HISTORY: The patient is 49 years old and is Male; Dysuria, fever TECHNIQUE: Axial computed tomography images of the abdomen and pelvis with intravenous contrast. S agittal and coronal reformatted images were created and reviewed. This CT exam was performed using one or more of the following dose reduction techniques: automated exposure control, adjustment of t he mA and/or kV according to patient size, and/or use of iterative reconstruction technique. COMPARISON: No relevant prior studies available. FINDINGS: ARTIFACTS: The exam is suboptimal secondary to motion artifact. LUNG BASES: Minimal dependent densities in the lung bases are present. ABDOMEN: LIVER: Unremarkable. No mass. GALLBLADDER AND BILE DUCTS: No calcified stones. No ductal dilation. PANCREAS: No ductal dilation. No mass. SPLEEN: Unremarkable. ADRENALS: Unremarkable. No mass. KIDNEYS AND URETERS: Unremarkable. The kidneys enhance symmetrically. No obstructing renal or ur eteral calculus is seen. No hydronephrosis or hydroureter. No perinephric fluid or stranding. STOMACH AND BOWEL: The stomach is filled with fluid and air. The small bowel is normal in calibe r. Stool is present throughout colon. There is no mucosal thickening or evidence of bowel obstruction . PELVIS: APPENDIX: No findings to suggest acute appendicitis. BLADDER: The bladder is moderately distended. REPRODUCTIVE: Unremarkable as visualized. ABDOMEN and PELVIS: INTRAPERITONEAL SPACE: Unremarkable. No free air. No significant fluid collection. BONES/JOINTS: No acute fracture. SOFT TISSUES: Battery pack projects within the left anterior abdominal wall. VASCULATURE: Unremarkable. No abdominal aortic aneurysm. LYMPH NODES: Unremarkable. No enlarged lymph nodes. TUBES, LINES AND DEVICES: A neural stimulator is present entering the canal at L5-S1. IMPRESSION: No acute findings on this contrasted CT of the abdomen and pelvis to explain the patient 's symptoms. Electronically signed by: Paige Garibay MD 09/24/2019 11:36 PM MEDICAL ASSISTANT PER DIEM Due to temporary technical issues with the PACS/Fluency reporting system, reports are being signed by the in house radiologist as a courtesy to ensure prompt reporting. The interpreting radiologist is f ully responsible for the content of the report.
== END 2019-09-25 01:31 | disposition home or self-care (01) ==
LOC: ER 21:46
DX: F32.9 Major depressive disorder, single episode, unspecified (principal); R30.0 Dysuria; R11.2 Nausea with vomiting, unspecified; E78.00 Pure hypercholesterolemia, unspecified; Z88.8 Allergy status to other drugs, medicaments and biological substances
CPT/HCPCS: 96361; 93005; 87040 ×2; 87070; 85025; 80048; 36415; 82150; 82550; 86308; 85610; 82947; 80076; 87081; 80307 ×8; 83605 ×2; 85730; 84484; 82553; 83690; 84145; 87804 ×2; 74177; 71045; 96375; 96374; 99284; Q9967; J0696; J7040; J7030; J2405; 81003; 81015

== ENCOUNTER 2022-04-23 23:34 | Emergency (ER) | payer OTHER, SELFPAY ==
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
[2022-04-24] MEDS ORDERED: ONDANSETRON 4 MG/2 ML VIAL ONE ×2 (00:02→00:49)
[2022-04-24 00:11] LABS: Absolute Lymphocytes (CBC) 1.8 K/uL (0.7-4.9); Lymphocytes % 21.4 % (15.3-44.8); MCV 80.8 fL (80-100); MPV 7.2 fL (7.6-11.3)
[2022-04-24 00:14] LABS: Protime INR 1.1
[2022-04-24 00:33] LABS: Albumin 3.9 g/dL (3.4-5.0); Bilirubin Direct 0.1 mg/dL (0-0.2); Bilirubin Total 0.5 mg/dL (0.2-1.0); Magnesium 2.2 mg/dL (1.8-2.4); Potassium 3.8 mmol/L (3.5-5.1); Protein, Total 7.8 g/dL (6.4-8.2); Troponin High Sensitivity 4.6 pg/mL (<58.9)
[2022-04-24] MEDS ORDERED: FENTANYL CITR 100 MCG/2 ML ONE ×2 (00:35→01:25)
[2022-04-24] MEDS ORDERED: CEFTRIAXONE 1000 MG/VIAL ONE (00:36)
[2022-04-24] MEDS ORDERED: NA CHLORIDE 0.9% 1,000 ML ONE (00:36)
[2022-04-24] MEDS ORDERED: PROMETHAZINE INJ 25 MG/ML AMP ONE (01:24)
--- NOTE | 2022-04-24 01:53 | ER ---
Nurse's Notes [facility] [place] [facility] Name: Dante Staton Age: 51 yrs Sex: Male : 1970 Arrival Date: 04/23/2022 Time: 23:35 Bed 4 Private MD: Diagnosis: Nausea with vomiting, unspecified Presentation: 04/23 23:40 Chief complaint: EMS states: they were toned out for report of pt with testicular pain bb for 4 days pt states he also is having difficulty urinating and is nauseated. Coronavirus screen: At this time, the client does not indicate any symptoms associated with coronavirus-19. Ebola Screen: No symptoms or risks identified at this time. Initial Sepsis Screen: Does the patient meet any 2 criteria? No. Patient's initial sepsis screen is negative. Does the patient have a suspected source of infection? No. Patient's initial sepsis screen is negative. Risk Assessment: Do you want to hurt yourself or someone else? Patient reports no desire to harm self or others. Onset of symptoms was April 20, 2022. 23:40 Method Of Arrival: EMS: [facility] bb 23:40 Acuity: ROMAIN 3 bb Historical: - Allergies: 04/24 00:10 Dilaudid; bb - Home Meds: 00:10 trazodone 100 mg Oral tab 1 tab daily [Active]; bupropion HCl 150 mg Oral Tb24 1 tab bb once daily [Active]; esomeprazole magnesium 40 mg Oral cpDR 1 cap once daily [Active]; cetirizine oral [Active]; fluoxetine Oral [Active]; Loperamide Oral [Active]; Zolpidem Tartrate Oral [Active]; Methocarbamol Oral [Active]; - PMHx: 00:10 Chronic pain; CP; Depression; GERD; High Cholesterol; bb - Immunization history:: Adult Immunizations unknown. - Social history:: Smoking status: unknown. - Family history:: not pertinent. Screenin:14 Abuse screen: Denies threats or abuse. Nutritional screening: No deficits noted. bb Tuberculosis screening: No symptoms or risk factors identified. Fall Risk None identified. Assessment: 00:14 General: Appears uncomfortable, Behavior is cooperative, anxious. Pain: Complains of bb pain in testicles. Neuro: Level of Consciousness is awake, alert, obeys commands, Oriented to person, place, situation. Cardiovascular: Capillary refill < 3 seconds Patient's skin is warm and dry. Respiratory: Respiratory effort is even, unlabored, Respiratory pattern is regular. GI: Abdomen is non-distended. GI: Reports nausea. Derm: Skin is pink, warm \T\ dry. Musculoskeletal: Circulation, motion, and sensation intact. 00:37 Reassessment: US at bedside pt vomiting EDP notified new orders received pt medicated bb see OCT. 01:00 Reassessment: No changes from previously documented assessment. Patient and/or family vc1 updated on plan of care and expected duration. Pain level reassessed. 02:00 Reassessment: No changes from previously documented assessment. Changed pts gown and vc1 provided him with a warm blanket. 05:50 Reassessment: Patient is alert, oriented x 3, equal unlabored respirations, skin bb warm/dry/pink. pt verbalized understanding of and agrees to plan of care discharge instructions given pt assisted to exit via his wheelchair. Vital Signs: 04/23 23:40 BP 157 / 96; Pulse 103; Resp 20 S; Temp 98.9(O); Pulse Ox 97% on R/A; Weight 90.26 kg bb (R); Height 5 ft. 9 in. (175.26 cm) (R); Pain 9/10; 04/24 05:41 BP 150 / 93; vc1 05:48 Pulse 89; Resp 20; Pulse Ox 98% ; vc1 05:51 BP 150 / 93; Pulse 83; Resp 18 S; Pulse Ox 96% on R/A; bb 04/23 23:40 Body Mass Index 29.39 (90.26 kg, 175.26 cm) ED Course: 04/23 23:35 Patient arrived in ED. mw2 23:42 Ladarius Gillette MD is Attending Physician. [facility] 04/24 00:02 Tara Yepez, RN is Primary Nurse. kb3 00:03 Inserted saline lock: 20 gauge in right hand, using aseptic technique. Blood collected. kb3 00:10 Triage completed. bb 00:10 Arm band placed on Patient placed in an exam room, on a stretcher, on pulse oximetry. bb 00:14 Patient has correct armband on for positive identification. Bed in low position. Call bb light in reach. Side rails up X2. 00:15 XRAY Chest (1 view) In Process Unspecified. EDMS 00:52 US Scrotum Testicles In Process Unspecified. EDMS 01:15 Stone Protocol In Process Unspecified. EDMS 01:52 Lenny Nolan MD is Referral Physician. marilyn 05:40 No provider procedures requiring assistance completed. IV discontinued, intact, vc1 bleeding controlled, No redness/swelling at site. Pressure dressing applied. Administered Medications: 00:00 Drug: Zofran (Ondansetron) 4 mg Route: IVP; Site: right hand; kb3 00:20 Drug: NS 0.9% 1000 ml Route: IV; Rate: 1 bolus; Site: right hand; bb 00:20 Drug: fentaNYL (PF) 50 mcg Route: IVP; Site: right hand; bb 00:22 Drug: Rocephin (cefTRIAXone) 1 grams Route: IV; Rate: per protocol; Site: right hand; bb 01:20 Drug: Phenergan (promethazine) 12.5 mg Route: IVP; Site: right hand; as6 01:20 Drug: fentaNYL (PF) 50 mcg Route: IVP; Site: right hand; as6 Medication: 00:14 VIS not applicable for this client. bb Outcome: 01:52 Discharge ordered by . marilyn 05:41 Discharged to home via wheelchair. vc1 05:41 Condition: good 05:41 Discharge instructions given to patient, Instructed on discharge instructions, follow up and referral plans. medication usage, Demonstrated understanding of instructions, follow-up care, medications, Prescriptions given X 3. 05:52 Patient left the ED. bb Signatures: Dispatcher [employer] EDIL Ladarius Gillette MD MD cha Ballard, Brenda, RN RN bb Severino Schmitt mw2 Juaquin Rutherford RN RN as6 eMrcedes Kramer RN RN vc1 Tara Yepez, RN RN kb3
--- NOTE | 2022-04-24 01:53 | EDPHYS ---
Physician Documentation [facility] Name: Dante Staton Age: 51 yrs Sex: Male : 1970 Arrival Date: 04/23/2022 Time: 23:35 Bed 4 Private MD: ED Physician Ladarius Gillette HPI: 04/23 23:56 This 51 yrs old Male presents to ER via Unassigned with complaints of marilyn testicle pain, vomiting. 23:56 The patient presents with abdominal pain in the upper abdomen, in the lower abdomen. marilyn Onset: The symptoms/episode began/occurred just prior to arrival. The patient presents to the emergency department with nausea, vomiting. Onset: The symptoms/episode began/occurred just prior to arrival. Possible causes: unknown. The symptoms are aggravated by nothing. The symptoms are alleviated by nothing. The patient presents with scrotal pain, of both sides. Associated signs and symptoms: Pertinent positives: nausea, vomiting. Historical: - Allergies: 04/24 00:10 Dilaudid; bb - Home Meds: 00:10 trazodone 100 mg Oral tab 1 tab daily [Active]; bupropion HCl 150 mg Oral Tb24 1 tab bb once daily [Active]; esomeprazole magnesium 40 mg Oral cpDR 1 cap once daily [Active]; cetirizine oral [Active]; fluoxetine Oral [Active]; Loperamide Oral [Active]; Zolpidem Tartrate Oral [Active]; Methocarbamol Oral [Active]; - PMHx: 00:10 Chronic pain; CP; Depression; GERD; High Cholesterol; bb - Immunization history:: Adult Immunizations unknown. - Social history:: Smoking status: unknown. - Family history:: not pertinent. ROS: 04/23 23:56 Constitutional: Negative for fever, chills, and weight loss, Eyes: Negative for injury, marilyn pain, redness, and discharge, ENT: Negative for injury, pain, and discharge, Neck: Negative for injury, pain, and swelling, Cardiovascular: Negative for chest pain, palpitations, and edema, Respiratory: Negative for shortness of breath, cough, wheezing, and pleuritic chest pain, Back: Negative for injury and pain, MS/Extremity: Negative for injury and deformity, Skin: Negative for injury, rash, and discoloration, Neuro: Negative for headache, weakness, numbness, tingling, and seizure, Psych: Negative for depression, anxiety, suicide ideation, homicidal ideation, and hallucinations, Allergy/Immunology: Negative for hives, rash, and allergies, Endocrine: Negative for neck swelling, polydipsia, polyuria, polyphagia, and marked weight changes, Hematologic/Lymphatic: Negative for swollen nodes, abnormal bleeding, and unusual bruising. Abdomen/GI: Positive for nausea, vomiting. : Positive for testicular pain Exam: 23:56 Constitutional: This is a well developed, well nourished patient who is awake, alert, marilyn and in no acute distress. Head/Face: Normocephalic, atraumatic. Eyes: Pupils equal round and reactive to light, extra-ocular motions intact. Lids and lashes normal. Conjunctiva and sclera are non-icteric and not injected. Cornea within normal limits. Periorbital areas with no swelling, redness, or edema. ENT: Nares patent. No nasal discharge, no septal abnormalities noted. Tympanic membranes are normal and external auditory canals are clear. Oropharynx with no redness, swelling, or masses, exudates, or evidence of obstruction, uvula midline. Mucous membranes moist. Neck: Trachea midline, no thyromegaly or masses palpated, and no cervical lymphadenopathy. Supple, full range of motion without nuchal rigidity, or vertebral point tenderness. No Meningismus. Chest/axilla: Normal chest wall appearance and motion. Nontender with no deformity. No lesions are appreciated. Cardiovascular: Regular rate and rhythm with a normal S1 and S2. No gallops, murmurs, or rubs. Normal PMI, no JVD. No pulse deficits. Respiratory: Lungs have equal breath sounds bilaterally, clear to auscultation and percussion. No rales, rhonchi or wheezes noted. No increased work of breathing, no retractions or nasal flaring. Abdomen/GI: Soft, non-tender, with normal bowel sounds. No distension or tympany. No guarding or rebound. No evidence of tenderness throughout. Back: No spinal tenderness. No costovertebral tenderness. Full range of motion. Male : Normal genitalia with no discharge or lesions. Skin: Warm, dry with normal turgor. Normal color with no rashes, no lesions, and no evidence of cellulitis. MS/ Extremity: Pulses equal, no cyanosis. Neurovascular intact. Full, normal range of motion. Neuro: Awake and alert, GCS 15, oriented to person, place, time, and situation. Cranial nerves II-XII grossly intact. Motor strength 5/5 in all extremities. Sensory grossly intact. Cerebellar exam normal. Normal gait. Psych: Awake, alert, with orientation to person, place and time. Behavior, mood, and affect are within normal limits. 04/24 01:30 ECG was reviewed by the Attending Physician. [facility] Vital Signs: 04/23 23:40 BP 157 / 96; Pulse 103; Resp 20 S; Temp 98.9(O); Pulse Ox 97% on R/A; Weight 90.26 kg bb (R); Height 5 ft. 9 in. (175.26 cm) (R); Pain /; 04/24 05:41 BP 150 / 93; vc1 05:48 Pulse 89; Resp 20; Pulse Ox 98% ; vc1 05:51 BP 150 / 93; Pulse 83; Resp 18 S; Pulse Ox 96% on R/A; bb 04/23 23:40 Body Mass Index 29.39 (90.26 kg, 175.26 cm) bb MDM: 04/23 23:42 Patient medically screened. marilyn 23:58 Differential diagnosis: diverticulitis, gastroenteritis, nonspecific abdominal pain, marilyn UTI, urinary retention, urethritis, bowel obstruction, gastritis, non-specific abd pain, pancreatitis, Peptic Ulcer Disease. Data reviewed: vital signs, nurses notes, lab test result(s), EKG, radiologic studies, doppler, plain films. Data interpreted: traffic monitor specialist: rate is 98 beats/min, rhythm is regular, Pulse oximetry: on room air is 98 %. Test interpretation: by ED physician or midlevel provider: ECG, plain radiologic studies. Counseling: I had a detailed discussion with the patient and/or guardian regarding: the historical points, exam findings, and any diagnostic results supporting the discharge/admit diagnosis, the presence of at least one elevated blood pressure reading (>120/80) during this emergency department visit, lab results, radiology results, the need for outpatient follow up. 04/23 23:54 Order name: Basic Metabolic Panel; Complete Time: 01:13 marilyn 04/23 23:54 Order name: CBC with Diff [facility] 04/23 23:54 Order name: LFT's; Complete Time: 01:13 [facility] 04/23 23:54 Order name: Magnesium; Complete Time: 01:13 [facility] 04/23 23:54 Order name: NT PRO-BNP; Complete Time: 01:13 [facility] 04/23 23:54 Order name: PT-INR [facility] 04/23 23:54 Order name: Troponin HS; Complete Time: 01:13 [facility] 04/23 23:54 Order name: XRAY Chest (1 view) [facility] 04/23 23:54 Order name: Lipase; Complete Time: 01:13 [facility] 04/23 23:54 Order name: US Scrotum Testicles [facility] 04/23 23:54 Order name: CT Stone Protocol [facility] 04/23 23:54 Order name: Urine Culture [facility] 04/23 23:59 Order name: Stone Protocol EDAL 04/23 23:54 Order name: EKG; Complete Time: 23:55 [facility] 04/23 23:54 Order name: Cardiac monitoring; Complete Time: 01:06 [facility] 04/23 23:54 Order name: EKG - Nurse/Tech; Complete Time: 01:06 [facility] 04/23 23:54 Order name: IV Saline Lock; Complete Time: 00:17 [facility] 04/23 23:54 Order name: Labs collected and sent; Complete Time: 00:17 [facility] 04/23 23:54 Order name: O2 Per Protocol; Complete Time: 00:17 [facility] 04/23 23:54 Order name: O2 Sat Monitoring; Complete Time: 00:17 [facility] EC/31 01:30 Rate is 108 beats/min. Rhythm is regular. QRS [place] is Normal. OK interval is normal. [facility] QRS interval is normal. QT interval is normal. No Q waves. T waves are Normal. No ST changes noted. Clinical impression: NSR w/ Non-specific ST/T Changes and No evidence of ischemia. Administered Medications: 00:00 Drug: Zofran (Ondansetron) 4 mg Route: IVP; Site: right hand; kb3 00:20 Drug: NS 0.9% 1000 ml Route: IV; Rate: 1 bolus; Site: right hand; bb 00:20 Drug: fentaNYL (PF) 50 mcg Route: IVP; Site: right hand; bb 00:22 Drug: Rocephin (cefTRIAXone) 1 grams Route: IV; Rate: per protocol; Site: right hand; bb 01:20 Drug: Phenergan (promethazine) 12.5 mg Route: IVP; Site: right hand; as6 01:20 Drug: fentaNYL (PF) 50 mcg Route: IVP; Site: right hand; as6 Disposition Summary: 04/24/22 01:52 Discharge Ordered Location: Home [facility] Problem: new marilyn Symptoms: have improved marilyn Condition: Stable marilyn Diagnosis - Nausea with vomiting, unspecified marilyn Followup: marilyn - With: Private Physician - When: 2 - 3 days - Reason: Recheck today's complaints, Continuance of care, Re-evaluation by your physician Followup: marilyn - With: - When: 5 - 6 days - Reason: Recheck today's complaints, Re-evaluation by your physician Discharge Instructions: - Discharge Summary Sheet [facility] - Nausea and Vomiting, Adult [facility] Forms: - Medication Reconciliation Form [facility] - Thank You Letter marilyn - Antibiotic Education [facility] - Prescription Opioid Use [facility] Prescriptions: - Pepcid 20 mg Oral Tablet - take 1 tablet by ORAL route every 12 hours for 21 days; 42 tablet; Refills: 0, [facility] Product Selection Permitted - Zofran 4 mg Oral Tablet - take 1 tablet by ORAL route every 12 hours As needed; 20 tablet; Refills: 0, [facility] Product Selection Permitted - promethazine 25 mg Oral Tablet - take 1 tablet by ORAL route every 6 hours As needed; 20 tablet; Refills: 0, [facility] Product Selection Permitted Signatures: Dispatcher [employer] Ladarius Sheehan MD MD cha Ballard, Brenda, RN RN bb Juaquin Rutherford RN RN as6 Mercedes Kramer RN RN vc1 Tara Yepez RN RN kb3
[2022-04-24 06:14] VITALS: TEMP 98.9
[2022-04-24 06:21] VITALS: BP 150/93
[2022-04-24 06:34] VITALS: O2SAT 96
--- NOTE | 2022-04-24 16:54 | RAD REPORT ---
EXAM DESCRIPTION: Stone Protocol 04/24/2022 1:28 AM CDT CLINICAL HISTORY: 51 years, Male, Flank pain, kidney stone suspected COMPARISON: None TECHNIQUE: Multiple transaxial tomograms of the abdomen and pelvis were performed from the lung base s to the symphysis pubis 3 mm slice thickness at 3 mm interval reconstruction, without administration of IV and oral contrast. Multiplanar reformats in the sagittal and coronal plane were generated and reviewed. This exam was performed according to our departmental dose-optimization protocol, which includes auto mated exposure control, adjustment of the mA and/or kV according to patient size and/or use of iterat roopa reconstruction technique. FINDINGS: The lack of IV and oral contrast limits evaluation of solid organs, subtle lesions cannot be excluded. In addition several images are compromised by motion artifact limiting diagnostic value The lung bases grossly demonstrate to be clear. Mild elevation right hemidiaphragm. Epidural neurosti mulator thoracic spine incompletely assessed. Grossly the unopacified liver, gallbladder, pancreas, spleen and adrenal glands demonstrate to be wit hin normal limits, no significant focal lesions were identified. The kidneys demonstrate grossly unremarkable. There is no evidence for nephrolithiasis and/or hydro nephrosis. No focal masses were demonstrated. Grossly the unopacified stomach, small bowel and large bowel demonstrate to be within normal limits. No significant bowel dilatation. The urinary bladder demonstrate to be within normal limits. The prostate gland demonstrate to be with in normal limits The aorta demonstrate to be within normal limits. There is no retroperitoneal lymp hadenopathy. There is no evidence for ascites. The rest of the soft tissue demonstrate to be grossl y unremarkable. There is a small umbilical hernia. IMPRESSION: No evidence for nephrolithiasis and/or hydronephrosis. Electronically signed by: Tello Gasca MD 04/24/2022 1:30 AM CDT Due to temporary technical issues with the PACS/Fluency reporting system, reports are being signed by the in house radiologists without review as a courtesy to insure prompt reporting. The interpreting radiologist is fully responsible for the content of the report.
--- NOTE | 2022-04-24 17:00 | RAD REPORT ---
EXAM DESCRIPTION: Scrotum Testicles 04/24/2022 1:09 AM CDT CLINICAL HISTORY: 51 years, Male, PAIN COMPARISON: None. FINDINGS: Multiple grayscale images of the testicles were performed. Color Doppler imaging was used to assess vascular flow. The right testicle measures 4.2 x 2.1 x 2.7 cm, the right epididymis measured 1.6 x 0.8 x 1.0 cm. The re is normal vascular flow. There is a small trace of hydrocele. There is normal vascular flow. The re is normal skin thickening The left testicle measured 3.7 x 2.4 x 3.5 cm, the left epididymis measured 1.4 x 0.5 x 0.8 cm. There is a epididymal head cyst measuring 0.5 x 0.5 cm. There is small left hydrocele. There is normal vas cular flow. There is no evidence for hydrocele. There is no hypoechoic lesion in either testicle. IMPRESSION: No evidence of testicular torsion. Small bilateral hydroceles. Small left epididymal head cyst. Electronically signed by: Tello Gasca MD 04/24/2022 1:12 AM CDT Due to temporary technical issues with the PACS/Fluency reporting system, reports are being signed by the in house radiologists without review as a courtesy to insure prompt reporting. The interpreting radiologist is fully responsible for the content of the report.
--- NOTE | 2022-04-24 18:35 | RAD REPORT ---
EXAM DESCRIPTION: Chest Single View 04/24/2022 12:19 AM CDT CLINICAL HISTORY: 51 years, Male, COUGH COMPARISON: None FINDINGS: Single view of the chest was obtained portable. No prior films are available for compariso n. The cardiomediastinal silhouette demonstrate to be unremarkable. The heart is not enlarged. The thoracic aorta is tortuous. Mild elevation right hemidiaphragm. No significant pleural effusions/or f ocal areas of consolidation. The rest of the soft tissue and bony structures demonstrate to be unre markable. IMPRESSION: No acute cardiopulmonary disease seen. Electronically signed by: Tello Gasca MD 04/24/2022 12:20 AM CDT Due to temporary technical issues with the PACS/Fluency reporting system, reports are being signed by the in house radiologists without review as a courtesy to insure prompt reporting. The interpreting radiologist is fully responsible for the content of the report.
== END 2022-04-24 05:52 | disposition home or self-care (01) ==
LOC: ER 23:34
DX: R11.2 Nausea with vomiting, unspecified (principal); R10.30 Lower abdominal pain, unspecified; R10.10 Upper abdominal pain, unspecified; E78.00 Pure hypercholesterolemia, unspecified; F32.A Depression, unspecified; Z88.5 Allergy status to narcotic agent
CPT/HCPCS: 36415; 71045; 74176; 76377; 76870; 80048; 80076; 83690; 83735; 83880; 84484; 85025; 85610; J2405; J2550; J3010; J7030